=== PATIENT | female | born 1940 | race Hispanic/Latino ===

== ENCOUNTER 2017-01-17 18:45 | Emergency (ER) | payer MEDICAID, SELFPAY ==
[2017-01-17 19:24] LABS: #Basophils 0.1 thou/uL (0.0-0.2); #Eosinphils 0.3 thou/uL (0.0-0.7); #Monocytes 0.5 thou/uL (0.11-0.59); #Neutrophils 2.5 thou/uL (1.40-6.50); %Basophils 1.5 % (0.0-1.0); %Eosinophils 4.6 % (0.0-10.0); %Monocytes 7.2 % (0.0-10.0); Hematocrit 39.7 % (36.0-47.0); Mean Platelet Volume 6.6 fL (7.4-10.4); Red Blood Cell (RBC) Count 4.22 mill/uL (4.20-5.40); White Blood Cell (WBC) Count 6.3 thou/uL (4.8-10.8)
[2017-01-17 19:38] LABS: Lactic Acid - Sepsis 1.2 mmol/L (0.5-2.2)
[2017-01-17 19:43] LABS: ALT (SGPT) 13 U/L (8-55); AST (SGOT) 20 U/L (5-34); Alkaline Phosphatase 78 U/L (40-150); Anion Gap 15 mmol/L (10-20); BUN (Urea Nitrogen) 21 mg/dL (9.8-20.1); Bilirubin, Total 0.4 mg/dL (0.2-1.2); CK (CPK) 121 U/L (29-168); Calc. Creatinine Clearance 0 mL/min (70-130); Calcium 10.1 mg/dL (7.8-10.44); Carbon Dioxide 27 mmol/L (23-31); Chloride 103 mmol/L (98-107); Estimated GFR-MDRD 36; Globulin 3.6 g/dL (2.4-3.5); Protein, Total 7.8 g/dL (6.0-8.3)
[2017-01-17 19:48] LABS: Troponin I Less than 0.010 ng/mL (< 0.028)
[2017-01-17 20:35] LABS: Bilirubin Negative (Negative); Blood, Urine Negative (Negative); Glucose, Urine (Dipstick) Negative (Negative); Ketone, Urine Trace mg/dL (Negative); Nitrite Negative (Negative); Protein, Urine (Dipstick) 30 mg/dL (Neg-Trace)
[2017-01-17 20:39] LABS: Bacteria/HPF None Seen HPF (None Seen); Hyaline Casts/LPF 4-6 HYALINE CAST LPF (0-3 Hyaline); RBC/HPF 0-3 HPF (0-3); Squamous Epithelial 0-3 HPF (0-3)
[2017-01-17] MEDS ORDERED: Ondansetron ODT 4 MG TAB ONE (21:16)
--- NOTE | 2017-01-17 22:45 | RAD ---
ABDOMEN TWO VIEWS UPRIGHT CHEST: History: Nausea, vomiting. FINDINGS: Lung alfredo are clear. Bowel gas pattern unremarkable. Scattered stool and gas in the colon. No free air. No significant sma ll bowel gas. IMPRESSION: No acute abnormality identified. There is a scoliotic curvature of the lumbar spine with degenerative changes in the spine noted. POS: JOSE DANIEL
== END 2017-01-17 23:23 | disposition home or self-care (01) ==
LOC: ERS 18:45
DX: E86.0 Dehydration (principal); R11.2 Nausea with vomiting, unspecified; E11.9 Type 2 diabetes mellitus without complications; Z79.84 Long term (current) use of oral hypoglycemic drugs
CPT/HCPCS: 36416; 74022; 80053; 81003; 81015; 82553; 83605; 84484; 85025; 93005; 96360; Q0162

== ENCOUNTER 2017-12-08 22:16 | Emergency (ER) | payer SELFPAY ==
[2017-12-08 23:01] LABS: Bilirubin Negative (Negative); Blood, Urine Negative (Negative); Clarity CLEAR (Clear); Glucose, Urine (Dipstick) 500 mg/dL (Negative); Leukocyte Negative (Negative); Nitrite Negative (Negative); Protein, Urine (Dipstick) Negative (Neg-Trace); Specific Gravity, Urine 1.005 (1.002-1.036); Urobilinogen 0.2 mg/dL (0.2-1.0)
[2017-12-08 23:05] LABS: #Basophils 0.1 thou/uL (0.0-0.2); #Eosinphils 0.3 thou/uL (0.0-0.7); #Monocytes 0.6 thou/uL (0.11-0.59); #Neutrophils 4.1 thou/uL (1.40-6.50); %Basophils 0.9 % (0.0-1.0); %Eosinophils 3.6 % (0.0-10.0); %Lymphocytes 37.2 % (21.0-51.0); %Monocytes 6.9 % (0.0-10.0); %Neutrophils 51.4 % (42.0-75.0); Hemoglobin 12.2 g/dL (12.0-16.0); Mean Corpuscular HGB CONC 34.5 g/dL (32.0-36.0); Mean Corpuscular Hemoglobin 30.1 pg (27.0-31.0); Mean Corpuscular Volume 87.2 fL (78.0-98.0); Mean Platelet Volume 7.2 fL (7.4-10.4); Platelet Count 315 thou/uL (130-400); RBC Distribution Width 12.9 % (11.5-14.5); Red Blood Cell (RBC) Count 4.07 mill/uL (4.20-5.40)
--- NOTE | 2017-12-08 23:12 | RAD ---
PORTABLE CHEST ONE VIEW: 12/08/17 at 10:02 p.m. HISTORY: Hyperglycemia. FINDINGS: Comparison is made with exam of 01/17/17. The heart size is borderline. No lobar consolidation, pneumothoraces, delvin pulmonary edema or pleura l effusions are seen. IMPRESSION: No acute process. POS: JOSE DANIELH
[2017-12-08 23:36] LABS: ALT (SGPT) 11 U/L (8-55); AST (SGOT) 15 U/L (5-34); Albumin 3.5 g/dL (3.4-4.8); Alkaline Phosphatase 104 U/L (40-150); Anion Gap 16 mmol/L (10-20); BUN (Urea Nitrogen) 16 mg/dL (9.8-20.1); Bilirubin, Total 0.5 mg/dL (0.2-1.2); Calc. Creatinine Clearance 0 mL/min (70-130); Carbon Dioxide 15 mmol/L (23-31); Chloride 103 mmol/L (98-107); Estimated GFR-MDRD 40; Globulin 3.3 g/dL (2.4-3.5); Glucose 410 mg/dL (83-110); Magnesium 1.7 mg/dL (1.6-2.6); Potassium 3.8 mmol/L (3.5-5.1); Protein, Total 6.8 g/dL (6.0-8.3); Sodium 130 mmol/L (136-145)
[2017-12-08 23:41] LABS: CKMB 2.2 ng/mL (0-6.6); Troponin I Less than 0.010 ng/mL (< 0.028)
[2017-12-09 00:09] LABS: Base Excess-Venous -4.2 mmol/L (0 (+/- 2.5)); Bicarbonate (HCO3v) 19.8 mmol/L (1.0-85.0); CO2 Tension (PvCO2) 31.9 mmHg (41.0-51.0); Calcium, Ionized 1.11 mmol/L (1.12-1.32); Hemoglobin - Calc 11.6 g/dL (12.0-18.0); O2 Tension (PvO2) 123.2 mmHg (35.0-45.0); Potassium 3.8 mmol/L (3.4-4.7); T. Carbon Dioxide 20.8 mmol/L (1.0-85.0); pH (Venous) 7.401 (7.35-7.45); vO2 Saturation-calc 98.8 % (94-98)
== END 2017-12-09 01:10 | disposition home or self-care (01) ==
LOC: ERS 22:16
DX: E11.65 Type 2 diabetes mellitus with hyperglycemia (principal); F32.9 Major depressive disorder, single episode, unspecified; Z79.899 Other long term (current) drug therapy
CPT/HCPCS: 36415; 36416; 51701; 71045; 80053; 81003; 82010; 82330; 82435; 82553; 82803; 83735; 84132; 84295; 84484; 85014; 85025; 93005; 96360; 96361; A4353

== ENCOUNTER 2018-07-20 13:57 | Emergency (ER) | payer SELFPAY ==
[2018-07-20 15:31] LABS: #Basophils 0.1 thou/uL (0.0-0.2); #Eosinphils 0.4 thou/uL (0.0-0.7); #Lymphocytes 3.5 thou/uL (1.20-3.40); #Monocytes 0.8 thou/uL (0.11-0.59); %Basophils 1.1 % (0.0-1.0); %Eosinophils 4.4 % (0.0-10.0); %Lymphocytes 39.7 % (21.0-51.0); %Monocytes 8.6 % (0.0-10.0); %Neutrophils 46.2 % (42.0-75.0); Hemoglobin 11.7 g/dL (12.0-16.0); Mean Corpuscular HGB CONC 33.7 g/dL (32.0-36.0); Mean Corpuscular Hemoglobin 28.7 pg (27.0-31.0); Mean Platelet Volume 6.8 fL (7.4-10.4); Platelet Count 346 thou/uL (130-400); RBC Distribution Width 14.2 % (11.5-14.5); Red Blood Cell (RBC) Count 4.08 mill/uL (4.20-5.40); White Blood Cell (WBC) Count 8.7 thou/uL (4.8-10.8)
[2018-07-20 15:37] LABS: INR-International Normal Ratio 0.9; PTT 29.2 SEC (22.9-36.1); Prothrombin Time 12.4 SEC (12.0-14.7)
[2018-07-20] MEDS ORDERED: Aspirin Chewable 81 MG TAB ONE (15:51)
[2018-07-20 15:54] LABS: ALT (SGPT) 9 U/L (8-55); AST (SGOT) 14 U/L (5-34); Albumin 3.6 g/dL (3.4-4.8); Alkaline Phosphatase 85 U/L (40-150); Anion Gap 16 mmol/L (10-20); BUN (Urea Nitrogen) 22 mg/dL (9.8-20.1); Bilirubin, Total 0.2 mg/dL (0.2-1.2); CK (CPK) 37 U/L (29-168); Calc. Creatinine Clearance 0 mL/min (70-130); Calcium 9.5 mg/dL (7.8-10.44); Carbon Dioxide 22 mmol/L (23-31); Chloride 106 mmol/L (98-107); Estimated GFR-MDRD 41; Globulin 2.7 g/dL (2.4-3.5); Glucose 209 mg/dL (83-110); Potassium 4.7 mmol/L (3.5-5.1); Protein, Total 6.3 g/dL (6.0-8.3); Sodium 139 mmol/L (136-145)
--- NOTE | 2018-07-20 16:00 | RAD ---
TWO VIEWS CHEST: DATE: 07/20/2018. PROVIDED CLINICAL HISTORY: Chest pain. FINDINGS: Comparison 12/08/2017. Cardiac and mediastinal silhouette is within normal limits. Lungs appear calvin ar. No pleural fluid or pneumothorax apparent. IMPRESSION: No evidence for an acute cardiopulmonary process. POS: [facility]
== END 2018-07-20 16:43 | disposition home or self-care (01) ==
LOC: ERS 13:57
DX: M54.6 Pain in thoracic spine (principal); E11.9 Type 2 diabetes mellitus without complications; I10 Essential (primary) hypertension; F32.9 Major depressive disorder, single episode, unspecified; F17.210 Nicotine dependence, cigarettes, uncomplicated; Z71.6 Tobacco abuse counseling
CPT/HCPCS: 36415; 71046; 80053; 82550; 84484; 85025; 85610; 85730; 93005; 99406

== ENCOUNTER 2018-11-01 13:36 | Observation (INO) | payer SELFPAY ==
--- NOTE | 2018-11-01 13:58 | RAD ---
EXAM: Single view of the chest HISTORY: Chest pain for 2 days COMPARISON: 12/08/2017 FINDINGS: Single view of the chest shows a normal sized cardiomediastinal silhouette. There is no twyla dence of consolidation, mass, or pleural effusion. The bones are unremarkable. IMPRESSION: No evidence of acute cardiopulmonary disease
[2018-11-01] MEDS ORDERED: Aspirin 325 MG TAB ONE (14:03)
[2018-11-01] MEDS ORDERED: Nitroglycerin 2% Ointment 1 INCH/1 GM Packet ONE (14:03)
[2018-11-01 14:12] LABS: #Lymphocytes 2.1 thou/uL (1.20-3.40); #Monocytes 0.3 thou/uL (0.11-0.59); %Basophils 0.4 % (0.0-1.0); %Eosinophils 0.5 % (0.0-10.0); %Lymphocytes 24.7 % (21.0-51.0); %Monocytes 3.8 % (0.0-10.0); %Neutrophils 70.6 % (42.0-75.0); Mean Corpuscular HGB CONC 33.6 g/dL (32.0-36.0); Mean Corpuscular Hemoglobin 27.5 pg (27.0-31.0); Mean Corpuscular Volume 81.9 fL (78.0-98.0); Platelet Count 374 thou/uL (130-400); RBC Distribution Width 13.9 % (11.5-14.5); Red Blood Cell (RBC) Count 3.99 mill/uL (4.20-5.40); White Blood Cell (WBC) Count 8.5 thou/uL (4.8-10.8)
[2018-11-01 14:35] LABS: ALT (SGPT) 12 U/L (8-55); AST (SGOT) 9 U/L (5-34); Albumin 3.7 g/dL (3.4-4.8); Alkaline Phosphatase 85 U/L (40-150); Anion Gap 15 mmol/L (10-20); BUN (Urea Nitrogen) 22 mg/dL (9.8-20.1); Bilirubin, Total 0.3 mg/dL (0.2-1.2); CK (CPK) 37 U/L (29-168); Calc. Creatinine Clearance 0 mL/min (70-130); Calcium 9.3 mg/dL (7.8-10.44); Carbon Dioxide 22 mmol/L (23-31); Chloride 103 mmol/L (98-107); Estimated GFR-MDRD 38; Glucose 392 mg/dL (83-110); Protein, Total 6.7 g/dL (6.0-8.3); Sodium 135 mmol/L (136-145)
[2018-11-01] MEDS ORDERED: Ondansetron PF 4 MG/2 ML Vial IVP PRN ×2 (16:42→21:48)
[2018-11-01] MEDS ORDERED: Ondansetron ODT 4 MG TAB PO PRN ×2 (16:42→21:48)
[2018-11-01] MEDS ORDERED: Acetaminophen 325 MG TAB PO PRN (16:42)
[2018-11-01 17:40] VITALS: BMI 26.6
[2018-11-01 18:11] LABS: Troponin I Less than 0.010 ng/mL (< 0.028)
[2018-11-01] MEDS ORDERED: Famotidine 20 MG TAB PO SCH (21:00)
[2018-11-01] MEDS ORDERED: HumaLOG 300 UNITS/3 ML VIAL SC PRN ×2 (21:37)
[2018-11-01] MEDS ORDERED: Dextrose 5% in Water 1,000 ML IV PRN (21:37)
[2018-11-01] MEDS ORDERED: Dextrose 50% Abboject 50 ML SYRINGE SLOW IVP PRN (21:37)
[2018-11-01] MEDS: Acetaminophen 325 MG TAB PO PRN (22:19)
--- NOTE | 2018-11-02 00:12 | HP ---
PRIMARY CARE PHYSICIAN: Linda Hamm MD CHIEF COMPLAINT: Chest pain. HISTORY OF PRESENT ILLNESS: Ms. Qureshi is a 78-year-old female, who had presented to [facility] with complaints of chest pain. She has a past medical history of hypertension, diabetes mellitus type 2. She states that this pain has been on and off over the last four weeks. However, the pain that she felt late last night seemed to be worse. She states that she had actually developed left-sided chest pain that radiated down left arm and up to the neck and into her head. She states that during this time, she felt lightheaded and dizzy and she actually became nauseous. In the ED, she was worked up and her troponin was found to be less than 0.010 and labs showed creatinine, BUN, and estimated GFR that was consistent with her underlying chronic kidney disease. She also had a chest x-ray which was also unremarkable. She was sinus rhythm on the monitor and she was given aspirin, topical nitro, and normal saline. Upon arriving to the ED, her blood pressure was elevated with systolic in the 180s and this had improved after nitroglycerin. She states that she is feeling somewhat better at this time and actually denied any fever, chills, headache, blurred vision, dizziness, chest pain, palpitations, shortness of breath, abdominal pain, nausea, vomiting, or any other symptoms at this time. She is Scottish speaking and a portable memorial marker designer was needed during the visit. REVIEW OF SYSTEMS: All other systems reviewed and found to be negative unless mentioned in the HPI. PAST MEDICAL HISTORY: Hypertension, diabetes mellitus type 2. PAST SURGICAL HISTORY: Cholecystectomy. PSYCHIATRIC HISTORY: Depression. SOCIAL HISTORY: The patient denies any alcohol use or any illicit drug use. However, she does admit to smoking 4 to 5 cigarettes per day. KNOWN ALLERGIES: No known drug allergies. CURRENT HOME MEDICATIONS: 1. Metformin 1000 mg oral twice daily. 2. Glyburide 5 mg p.o. daily. 3. Albuterol sulfate 2 puff inhalation q.6 hours as needed for shortness of breath or wheezing. PHYSICAL EXAMINATION: VITAL SIGNS: BP 173/85, pulse 64, respirations 20, temperature 98.8, and O2 saturation 96% on room air. GENERAL: The patient is awake, alert, and oriented x3. She is Scottish speaking, lying comfortably in bed and in no acute distress. Her daughter is at bedside. HEENT: Atraumatic, normocephalic. Pupils are round and reactive to light. Extraocular muscles intact. Moist mucous membranes noted. NECK: Soft and supple. Trachea midline. CARDIOVASCULAR: Positive S1 and S2. Regular rate and rhythm. No murmur auscultated. RESPIRATORY: Clear to auscultation bilaterally. No wheezes, rales, or rhonchi. ABDOMEN: Soft, nontender. Bowel sounds present. MUSCULOSKELETAL: Strength 5+ bilateral upper and lower extremities. Moves all extremities equal. NEUROLOGIC: Cranial nerves 2 through 12 grossly intact. No focal deficits noted. Speech intact and normal. Gait not assessed. SKIN: Warm, dry, and intact. No rashes. No ulceration noted. PSYCHIATRIC: Good mood and affect. She states that she had lost her back in March and since then she has had a rough time and is quite sad from this loss. LABORATORY DATA: WBC 8.5, RBC 3.99, hemoglobin 11.0, hematocrit 32.7, platelets 374. Sodium 135, potassium 5.0, anion gap 15, BUN 22, creatinine 1.35, estimated GFR at 38, glucose 392, AST 9, ALT 12. Troponin less than 0.010. DIAGNOSTIC IMAGING: Portable chest x-ray showed no evidence of acute cardiopulmonary disease. ASSESSMENT AND PLAN: 1. Chest pain. So far, her cardiac enzymes are negative, but we will trend these out for a total of 3. She will be transferred to the observation tele floor. She will also undergo cardiac stress test likely in the morning. 2. Hypertension. We will monitor blood pressure and other vital signs closely and we will add p.r.n. antihypertensive coverage at this time. 3. Diabetes mellitus type 2. We will restart her home regimen along with an insulin sliding scale with frequent Accu-Cheks. 4. Deep venous thrombosis and gastrointestinal prophylaxis. 5. Code status, full code. 6. Surrogate decision maker is her daughter, Starla Qureshi. DISPOSITION: Pending further workup and clinical findings, she will likely return home upon discharge. Job ID: [id number]
[2018-11-02] MEDS ORDERED: Enoxaparin Sodium 40 MG/0.4 ML SYRINGE SC SCH (09:00)
[2018-11-02] MEDS ORDERED: Famotidine 20 MG TAB PO SCH (09:00)
[2018-11-02] MEDS ORDERED: Amlodipine 10 MG TAB PO SCH (09:15)
--- NOTE | 2018-11-02 09:19 | PDOC.HOSPP ---
- Subjective Encounter Date: 11/02/18 Encounter Time: 09:17 Subjective: 78 y/o female with HTN, DM and tobacco abuse admitted with intermittent chest pain since about 4 weeks which worsened necessitating ER visit. Admitted to cough. Chest has subsided. Denied Fever. - Objective Vital Signs & Weight: Vital Signs (12 hours) Temp Pulse Resp BP Pulse Ox 11/02/18 07:33 98.5 F 65 20 185/101 H 94 L 11/02/18 03:37 97.7 F 62 22 H 162/70 H 99 11/01/18 23:43 97.4 F L 63 19 177/87 H 96 Weight Weight 145 lb 11.2 oz I&O: 11/01/18 11/02/18 11/03/18 06:59 06:59 06:59 Intake Total 580 Balance 580 Result Diagrams: 11/01/18 14:01 11/01/18 14:01 Additional Labs: Accuchecks 11/02/18 11/01/18 11/01/18 06:10 23:36 20:24 POC Glucose 300 H 413 H 475 H Hospitalist ROS - Medication Medications: Active Medications Generic Name Dose Route Start Last Admin Trade Name Freq PRN Reason Stop Dose Admin Acetaminophen 650 mg 11/01/18 21:47 11/01/18 22:19 Tylenol PO 650 mg Q4H PRN Administration Headache/Fever/Mild Pain (1-3) Insulin Human Lispro 0 units 11/01/18 21:37 11/01/18 22:19 Humalog SC 5 unit .BEDTIME SLIDING SC PRN Administration Bedtime Correctional Scale - Exam General Appearance: awake alert Eye: anicteric sclera ENT: normocephalic atraumatic Neck: supple, symmetric Heart: RRR Respiratory: no ronchi, no tachypnea Respiratory - other findings: fair air entry with scattered crackles and transmitted sound. Gastrointestinal: soft, non-tender, non-distended, normal bowel sounds Extremities: no cyanosis, no edema Neurological: CN's grossly intact, no focal deficits Psychiatric: A&O x 3 Hosp A/P (1) Chest pain Code(s): R07.9 - CHEST PAIN, UNSPECIFIED Status: Acute (2) COPD (chronic obstructive pulmonary disease) with acute bronchitis Code(s): J44.0 - CHRONIC OBSTRUCTIVE PULMON DISEASE W ACUTE LOWER RESP INFCT Status: Acute (3) CKD (chronic kidney disease), stage III Status: Chronic (4) Diabetes type 2, controlled Code(s): E11.9 - TYPE 2 DIABETES MELLITUS WITHOUT COMPLICATIONS Status: Chronic Qualifiers: Diabetes mellitus [facility] insulin use: without [facility] use Diabetes mellitus complication status: with kidney complications Diabetes mellitus complication detail: with chronic kidney disease Chronic kidney disease stage : stage 3 (moderate) Qualified Code(s): E11.22 - Type 2 diabetes mellitus with diabetic chronic kidney disease (5) Hypertension Code(s): I10 - ESSENTIAL (PRIMARY) HYPERTENSION Status: Chronic (6) Tobacco abuse Code(s): Z72.0 - TOBACCO USE Status: Chronic - Plan Start doxycycline and mucinex for acute bronchitis. Start amlodipine for HTN Get UA and urine electrolytes. Await Stress cristy.
[2018-11-02] MEDS ORDERED: guaiFENesin ER 600 MG TAB PO SCH (09:30)
[2018-11-02] MEDS: guaiFENesin ER 600 MG TAB PO SCH ×2 (09:57→20:44)
[2018-11-02] MEDS: Enoxaparin Sodium 40 MG/0.4 ML SYRINGE SC SCH (09:57)
[2018-11-02] MEDS: Doxycycline 100 MG CAP PO SCH ×2 (09:57→20:44)
--- NOTE | 2018-11-02 13:33 | NM ---
EXAM: Nuclear medicine cardiac perfusion examination with ejection fraction HISTORY: Chest pain, hypertension, diabetes TECHNIQUE: Rest images: 9.0 mCi technetium 99m sestamibi Stress images: 30.3 mCi of technetium 9M sestamibi; Lexiscan COMPARISON: 01/26/2012 FINDINGS: Tomographic images: No fixed or reversible perfusion defects. Gated images: Normal wall motion and ejection fraction of greater than 70%. EDV: 49 mL LHR: 0.3 TID: 1.1 IMPRESSION: No evidence of ischemia
[2018-11-02 13:50] LABS: Hemoglobin A1c 13.8 % (4.0-6.0)
[2018-11-02 14:00] LABS: Albumin 3.7 g/dL (3.4-4.8); Anion Gap 12 mmol/L (10-20); BUN (Urea Nitrogen) 17 mg/dL (9.8-20.1); BUN/Creatinine Ratio 14.91; Calc. Creatinine Clearance 42 mL/min (70-130); Calcium 9.1 mg/dL (7.8-10.44); Carbon Dioxide 23 mmol/L (23-31); Chloride 103 mmol/L (98-107); Estimated GFR-MDRD 46; Glucose 285 mg/dL (83-110); Phosphorus 3.5 mg/dL (2.3-4.7); Sodium 134 mmol/L (136-145)
[2018-11-02] MEDS ORDERED: Losartan 25 MG TAB PO SCH (14:30)
[2018-11-02] MEDS ORDERED: Regadenoson 0.4 MG/5 ML SYRINGE ONE (17:07)
[2018-11-02 17:39] LABS: Bilirubin Negative (Negative); Blood, Urine Trace (Negative); Clarity Clear (Clear); Glucose, Urine (Dipstick) Greater than 1000 mg/dL (Negative); Leukocyte 500 Leu/uL (Negative); Nitrite Negative (Negative); Protein, Urine (Dipstick) 10 mg/dL (Neg-Trace); Squamous Epithelial 0-3 HPF (0-3); Urobilinogen Normal mg/dL (Less than 2); WBC/HPF Greater than 50 HPF (0-3)
[2018-11-02 17:50] LABS: Bacteria/HPF 3+ HPF (None Seen)
[2018-11-02 17:52] LABS: Urine Culture Reflex Yes Yes
[2018-11-02] MEDS ORDERED: glipiZIDE 5 MG TAB PO SCH (18:00)
[2018-11-02] MEDS ORDERED: HumuLIN 70/30 (300 UNITS/3 ML VIAL) SC SCH (18:00)
[2018-11-02 18:03] LABS: Creatinine, Urine 24.22 mg/dL (47-110)
[2018-11-02] MEDS ORDERED: HumaLOG 300 UNITS/3 ML VIAL SC PRN ×2 (20:37)
[2018-11-02] MEDS: Cefdinir 300 MG CAP PO SCH (20:44)
[2018-11-02] MEDS: Acetaminophen 325 MG TAB PO PRN (23:54)
[2018-11-03] MEDS ORDERED: Lidocaine 2% Viscous Solution 10 ML, Aluminum & Magnesium Hydroxide 30 ML SSW SCH (00:30)
[2018-11-03] MEDS ORDERED: HumuLIN 70/30 (300 UNITS/3 ML VIAL) SC SCH (07:30)
[2018-11-03] MEDS ORDERED: glipiZIDE 5 MG TAB PO SCH (07:30)
[2018-11-03] MEDS ORDERED: Losartan 25 MG TAB PO SCH (09:00)
[2018-11-03] MEDS ORDERED: Amlodipine 10 MG TAB PO SCH (09:00)
[2018-11-03] MEDS ORDERED: Famotidine 20 MG TAB PO SCH (09:00)
[2018-11-03] MEDS: Cefdinir 300 MG CAP PO SCH (09:57)
[2018-11-03] MEDS: Doxycycline 100 MG CAP PO SCH (09:57)
[2018-11-03] MEDS: guaiFENesin ER 600 MG TAB PO SCH (09:57)
[2018-11-03] MEDS: Enoxaparin Sodium 40 MG/0.4 ML SYRINGE SC SCH (09:58)
[2018-11-03 12:05] VITALS: BP 118/56; TEMP 98.3
--- NOTE | 2018-11-04 02:50 | DIS ---
DATE OF ADMISSION: 11/01/2018 DATE OF DISCHARGE: 11/03/2018 DISCHARGE DIAGNOSES: As of the following; 1. Chest pain. 2. Chronic obstructive pulmonary disease with acute bronchitis. 3. Chronic kidney disease. 4. Diabetes. 5. Hypertension. 6. Tobacco use. HOSPITAL COURSE: The patient is a 78-year-old female who initially presented to the hospital with complaints of pain to her chest area. She also stated pain to her left shoulder and left arm. The patient underwent a stress test, which was essentially normal. She also was found to have UTI and her cultures indicated Escherichia coli. She was put on antibiotics. She also was found to have an elevated hemoglobin A1c of 13.8. The patient was put on 70/30 insulin. This was instructed to the patient and the patient's daughter who was at the bedside. The patient does not have a primary care doctor and recommended the patient to see a primary care doctor. DISCHARGE MEDICATIONS: 1. Norvasc 10 mg daily. 2. Cipro 500 mg twice a day. 3. 70/30 insulin b.i.d. 4. Cozaar 100 mg daily. 5. Glipizide 5 mg b.i.d. 6. Tramadol 25 mg b.i.d. 7. Metformin 1000 units p.o. b.i.d. I have asked the patient to follow up with a primary care next week. Also to check blood sugars on a daily basis and also to take her blood pressure medication. Also educated her about low-salt diet. PHYSICAL EXAMINATION: VITAL SIGNS: Temperature 98.3, pulse 76, respirations 16, 90% on room air, blood pressure 118/56. GENERAL: She is awake, alert, and oriented x3. Does not appear in any distress. CV: S1, S2 present. No murmurs, rubs, or gallops. ABDOMEN: Soft and nontender. Bowel sounds are present x2. Again, she will be discharged home. She will follow up with her primary care doctor. Job ID: [id number]
--- NOTE | 2018-11-04 22:33 | EKG ---
Test Reason : Blood Pressure : / mmHG Vent. Rate : 067 BPM Atrial Rate : 067 BPM P-R Int : 180 ms QRS Dur : 086 ms QT Int : 420 ms P-R-T Axes : 038 -07 047 degrees QTc Int : 443 ms Normal sinus rhythm Septal infarct , age undetermined Abnormal ECG Confirmed by VIIRDIANA MICHELLE, YESIKA Dodd ([id number]), editor producer DIONE CERVANTES ([id number]) on 11/04/2018 10:32:40 PM Referred By: Confirmed By:YESIKA KEMP MD
== END 2018-11-03 17:10 | disposition home or self-care (01) ==
LOC: ERS 13:36 → 2SW 15:00 → ERS 17:08
PROVIDERS: ADMIT Family Medicine; ATTEND Family Medicine
DX: R07.9 Chest pain, unspecified (principal); I12.9 Hypertensive chronic kidney disease with stage 1 through stage 4 chronic kidney disease, or unspecified chronic kidney disease; N18.9 Chronic kidney disease, unspecified; F32.9 Major depressive disorder, single episode, unspecified; F17.210 Nicotine dependence, cigarettes, uncomplicated; J44.9 Chronic obstructive pulmonary disease, unspecified; Z79.84 Long term (current) use of oral hypoglycemic drugs; Z79.899 Other long term (current) drug therapy
CPT/HCPCS: 36415; 36416; 71045; 78452; 80053; 80069; 81001; 82550; 82570; 83036; 84156; 84300; 84484; 84540; 85025; 87077; 87086; 87186; 93005; 93017; 94760; 96360; 96372; A9500; G0378; J1650; J1815; J2785; Q0162

== ENCOUNTER 2018-12-12 16:29 | Emergency (ER) | payer MEDICAID, SELFPAY ==
[2018-12-12 17:03] LABS: #Basophils 0.1 thou/uL (0.0-0.2); #Eosinphils 0.5 thou/uL (0.0-0.7); #Lymphocytes 3.8 thou/uL (1.20-3.40); #Monocytes 0.8 thou/uL (0.11-0.59); #Neutrophils 5.3 thou/uL (1.40-6.50); %Basophils 0.7 % (0.0-1.0); %Eosinophils 4.5 % (0.0-10.0); %Neutrophils 50.8 % (42.0-75.0); Hemoglobin 10.8 g/dL (12.0-16.0); Mean Corpuscular HGB CONC 34.1 g/dL (32.0-36.0); Mean Corpuscular Hemoglobin 27.8 pg (27.0-31.0); Mean Corpuscular Volume 81.5 fL (78.0-98.0); Mean Platelet Volume 7.1 fL (7.4-10.4); Platelet Count 406 thou/uL (130-400); RBC Distribution Width 14.7 % (11.5-14.5); Red Blood Cell (RBC) Count 3.89 mill/uL (4.20-5.40); White Blood Cell (WBC) Count 10.5 thou/uL (4.8-10.8)
--- NOTE | 2018-12-12 17:12 | RAD ---
Exam: Chest one view HISTORY:Hypertension Comparison: 11/01/2018 FINDINGS: Lungs: No masses or consolidation. Cardiac silhouette: Normal size Vascular calcification. Pulmonary vessels: Normal Pleural Spaces: Clear Pneumothorax: None Osseous abnormalities: None of acuity. IMPRESSION: Stable chest. No focal consolidation.
[2018-12-12 17:27] LABS: ALT (SGPT) 9 U/L (8-55); AST (SGOT) 14 U/L (5-34); Albumin 3.4 g/dL (3.4-4.8); Alkaline Phosphatase 83 U/L (40-110); Anion Gap 15 mmol/L (10-20); BUN (Urea Nitrogen) 29 mg/dL (9.8-20.1); Bilirubin, Total 0.3 mg/dL (0.2-1.2); Calc. Creatinine Clearance 0 mL/min (70-130); Calcium 8.6 mg/dL (7.8-10.44); Carbon Dioxide 20 mmol/L (23-31); Chloride 105 mmol/L (98-107); Estimated GFR-MDRD 29; Glucose 273 mg/dL (83-110); Potassium 4.5 mmol/L (3.5-5.1); Protein, Total 6.4 g/dL (6.0-8.3); Sodium 135 mmol/L (136-145)
[2018-12-12 18:21] LABS: Bilirubin Negative (Negative); Blood, Urine Negative (Negative); Clarity Clear (Clear); Glucose, Urine (Dipstick) 150 mg/dL (Negative); Leukocyte Negative Leu/uL (Negative); Nitrite Negative (Negative); Protein, Urine (Dipstick) Negative (Neg-Trace); Urobilinogen Normal mg/dL (Less than 2)
--- NOTE | 2018-12-16 15:47 | EKG ---
Test Reason : Blood Pressure : / mmHG Vent. Rate : 059 BPM Atrial Rate : 059 BPM P-R Int : 172 ms QRS Dur : 074 ms QT Int : 426 ms P-R-T Axes : 025 -04 033 degrees QTc Int : 421 ms Sinus bradycardia Septal infarct , age undetermined Abnormal ECG Confirmed by DAE OH ([id number]), editorial director RONAK CLARK ([id number]) on 12/16/2018 3:47:24 PM Referred By: Confirmed By:DAE OH
== END 2018-12-12 19:06 | disposition home or self-care (01) ==
LOC: ERS 16:29
DX: E86.0 Dehydration (principal); E11.9 Type 2 diabetes mellitus without complications; I10 Essential (primary) hypertension; F32.9 Major depressive disorder, single episode, unspecified; F17.210 Nicotine dependence, cigarettes, uncomplicated; Z79.899 Other long term (current) drug therapy
CPT/HCPCS: 36415; 36416; 51701; 71045; 80053; 81003; 83605; 84484; 85025; 87040; 87086; 93005; 96360; A4353

== ENCOUNTER 2019-04-06 16:38 | Inpatient (IN) | payer MEDICAID, SELFPAY ==
[~2019-04-06 16:38] MED LIST: Iopamidol-370 76% 500 ML 1 ML ONE
[2019-04-06 17:07] LABS: #Basophils 0.1 thou/uL (0.0-0.2); #Eosinphils 0.4 thou/uL (0.0-0.7); #Lymphocytes 3.7 thou/uL (1.20-3.40); #Monocytes 0.7 thou/uL (0.11-0.59); #Neutrophils 4.2 thou/uL (1.40-6.50); %Basophils 0.9 % (0.0-1.0); %Eosinophils 4.2 % (0.0-10.0); %Monocytes 7.5 % (0.0-10.0); %Neutrophils 46.4 % (42.0-75.0); Hemoglobin 9.6 g/dL (12.0-16.0); Mean Corpuscular HGB CONC 33.6 g/dL (32.0-36.0); Mean Corpuscular Hemoglobin 25.9 pg (27.0-31.0); Mean Corpuscular Volume 77.2 fL (78.0-98.0); Mean Platelet Volume 7.1 fL (7.4-10.4); Platelet Count 383 thou/uL (130-400); RBC Distribution Width 14.7 % (11.5-14.5)
--- NOTE | 2019-04-06 17:07 | CT ---
CT BRAIN WITHOUT CONTRAST: HISTORY: Altered mental status, level 2 stroke FINDINGS: No evidence of acute infarct, hemorrhage, midline shift or abnormal extra-axial fluid collections is seen. There are changes of chronic small vessel ischemic disease in the periventricular white matter. The ventricular size is appropriate and the basilar cisterns are patent. The bony calvarium i s intact. The visualized paranasal sinuses and mastoid air cells are well aerated. IMPRESSION: No CT evidence of acute intracranial process. Discussed over the telephone with ER physician Dr. Pond at 5:04 PM
[2019-04-06 17:14] LABS: PTT 31.7 SEC (22.9-36.1); Prothrombin Time 12.8 SEC (12.0-14.7)
[2019-04-06] MEDS ORDERED: niCARdipine 25 MG in Sodium Chloride 0.9% 250 ML 240 ML IVPB SCH ×2 (17:15→19:00)
--- NOTE | 2019-04-06 17:24 | RAD ---
XR Chest 1 View Portable HISTORY: Altered mental status COMPARISON: 12/12/2018 FINDINGS: The heart size is normal. The lungs are well expanded without focal areas of consolidation, pneumothorax or pleural effusions. IMPRESSION: No radiographic evidence of acute cardiopulmonary process.
[2019-04-06 17:25] LABS: ALT (SGPT) Less than 7 U/L (8-55); AST (SGOT) 11 U/L (5-34); Albumin 3.7 g/dL (3.4-4.8); Alkaline Phosphatase 85 U/L (40-110); Anion Gap 13 mmol/L (10-20); BUN (Urea Nitrogen) 17 mg/dL (9.8-20.1); Bilirubin, Total 0.2 mg/dL (0.2-1.2); CK (CPK) 56 U/L (29-168); Calc. Creatinine Clearance 0 mL/min (70-130); Calcium 9.2 mg/dL (7.8-10.44); Carbon Dioxide 21 mmol/L (23-31); Chloride 108 mmol/L (98-107); Estimated GFR-MDRD 37; Globulin 3.6 g/dL (2.4-3.5); Glucose 307 mg/dL (83-110); Potassium 4.4 mmol/L (3.5-5.1); Protein, Total 7.3 g/dL (6.0-8.3); Sodium 138 mmol/L (136-145)
[2019-04-06 17:30] LABS: Base Excess-Venous -1.6 mmol/L (-2.0 to 3.0); Bicarbonate (HCO3v) 20.3 mmol/L (22.0-28.0); CO2 Tension (PvCO2) 24.4 mmHg (40.0-50.0); Calcium, Ionized 1.08 mmol/L (See Comments:); Chloride 106 mmol/L (98-107); Hemoglobin - Calc 9.2 g/dL (12.0-16.0); Sodium 137 mmol/L (138-145); vO2 Saturation-calc 85.3 % (60.0-85.0)
[2019-04-06 17:44] LABS: Bilirubin Negative (Negative); Blood, Urine Negative (Negative); Clarity Clear (Clear); Glucose, Urine (Dipstick) >=1000 mg/dL (Negative); Leukocyte Negative Leu/uL (Negative); Nitrite Negative (Negative); Protein, Urine (Dipstick) 10 mg/dL (Neg-Trace); Urobilinogen Normal mg/dL (Less than 2)
[2019-04-06 17:57] LABS: Amphetamine Not Detected (NotDetected); Barbiturates Screen Not Detected (NotDetected); Benzodiazepine Screen Not Detected (NotDetected); Cocaine Metabolite Screen Not Detected (NotDetected); Medtox Control Line Valid? VALID (VALID); Medtox Reader # READER 1; Methadone Not Detected (NotDetected); Methamphetamine Not Detected (NotDetected); Opiate Screen Not Detected (NotDetected); Oxycodone Screen Not Detected (NotDetected); Phencyclidine (PCP) Not Detected (NotDetected); THC/Cannabinoid Screen Not Detected (NotDetected); Tricyclic Screen Not Detected (NotDetected)
--- NOTE | 2019-04-06 17:57 | CT ---
CT HEAD WITH IV CONTRAST AND 3D POSTPROCESSING: CTA NECK WITH IV CONRAST AND 3D POSTPROCESSIN04/06/19 HISTORY: Level II stroke, altered mental status. FINDINGS/IMPRESSION: There is plaque formation noted in the vertebrobasilar and carotid artery systems bilaterally. No ev idence of high grade stenosis, major branch occlusion, or aneurysm formation is seen. Discussed over the telephone with ER physician, Dr. Pond at 5:26 p.m. POS: OFF
[2019-04-06] MEDS ORDERED: Ondansetron PF 4 MG/2 ML Vial ONE (18:11)
[2019-04-06] MEDS ORDERED: CCU Electrolyte Replacement 1 EACH IVPB SCH (18:49)
[2019-04-06] MEDS ORDERED: Magnesium 2 GM/50 ML 2 GM in Premix Bag 1 BAG IVPB PRN (18:57)
[2019-04-06] MEDS ORDERED: Magnesium Oxide 400 MG TAB PO PRN ×2 (18:57)
[2019-04-06] MEDS ORDERED: Potassium Phosphate 15 MMOL in Sodium Chloride 0.9% 250 ML 250 ML IV PRN (18:57)
[2019-04-06] MEDS ORDERED: Potassium Phosphate 12 MMOL in Sodium Chloride 0.9% 250 ML 250 ML IV PRN (18:57)
[2019-04-06] MEDS ORDERED: CCU ELECTROLYTE REPLACEMENT PROTOCOL FS PRN (18:57)
[2019-04-06] MEDS ORDERED: PHOS-NAK 1 PKT PACK PO PRN ×2 (18:57)
[2019-04-06] MEDS ORDERED: Potassium Chloride 40 MEQ in Sodium Chloride 0.9% 250 ML 250 ML IVPB PRN (18:57)
[2019-04-06] MEDS ORDERED: Potassium Chloride 40 MEQ in Premix Bag 1 BAG IVPB PRN (18:57)
[2019-04-06] MEDS ORDERED: Potassium Chloride 20 MEQ TAB PO PRN (18:57)
[2019-04-06] MEDS ORDERED: Potassium Phosphate 9 MMOL in Sodium Chloride 0.9% 100 ML IVPB PRN (18:57)
[2019-04-06] MEDS ORDERED: Aspirin Chewable 81 MG TAB ONE (19:03)
[2019-04-06] MEDS ORDERED: Dextrose 5% in Water 1,000 ML IV PRN (19:15)
[2019-04-06] MEDS ORDERED: Dextrose 50% Abboject 50 ML SYRINGE SLOW IVP PRN (19:15)
--- NOTE | 2019-04-06 19:42 | CT ---
CT ABDOMEN AND PELVIS WITHOUT CONTRAST: 04/06/19 HISTORY: Abdominal pain. FINDINGS: Absence of oral and IV contrast reduces the sensitivity of the exam, particularly for evaluation of v ascular structures, solid organs and bowel. There is contrast in the collecting systems, ureters, and the urinary bladder from recent CT angiogra m of the head. The lung bases are grossly unremarkable. A small hiatal hernia is present. The patien t is post cholecystectomy. No hydroureteronephrosis noted on either side. There is a 18 mm cyst in t he superior pole of the left kidney. No free air or free fluid is seen in the abdomen or pelvis. Uterus and ovaries are present. The small bowel loops are not abnormally dilated. There is colonic diverticulosis without diverticulitis. The appendix is normal. IMPRESSION: 1. Small hiatal hernia. 2. No evidence of appendicitis. 3. No evidence of high grade urinary tract obstruction. 4. Colonic diverticulosis without diverticulitis. POS: OFF
[2019-04-06 19:50] LABS: Lactic Acid 2.4 mmol/L (0.5-2.2)
[2019-04-06] MEDS ORDERED: Promethazine HCl 25 MG/ML VIAL ONE (19:58)
[2019-04-06 20:09] LABS: Troponin I Less than 0.010 ng/mL (< 0.028)
[2019-04-06] MEDS ORDERED: Piperacillin/Tazobactam 3.375 GM in Sodium Chloride 0.9% 100 ML IVPB SCH ×2 (20:30→23:59)
[2019-04-06] MEDS: Sodium Chloride 0.9% 1,000 ML IV SCH (20:55)
[2019-04-06] MEDS ORDERED: hydrALAZINE 20 MG/ML VIAL SLOW IVP PRN (21:04)
[2019-04-06 21:05] VITALS: BMI 30.4
[2019-04-06] MEDS: HumaLOG 300 UNITS/3 ML VIAL SC PRN (21:18)
[2019-04-06] MEDS: Heparin 5,000 UNITS/ML VIAL SC SCH (21:18)
[2019-04-06] MEDS: Acetaminophen 325 MG TAB PO PRN (22:53)
--- NOTE | 2019-04-06 23:16 | CON ---
DATE OF CONSULTATION: 04/06/2019 REQUESTING PHYSICIAN: Dr. France. HISTORY OF PRESENT ILLNESS: This is a 78-year-old woman, [place]an-speaking only with history of type 2 diabetes mellitus, on insulin. The patient was brought to the emergency department today accompanied by her daughter who is also [place] speaking. There is another close family friend at bedside who provided interpretation. The patient's daughter reported mom apparently was feeling some malaise earlier in the day, being quite sleepy and slow to respond. She then checked her blood sugar at that time, which was above 500. She administered 10 units of regular insulin and the patient was brought to the emergency department. Upon evaluation in the emergency department, she remained somewhat somnolent. Her workup at the time included CT angiography of the neck and head, which excluded cerebrovascular accident. In the interim, the patient has developed abdominal pain, which is vague. Laboratory studies also indicated elevated lactic acid. As a result, I have been asked to evaluate the patient to exclude abdominal pathology as etiology of this patient's current presentation. Although the patient is somnolent, she awakens to the voice and tactile stimulus. She reports left lower quadrant abdominal pain. She denies any fevers or chills. There has not been any change in her bowel habits of late. PAST MEDICAL HISTORY: Pertinent for type 2 diabetes mellitus, degenerative arthritic disease, and essential hypertension. PAST SURGICAL HISTORY: Pertinent for cholecystectomy. SOCIAL HISTORY: The patient apparently smokes about 5 cigarettes per day. She lives at home with her family. She denies any ethanol or illicit drug abuse. FAMILY HISTORY: Noncontributory for this patient's age. PRE-HOSPITAL MEDICATIONS: Includes: 1. Amlodipine 10 mg p.o. daily. 2. Lantus insulin 10 units subcutaneously b.i.d. 3. Losartan 100 mg p.o. daily. 4. Remeron 15 mg p.o. at bedtime p.r.n. ALLERGIES: THE PATIENT HAS NO KNOWN DRUG ALLERGIES. REVIEW OF SYSTEMS: Ten point review of systems essentially unremarkable except as stated in past medical history and chief complaint. PHYSICAL EXAMINATION: GENERAL: This reveals a 78-year-old normally developed woman who is somnolent, but arousable, otherwise appears to be in no acute distress at time of my evaluation. VITAL SIGNS: Include blood pressure 161/81, pulse 78, respiratory rate is 26, temperature is 97.5 degrees Fahrenheit, oxygen saturation is 99% on room air. HEENT: Reveals normocephalic and atraumatic. Pupils are equal, round, reactive to light and accommodation. NECK: She has no jugular venous distention noted. HEART: Reveals regular rate and rhythm. No murmurs or gallops auscultated. LUNGS: Clear to auscultation bilaterally. Her breathing is regular and nonlabored. ABDOMEN: Soft and obese with left lower quadrant tenderness to palpation. She has no rebound tenderness present. Liver and spleen otherwise nonpalpable below costal margin. EXTREMITIES: Reveal 2+ radial and pedal pulses bilaterally. No ankle edema is present. NEUROLOGIC: Reveals no focal deficits present. LABORATORY FINDINGS: CBC with 9000 white blood cells, hemoglobin and hematocrit 9.6 and 28.5 respectively. Platelet count is 383,000. Metabolic profile; sodium 138, potassium 4.4, chloride is 108, bicarb is 21, BUN is 17, creatinine is 1.37, glucose 307, lactic acid is 2.9. Serum osmolality is 310, AST and ALT are 11 and less than 7 respectively. Serum lipase is slightly elevated at 177 units/liter. IMAGING: I have personally reviewed the noncontrast CT scan of the abdomen and pelvis, which reveals a small hiatal hernia, diverticulosis coli with no radiographic evidence of diverticulitis. There is no pneumoperitoneum or significant free fluid noted. IMPRESSIONS: 1. Left lower quadrant abdominal pain, likely secondary to acute diverticulitis versus ischemic colitis. 2. Acute lactic acidosis. 3. Mild hyperosmolar hyperglycemic state. RECOMMENDATIONS: There is no acute surgical indication for this patient at this time. Recommend continuing with current IV resuscitation with broad-spectrum antibiotic therapy. Obtain a repeat CT scan of the abdomen and pelvis with p.o. and IV contrast as soon as it is safe to re-dose the patient with IV contrast. This study will allow us to definitively exclude ischemic colitis. Thank you again, Dr. France for allowing me the opportunity to participate in the care of this patient whose course I will continue to follow along with you and make further recommendations as necessary. Job ID: [id number]
[2019-04-06 23:35] LABS: Lactic Acid 1.4 mmol/L (0.5-2.2)
[2019-04-06 23:50] LABS: Troponin I Less than 0.010 ng/mL (< 0.028)
--- NOTE | 2019-04-07 02:52 | HP ---
CHIEF COMPLAINT: Generalized weakness. HISTORY OF PRESENT ILLNESS: Patient is a 78-year-old female with history of hypertension, diabetes, and arthritis who presents to the hospital with complaints of generalized weakness x1 day. Patient is Mongolian speaking. Patient's family member is at the bedside for translation. Per the patient's daughter who lives with the patient states that she has been doing well. She is normally ambulatory, however, this morning when she woke up, she was feeling well initially, however, as the day progressed, she started having some generalized weakness and started telling her daughter she was not feeling well at all. She did tolerate a small bit of food, however, did not have any nausea at home. At this time, her weakness progressed dramatically, so her daughter checked her sugars, which was elevated. She also checked her blood pressure which was elevated. At this time, she was assisted to the car and brought into the hospital for further evaluation. In the ER, she was noted to have significantly elevated blood pressure up high in the 242/98. At this time, she was very altered and she was started on a Cardene drip. She had a CT brain, which was negative. She had a CTA which was negative. At this point, there were some thoughts of possible tPA her. However, she became more arousable and was able to communicate. The patient's blood pressure improved. However, upon my evaluation, she started having significant amount of abdominal pain and prior to my evaluation, she had 3 or 4 episodes of nausea and vomiting. Patient's daughter denies any sick contacts, any diarrhea, any fevers or chills at home. PAST MEDICAL HISTORY: Patient has a history of high blood pressure. She has a history of diabetes, arthritis, and obesity. PAST SURGICAL HISTORY: She has had a cholecystectomy. PSYCH HISTORY: She has depression. REVIEW OF SYSTEMS: All negative, except for the ones mentioned above in the HPI. SOCIAL HISTORY: No alcohol use. No drug use. She does continue to smoke 3 to 4 cigarettes a day. She is a full code. I did talk this with her daughter. ALLERGIES: SHE HAS NO KNOWN DRUG ALLERGIES. MEDICATIONS: 1. She is on losartan 100 mg daily. 2. Amlodipine 10 mg one p.o. daily. 3. Mirtazapine 15 mg one p.o. daily. PHYSICAL EXAMINATION: VITAL SIGNS: Are as of the following; temperature of 97.8, respirations were 22, /82, and oxygenation 95% on room air. GENERAL: She is awake, alert, and oriented to self and family member. She is fairly tachypneic and appears very ill. CV: S1 and S2 present. Non-tachycardic. LUNGS: Clear to auscultation. No rhonchi or wheezes noted. ABDOMEN: Soft. Bowel sounds are present x2. She does have significant pain upon tenderness to left lower quadrant and epigastric and right upper quadrant on palpation. EXTREMITIES: She has trace pitting edema. NEUROVASCULAR: No focal deficits noted. She is moving all extremities. SKIN: No cuts, lesions, or bruises noted. LABORATORY RESULTS: As of the following: She has a WBCs of 9.0, hemoglobin of 9.6, hematocrit of 28.5, and platelets of 283. Lactic acid initially was 2.9. Her sodium was 138, potassium of 4.4, BUN of 17, creatinine of 1.37, and her glucose was 307. AST and ALT were normal. Her lipase was 177. BNP was 82. Troponin x1 was negative. She did have as I mentioned CTA which was negative. She had a CT of abdomen and pelvis, which did not show any acute abnormalities. This was noncontrast. ASSESSMENT AND PLAN: Patient is a 78-year-old female who presents to the hospital with complaints of generalized weakness. 1. Hypertensive emergency. Patient initially presented with significantly elevated blood pressure. She was very altered per the ER physician. After starting her on the Cardene drip, she improved dramatically. She is currently still on the Cardene drip. We will continue to monitor her. She is more awake and alert. We will get an MRI of the brain and Neurology has been consulted for possible stroke. CTA negative. CT brain negative. 2. Abdominal pain. Possible diverticulitis or versus ischemia. Her lactic acid was elevated, which, however, has trended down. She has been hydrated. I have started her on some broad-spectrum antibiotics. I did call Surgery to come evaluate her at bedside for possible surgical abdomen. Also, the veterinary anatomist has been notified. 3. Lactic acidosis. This could be secondary to her underlying sepsis. We will continue to monitor. 4. Respiratory alkalosis. Patient is very tachypneic. We will continue to monitor. This could be most likely secondary to her underlying sepsis. 5. Possible sepsis. Unclear at this time. I have talked with the surgeon. We will order a CT of abdomen and pelvis with contrast. 6. Chronic kidney disease. We will start to hydrate the patient and continue to monitor her. We will hold nephrotoxins. However, she may require a repeat CAT scan with contrast for better visualization of her abdomen to rule out any other etiology given her significant abdominal pain. 7. Diabetes, uncontrolled. We will start the patient on some sliding scale insulin. We will continue to monitor the patient. 8. Deep venous thrombosis prophylaxis. We will put the patient on subcu heparin. Job ID: [id number]
[2019-04-07 03:32] LABS: #Lymphocytes 1.3 thou/uL (1.20-3.40); #Monocytes 0.4 thou/uL (0.11-0.59); #Neutrophils 5.9 thou/uL (1.40-6.50); %Basophils 0.3 % (0.0-1.0); %Eosinophils 0.3 % (0.0-10.0); %Lymphocytes 17.1 % (21.0-51.0); %Monocytes 5.3 % (0.0-10.0); Hemoglobin 8.7 g/dL (12.0-16.0); Mean Corpuscular HGB CONC 33.5 g/dL (32.0-36.0); Mean Corpuscular Hemoglobin 25.8 pg (27.0-31.0); Mean Corpuscular Volume 77.1 fL (78.0-98.0); Mean Platelet Volume 7.6 fL (7.4-10.4); Platelet Count 297 thou/uL (130-400); RBC Distribution Width 14.7 % (11.5-14.5); Red Blood Cell (RBC) Count 3.35 mill/uL (4.20-5.40); White Blood Cell (WBC) Count 7.6 thou/uL (4.8-10.8)
[2019-04-07] MEDS: Piperacillin/Tazobactam 2.25 GM in Sodium Chloride 0.9% 100 ML IVPB SCH ×2 (03:50→07:52)
[2019-04-07 03:54] LABS: ALT (SGPT) 8 U/L (8-55); AST (SGOT) 19 U/L (5-34); Albumin 3.4 g/dL (3.4-4.8); Alkaline Phosphatase 79 U/L (40-110); Anion Gap 14 mmol/L (10-20); BUN (Urea Nitrogen) 15 mg/dL (9.8-20.1); Bilirubin, Total 0.3 mg/dL (0.2-1.2); Calc. Creatinine Clearance 47 mL/min (70-130); Calcium 8.5 mg/dL (7.8-10.44); Carbon Dioxide 19 mmol/L (23-31); Chloride 106 mmol/L (98-107); Estimated GFR-MDRD 49; Globulin 3.3 g/dL (2.4-3.5); Glucose 266 mg/dL (83-110); Potassium 4.2 mmol/L (3.5-5.1); Protein, Total 6.7 g/dL (6.0-8.3); Sodium 135 mmol/L (136-145)
[2019-04-07] MEDS: Ondansetron PF 4 MG/2 ML Vial SLOW IVP PRN ×2 (04:02→12:32)
[2019-04-07] MEDS: HumaLOG 300 UNITS/3 ML VIAL SC PRN ×3 (06:45→21:22)
[2019-04-07] MEDS: Heparin 5,000 UNITS/ML VIAL SC SCH ×3 (07:54→21:14)
[2019-04-07] MEDS ORDERED: FLU VACC TS2019-20(65YR UP)/PF 180 MCG/0.5 ML SYRINGE IM ONE (09:00)
[2019-04-07 09:32] LABS: Free T4 (Free Thyroxine) 1.85 ng/dL (0.70-1.48); Thyroid Stimulating Hormone 1.1711 uIU/mL (0.35-4.94)
--- NOTE | 2019-04-07 11:16 | CON ---
DATE OF CONSULTATION: HISTORY OF PRESENT ILLNESS: A 78-year-old female, who speaks no Faroese. There are 2 daughters at the bedside, who gave adequate history, but it appears that she had her lunch yesterday 12 p.m. At 2 p.m., she started not feeling well. Her blood sugar was checked, which was elevated apparently in the 500 range. Her blood pressure is elevated, so she was then brought to the ER. At the time of arrival, the blood pressure was 227/105, respirations 15, pulse 76, saturations 97% on room air, temperature 97, this was at 1441 hours. Two hours after her symptoms started. in the ER apparently, there was some abdominal pain and diagnosis was made. She has then had extensive workup done. CT head, chest x-ray, CT abdomen, angiogram of the neck all have been so far unremarkable. This morning in the ICU, she is awake, responsive, somewhat lethargic. An MRI has been ordered by primary care physician. Daughter states she smokes 5 cigarettes a day. She lives at home with her daughter. No drug abuse or substance abuse. PAST MEDICAL HISTORY: Diabetes and hypertension. She has been here several times in the hospital. Recently discharged with a baseline diagnosis of chest pain, diabetes, renal failure, hypertension, tobacco abuse, COPD. MEDICATIONS: Otherwise home medication includes, 1. Remeron 15. 2. Cozaar 100. 3. 70/30 insulin 10 units twice a day. 4. Amlodipine 10. She is now on nicardipine drip. PAST SURGICAL HISTORY: Otherwise as outlined includes cholecystectomy. REVIEW OF SYSTEMS: Otherwise unremarkable. PHYSICAL EXAMINATION: GENERAL: She is in no distress. VITAL SIGNS: Saturations 100% room air, blood pressure 146/77, pulse rate of 18. CHEST: No wheezing or crackles. CARDIAC: Normal S1 No gallops. ABDOMEN: No masses. NEUROLOGICAL: It is noted she speaks only Arabic, but with the help of production corrugator, she was appropriate. LABORATORY DATA: H and H are low 18 and 25, platelet count is normal. Blood sugar 344. Creatinine is normal, sodium 135. Thyroid function normal. ASSESSMENT: Metabolic encephalopathy, diabetes, hypertension, tobacco abuse, chronic obstructive pulmonary disease. Pulmonary Critical Care will follow in the ICU. At this stage, I have nothing additional to offer. I would restart her home diabetic medications, blood pressure medication. PT, supportive care. Input from Neurology. There was a concern regarding an MRI. Consultation note, 70 minutes, 50% direct patient care. Job ID: [id number]
--- NOTE | 2019-04-07 11:25 | MRI ---
MRI Brain WO Con HISTORY: Altered mental status. COMPARISON: CT examination done yesterday. FINDINGS: There is generalized ventricular and sulcal prominence. Areas of T2 and flair hyperintensit y consistent with some chronic white matter change. No hemorrhage. No evidence of acute infarct on the diffusion-weighted sequence. No intra or extra-axial masses. The pituitary region is normal. The mastoid air cells are clear. There appears be a partially visualized retention cyst in the left m axillary sinus. IMPRESSION: No acute intracranial abnormalities.
--- NOTE | 2019-04-07 13:58 | PDOC.HOSPP ---
- Subjective Encounter Date: 04/07/19 Encounter Time: 13:56 Subjective: Ms. Qureshi was seen today in follow-up of generalized weakness, and not feeling well. She says she feels better today. The nausea has improved. She wants to eat something. She does admit to a cough productive of white sputum over the past 2 weeks. Her daughter says they brought her in the hospital , due to her blood pressure ad blood glucose was" high" and that she was " not feeling well". There was no fever. - Objective Vital Signs & Weight: Vital Signs (12 hours) Temp Pulse Pulse Ox 04/07/19 08:00 100 04/07/19 07:00 98.1 F 04/07/19 04:00 98.1 F 04/07/19 03:54 70 Weight Weight 156 lb 11.979 oz Most Recent Monitor Data Heart Rate from ECG 70 NIBP 164/60 NIBP BP-Mean 94 Respiration from ECG 27 SpO2 100 I&O: 04/06/19 04/07/19 04/08/19 06:59 06:59 06:59 Intake Total 754 Output Total 1300 700 Balance -546 -700 Result Diagrams: 04/07/19 03:12 04/07/19 03:12 Additional Labs: Accuchecks 04/07/19 04/07/19 04/06/19 12:53 06:47 20:27 POC Glucose 260 H 344 H 246 H 04/06/19 16:44 POC Glucose 367 H Hospitalist ROS - Medication Medications: Active Medications Generic Name Dose Route Start Last Admin Trade Name Freq PRN Reason Stop Dose Admin Acetaminophen 650 mg 04/06/19 19:20 04/06/19 22:53 Tylenol PO 650 mg Q4H PRN Administration Headache/Fever/Mild Pain (1-3) Heparin Sodium (Porcine) 5,000 units 04/06/19 21:00 04/07/19 07:54 Heparin SC 5,000 units TID JEB Administration Hydralazine HCl 5 mg 04/06/19 21:04 04/07/19 03:54 Apresoline SLOW IVP 5 mg Q4H PRN Administration Blood Pressure Sodium Chloride 1,000 mls @ 50 mls/hr 04/06/19 19:30 04/06/19 20:55 Normal Saline 0.9% IV 1,000 mls .Q20H JEB Administration Insulin Human Lispro 0 units 04/06/19 19:15 04/07/19 12:50 Humalog SC 4 unit .MILD SLIDING SCALE PRN Administration Mild Correctional Scale Ondansetron HCl 4 mg 04/07/19 01:05 04/07/19 12:32 Zofran SLOW IVP 4 mg Q6H PRN Administration Nausea Sodium Chloride 10 ml 04/06/19 21:00 04/07/19 09:59 Flush - Normal Saline IVF Not Given Q12HR JEB - Exam Eye: PERRL, anicteric sclera Heart: RRR, no murmur, no gallops, no rubs, normal peripheral pulses Respiratory: CTAB (+ occasional rhonchi), no rales, normal chest expansion, no tachypnea, normal percussion Gastrointestinal: soft, non-tender, non-distended, normal bowel sounds, no palpable masses, no hepatomegaly Extremities: no cyanosis, no clubbing, no edema Skin: normal turgor, no lesions, no rashes Hosp A/P (1) Acute bronchitis Code(s): J20.9 - ACUTE BRONCHITIS, UNSPECIFIED Status: Acute (2) CKD (chronic kidney disease), stage III Status: Chronic (3) Diabetes type 2, controlled Code(s): E11.9 - TYPE 2 DIABETES MELLITUS WITHOUT COMPLICATIONS Status: Chronic Qualifiers: Diabetes mellitus group home insulin use: without terminal gauger use Diabetes mellitus complication status: with kidney complications Diabetes mellitus complication detail: with chronic kidney disease Chronic kidney disease stage : stage 3 (moderate) Qualified Code(s): E11.22 - Type 2 diabetes mellitus with diabetic chronic kidney disease (4) Hypertension Code(s): I10 - ESSENTIAL (PRIMARY) HYPERTENSION Status: Chronic - Plan * Generalized weakness- likely due to bronchitis- will transition her antibiotics to Azithromycin * Abdominal pain- resolved * HTN- blood pressure is a bit elevated- will re-start her home medications and titrate as needed * DM- blood glucose is a bit elevated- will re-start her insulin and titrate it as needed * She appears stable for transfer out of the ICU * Anemia- is microcytic- will check iron studies and a stool for occult blood, * PT/OT
--- NOTE | 2019-04-07 14:20 | CON ---
DATE OF CONSULTATION: 04/07/2019 CONSULTING PHYSICIAN: Hospitalist Service. IMPRESSION: Probable stomach virus. PLAN: Call me if anything rules in positive on her MRI. HISTORY OF PRESENT ILLNESS: Ms. Qureshi is a 78-year-old female, who had been feeling poorly. She was complaining of abdominal pain with nausea and vomiting yesterday. She felt generally weak. She came to the emergency room and was noted to be hypertensive. She is put in the ICU on a Cardene drip. Her blood pressure has come down today. She is complaining of being hungry, but denies any abdominal pain, headache, or focal symptoms. She has not had any further vomiting today. She has been n.p.o. since admission. CT and CT angiogram were both unremarkable. PAST MEDICAL HISTORY: Hypertension. ALLERGIES: NONE REPORTED. SOCIAL HISTORY: No tobacco or alcohol. FAMILY HISTORY: Noncontributory. REVIEW OF SYSTEMS: Ten-system review of systems is otherwise negative. PHYSICAL EXAMINATION: VITAL SIGNS: Blood pressure 142/61, pulse 82 and sinus rhythm, respirations 25, and saturations 100%. HEENT: Pupils are equal and reactive. Conjunctivae are clear. Oropharynx clear. NECK: Supple. No lymphadenopathy. EXTREMITIES: No cyanosis, clubbing, or edema. NEUROLOGIC: She was alert and cooperative. Her speech is fluent and clear. She follows commands appropriately. She had no focal deficits. She had no abnormal movements. Gait was not tested. Sensation was intact to touch. Plantar responses were downgoing. SUMMARY: This elderly lady came in with abdominal pain, nausea and vomiting and some secondary hypertension. I do not see any neurologic issues. Job ID: [id number]
[2019-04-07 15:14] LABS: Iron 23 ug/dL (50-170); Iron Binding Capacity, Total 379 mcg/dL (265-497)
[2019-04-07] MEDS ORDERED: HumuLIN 70/30 (300 UNITS/3 ML VIAL) SC SCH (16:30)
[2019-04-07] MEDS: HumuLIN 70/30 (300 UNITS/3 ML VIAL) SC SCH (17:03)
[2019-04-07] MEDS: Sodium Chloride 0.9% 1,000 ML IV SCH (17:04)
--- NOTE | 2019-04-07 18:04 | PRG ---
DATE OF SERVICE: 04/07/2019 SUBJECTIVE: Ms. Qureshi is a 78-year-old woman, who was admitted yesterday with significant mental status change, hyperglycemia, and vague left lower quadrant abdominal pain. This morning, she is more awake and alert. She reports no abdominal pain. Urinary output is adequate for the patient's age and weight. OBJECTIVE: VITAL SIGNS: Her vital signs this morning includes blood pressure 138/62, pulse is 78, respiratory rate 17, the maximum temperature since this admission is 98.7 degrees Fahrenheit, and oxygen saturation 100% on 3 L by nasal cannula oxygen. ABDOMEN: Soft and nontender to palpation and percussion. She clearly has no peritoneal signs on examination. NEUROLOGIC: Reveals no focal deficits present. LABORATORY FINDINGS: This morning, include a CBC with 7600 white blood cells and hemoglobin and hematocrit 8.7 and 25.9 respectively. Platelet count is 297,000. Metabolic profile; sodium 135, potassium 4.2, chloride is 106, bicarb is 19, BUN is 15, creatinine is 1.09, and glucose is 266. Lactic acid had normalized by 2200 hours yesterday at 1.4. IMPRESSION: 1. Resolved abdominal pain. 2. Resolving acute hyperglycemia. PLAN: 1. There is no further surgical indication for this patient at this time. 2. Remainder of medical management is deferred to the primary service. 3. General Surgery will sign off this patient's case and be available to re-evaluate the patient on demand. Job ID: [id number]
[2019-04-07] MEDS: Acetaminophen 325 MG TAB PO PRN (19:19)
[2019-04-07] MEDS ORDERED: Mirtazapine 15 MG TAB PO SCH (21:00)
[2019-04-08] MEDS: Acetaminophen 325 MG TAB PO PRN ×2 (06:18→11:59)
[2019-04-08] MEDS: Sodium Chloride 0.9% 1,000 ML IV SCH ×2 (06:22→12:59)
[2019-04-08 06:54] LABS: ALT (SGPT) 7 U/L (8-55); AST (SGOT) 17 U/L (5-34); Albumin 3.3 g/dL (3.4-4.8); Alkaline Phosphatase 74 U/L (40-110); Anion Gap 11 mmol/L (10-20); BUN (Urea Nitrogen) 18 mg/dL (9.8-20.1); Bilirubin, Total 0.4 mg/dL (0.2-1.2); Calc. Creatinine Clearance 37 mL/min (70-130); Calcium 8.5 mg/dL (7.8-10.44); Carbon Dioxide 24 mmol/L (23-31); Chloride 111 mmol/L (98-107); Estimated GFR-MDRD 42; Globulin 3.2 g/dL (2.4-3.5); Glucose 121 mg/dL (83-110); Potassium 3.5 mmol/L (3.5-5.1); Protein, Total 6.5 g/dL (6.0-8.3); Sodium 142 mmol/L (136-145)
[2019-04-08 07:52] VITALS: BP 149/77; TEMP 98.6
[2019-04-08] MEDS ORDERED: Amlodipine 10 MG TAB PO SCH (09:00)
[2019-04-08] MEDS ORDERED: Azithromycin 200 MG/5 ML Oral Suspension PO SCH (09:00)
[2019-04-08] MEDS ORDERED: Losartan 25 MG TAB PO SCH (09:00)
[2019-04-08] MEDS: Heparin 5,000 UNITS/ML VIAL SC SCH ×2 (09:19→15:21)
[2019-04-08] MEDS: HumuLIN 70/30 (300 UNITS/3 ML VIAL) SC SCH ×2 (09:21→16:19)
[2019-04-08] MEDS: HumaLOG 300 UNITS/3 ML VIAL SC PRN ×2 (11:55→17:11)
--- NOTE | 2019-04-08 13:25 | PRG ---
DATE OF SERVICE: 04/08/2019 SUBJECTIVE: This morning, she is better. No pain. No shortness breath. No discomfort. OBJECTIVE: VITAL SIGNS: Temperature 98, pulse 70, respirations 16, saturations are 96 on room air, blood pressure 149/77. CHEST: No wheezing, crackles. CARDIAC: Normal S1, S2. No gallops. ABDOMEN: No masses. Creatinine 1.23. Liver function is normal. IMPRESSION: 1. Abdominal pain, resolved. 2. Hypertension. 3. Diabetes. 4. Pulmonary holliday, see no pulmonary issues at this stage. Disposition as per primary care physician. Pulmonary will follow at a distance. Job ID: [id number]
--- NOTE | 2019-04-08 13:48 | PDOC.HOSPP ---
- Subjective Encounter Date: 04/08/19 Encounter Time: 13:44 Subjective: Ms. Qureshi was seen today in follow-up. She says she still feels very weak. She has barely been able to get up and go to the bathroom. - Objective Vital Signs & Weight: Vital Signs (12 hours) Temp Pulse Resp BP Pulse Ox 04/08/19 09:21 70 04/08/19 08:00 96 04/08/19 07:51 98.6 F 70 16 149/77 H 96 04/08/19 05:17 98.0 F 81 16 158/75 H 92 L Weight Weight 138 lb Most Recent Monitor Data Heart Rate from ECG 70 NIBP 135/65 NIBP BP-Mean 88 Respiration from ECG 27 SpO2 98 I&O: 04/07/19 04/08/19 04/09/19 06:59 06:59 06:59 Intake Total 754 450 480 Output Total 1300 950 Balance -546 -500 480 Result Diagrams: 04/07/19 03:12 04/08/19 06:19 Additional Labs: Accuchecks 04/08/19 04/08/19 04/07/19 11:56 04:42 19:25 POC Glucose 341 H 86 183 H 04/07/19 17:06 POC Glucose 211 H Hospitalist ROS - Medication Medications: Active Medications Generic Name Dose Route Start Last Admin Trade Name Freq PRN Reason Stop Dose Admin Acetaminophen 650 mg 04/06/19 19:20 04/08/19 11:59 Tylenol PO 650 mg Q4H PRN Administration Headache/Fever/Mild Pain (1-3) Amlodipine Besylate 10 mg 04/08/19 09:00 04/08/19 09:21 Norvasc PO 10 mg DAILY JEB Administration Azithromycin 500 mg 04/08/19 09:00 04/08/19 09:21 Zithromax PO 500 mg DAILY JEB Administration Heparin Sodium (Porcine) 5,000 units 04/06/19 21:00 04/08/19 09:19 Heparin SC 5,000 units TID JEB Administration Hydralazine HCl 5 mg 04/06/19 21:04 04/07/19 03:54 Apresoline SLOW IVP 5 mg Q4H PRN Administration Blood Pressure Sodium Chloride 1,000 mls @ 50 mls/hr 04/06/19 19:30 04/08/19 12:59 Normal Saline 0.9% IV Not Given .Q20H JEB Insulin Human Isoph/Insulin Regular 15 units 04/07/19 16:30 04/08/19 09:21 Humulin 70/30 SC Not Given BID-AC JEB Insulin Human Lispro 0 units 04/06/19 19:15 04/08/19 11:55 Humalog SC 5 unit .MILD SLIDING SCALE PRN Administration Mild Correctional Scale Losartan Potassium 100 mg 04/08/19 09:00 04/08/19 09:20 Cozaar PO 100 mg DAILY JEB Administration Mirtazapine 15 mg 04/07/19 21:00 04/07/19 21:14 Remeron PO 15 mg HS JEB Administration Ondansetron HCl 4 mg 04/07/19 01:05 04/07/19 12:32 Zofran SLOW IVP 4 mg Q6H PRN Administration Nausea Sodium Chloride 10 ml 04/06/19 21:00 04/08/19 09:22 Flush - Normal Saline IVF Not Given Q12HR JEB - Exam Eye: PERRL Respiratory: CTAB, no wheezes, no rales, no ronchi, normal chest expansion, no tachypnea, normal percussion Gastrointestinal: soft, non-tender, non-distended, normal bowel sounds, no palpable masses, no hepatomegaly Extremities: no cyanosis Hosp A/P (1) Acute bronchitis Code(s): J20.9 - ACUTE BRONCHITIS, UNSPECIFIED Status: Acute (2) CKD (chronic kidney disease), stage III Status: Chronic (3) Diabetes type 2, controlled Code(s): E11.9 - TYPE 2 DIABETES MELLITUS WITHOUT COMPLICATIONS Status: Chronic Qualifiers: Diabetes mellitus half-way insulin use: without roasterman use Diabetes mellitus complication status: with kidney complications Diabetes mellitus complication detail: with chronic kidney disease Chronic kidney disease stage : stage 3 (moderate) Qualified Code(s): E11.22 - Type 2 diabetes mellitus with diabetic chronic kidney disease; N18.3 - Chronic kidney disease, stage 3 ( moderate) (4) Hypertension Code(s): I10 - ESSENTIAL (PRIMARY) HYPERTENSION Status: Chronic - Plan * Generalized weakness- continue Azithromycin * HTN- blood pressure is better- she is currently on her home medications * DM- blood glucose is a bit elevated- the dose of insulin has been increased a little * Possible depression- she appears depressed, with flat affect. He daughter tells me her last yesr around the same time. - will try Zoloft * Medically she can be transitioned home. However will get her up to see if she can ambulate- if not, then will consider either jail or home with home PT/OT
--- NOTE | 2019-04-09 02:24 | DIS ---
DATE OF ADMISSION: 04/06/2019 DATE OF DISCHARGE: 04/08/2019 PRIMARY CARE PHYSICIAN: Dr. Linda Hamm. DISCHARGE DISPOSITION: Home. DISCHARGE DIAGNOSES: 1. Hypertensive urgency. 2. Diabetes mellitus, uncontrolled. 3. Generalized weakness. 4. Depression. 5. Obesity. DISCHARGE MEDICATIONS: Include; 1. Zoloft 50 mg at bedtime. 2. Losartan 100 mg daily. 3. Apresoline 25 mg t.i.d., only as needed for systolic blood pressure greater than 170. 4. Humulin 70/30 was increased to 15 units twice daily. 5. Continue Norvasc 10 mg daily and Remeron 15 mg at bedtime. IMAGING: Done during the hospital stay. The patient had a CT angiogram of the neck and there was no evidence of high-grade stenosis. The patient had a CT scan of the brain in which there was no evidence of any acute intracranial process. She also had an MRI of the brain showing no acute intracranial abnormalities. The patient had a CT scan of the abdomen and pelvis showing a small hiatal hernia. There was no evidence of appendicitis. No evidence of high-grade urinary obstruction. There was some colonic diverticulosis, but without diverticulitis. Patient had urine and blood cultures, which were negative. Influenza screen was also negative. CODE STATUS: Full code. ALLERGIES: NO KNOWN DRUG ALLERGIES. HOSPITAL COURSE: Ms. Qureshi is a very pleasant 78-year-old female, who was brought to the hospital after she was noted to feel extremely weak and her daughter was concerned because her blood pressure was elevated as well as her blood sugar and the patient said that she felt "bad." She was brought into the hospital and it was noted that her blood pressure was extremely high at 240/98. She was placed in the ICU on a Cardene drip. This was quickly titrated off and placed back on her regular home medications. Her blood pressure actually remained controlled on her home medications. It is unclear what caused a spike in the blood pressure. There was concern for possible stroke and for this reason, the CT angiogram and MRI were done. These were essentially negative. She was also seen by Cardiology as well as Pulmonology during her hospital stay and General Surgery due to complaints of some abdominal pain. CT scan of the abdomen was essentially negative and her lab work was unremarkable. For this reason, she was transitioned out of the ICU and watched another day on the medical floor. Her dose of insulin was increased from 10 units to 15 units with better glycemic control and hydralazine will be added at discharge only as needed if her blood pressure were to spike again. She did give some symptoms of depression with a flat affect and basically not feeling like doing much. Her daughter expressed that the patient's had about a year ago around the same time. For this reason, we will be adding some Zoloft to her regimen and she is to have close outpatient followup with Dr. Hamm to discuss this further. The patient will be discharged home in stable condition on 04/08/2019. Job ID: [id number]
--- NOTE | 2019-04-09 23:58 | PQF ---
[employer] Quality Consultant Crystal Reports Winform [id number] JHONNY COLES MD DAVID IQBAL [id number] CLINICAL DOCUMENTATION CLARIFICATION FORM: POST DISCHARGE Addendum to original discharge summary date: ____ Late entry note date: __ DATE: 04/09/19 ATTN: Jhonny Coles Please exercise your independent, professional judgment in responding to the clarification form. Clinical indicators are provided on the bottom of this form for your review Please check appropriate box(es): [ XX ] Sepsis due to: (Pna, UTI, gangrenous gall bladder, etc.) ___Bronchitis___ [ ] Localized infection without sepsis [ ] Other diagnosis [ ] Unable to determine In addition, please specify: Present on Admission (POA): [ X ] Yes [ ] No [ ] Unable to determine For continuity of documentation, please document condition throughout progress notes and discharge summary. Thank You. CLINICAL INDICATORS - SIGNS / SYMPTOMS / LABS H and P pg.1- generalized weakness H and P pg.2- VS: temp 97.8, RR were 22, H and P pg.3 lactic acidosis. This could be secondary to her underlying sepsis H and P pg.3 -Respiratory alkalosis. Patient is very tachypneic H and P pg.3- Sepsis unclear at this time Hospitalist PN 04/07 pg.4- Generalized weakness likely due to bronchitis DS pg.2- Noted that her blood pressure was extremely high at 240/98 RISK FACTORS 78 years old- H and P pg.1 HTN- Consult Dr. Frias pg.1 DM- Consult Dr. Frias pg.1 COPD_ Consult Dr. Frias pg.1 Metabolic encephalopathy-Consult Dr. Frias pg.1 Acute Bronchitis- Hospitalist PN TREATMENTS: Pulmonary Consult-Dr. Frias 285 Chest X ray IV fluids- MAR IV Antibiotics- MAR (This form is maintained as a part of the permanent medical record) 2014 [employer]. All Rights Reserved [email or web address]
--- NOTE | 2019-04-10 00:04 | PQF ---
S[employer] Mill Manager Crystal Reports Winform Viewer [id number] JHONNY COLES MD DAVID IQBAL [id number] CLINICAL DOCUMENTATION CLARIFICATION FORM: POST DISCHARGE Addendum to original discharge summary date: ____ Late entry note date: __ DATE: 04/09/19 ATTN: Jhonny Coles Please exercise your independent, professional judgment in responding to the clarification form. Clinical indicators are provided on the bottom of this form for your review Can you please further clarify if acute metabolic encephalopathy is ruled in or ruled out? Metabolic encephalopathy [ X] Ruled in diagnosis [ X ] Continue to treat [ ] Resolved [ ] Ruled out diagnosis [ ] Cannot rule out diagnosis [ ] Other diagnosis [ ] Unable to determine In addition, please specify: Present on Admission (POA): [X ] Yes [ ] No [ ] Unable to determine For continuity of documentation, please document condition throughout progress notes and discharge summary. Thank You. CLINICAL INDICATORS - SIGNS / SYMPTOMS / LABS Consult Dr. Frias pg.1- "Metabolic encephalopathy" H and P pg.1- generalized weakness H and P pg.2- VS: temp 97.8, RR were 22, H and P pg.3 lactic acidosis. This could be secondary to her underlying sepsis H and P pg.3 -Respiratory alkalosis. Patient is very tachypneic H and P pg.3- Sepsis unclear at this time Hospitalist PN 04/07 pg.4- Generalized weakness likely due to bronchitis DS pg.2- Noted that her blood pressure was extremely high at 240/98 RISK FACTORS 78 years old- H and P pg.1 HTN- Consult Dr. Frias pg.1 DM- Consult Dr. Frias pg.1 COPD_ Consult Dr. Frias pg.1 Hypertensive Urgency- DS pg.[address] TREAT[address] Consult Dr. Ponce 04/07 CT Brain 04/06 Brain MRI 04/07 Pulmonary Consult-Dr. Frias 285 Chest X ray IV fluids- MAR IV Antibiotics- MAR (This form is maintained as a part of the permanent medical record) 2014 [employer] All Rights Reserved [email or web address]
--- NOTE | 2019-04-14 16:37 | EKG ---
Test Reason : Blood Pressure : / mmHG Vent. Rate : 070 BPM Atrial Rate : 070 BPM P-R Int : 182 ms QRS Dur : 094 ms QT Int : 404 ms P-R-T Axes : 034 -02 043 degrees QTc Int : 436 ms Normal sinus rhythm Normal ECG Confirmed by MCKENZIE HAYWARD ([id number]), digital editor RONAK CLARK ([id number]) on 04/14/2019 4:37:06 PM Referred By: Confirmed By:MCKENZIE HAYWARD
== END 2019-04-08 17:41 | disposition home or self-care (01) | DRG 871 ==
LOC: ERS 16:38 → CCU 20:12 → T4-B 04-07 17:51
PROVIDERS: ADMIT Internal Medicine; ATTEND Internal Medicine
DX: A41.9 Sepsis, unspecified organism (principal); G93.41 Metabolic encephalopathy; I16.1 Hypertensive emergency; E87.4 Mixed disorder of acid-base balance; J44.0 Chronic obstructive pulmonary disease with (acute) lower respiratory infection; E87.3 Alkalosis; E87.2 Acidosis; E11.65 Type 2 diabetes mellitus with hyperglycemia; M19.90 Unspecified osteoarthritis, unspecified site; F17.210 Nicotine dependence, cigarettes, uncomplicated; I12.9 Hypertensive chronic kidney disease with stage 1 through stage 4 chronic kidney disease, or unspecified chronic kidney disease; N18.3 Chronic kidney disease, stage 3 (moderate); J20.9 Acute bronchitis, unspecified; F32.9 Major depressive disorder, single episode, unspecified; E66.9 Obesity, unspecified; E11.22 Type 2 diabetes mellitus with diabetic chronic kidney disease; K57.30 Diverticulosis of large intestine without perforation or abscess without bleeding; D50.9 Iron deficiency anemia, unspecified; Z79.899 Other long term (current) drug therapy; Z90.49 Acquired absence of other specified parts of digestive tract; Z68.27 Body mass index [BMI] 27.0-27.9, adult; Z79.4 Long term (current) use of insulin
CPT/HCPCS: 36415; 36416; 51701; 70450; 70496; 70498; 70551; 71045; 74176; 80053; 80306; 81003; 82010; 82330; 82550; 82728; 82803; 83540; 83550; 83605; 83690; 83880; 83930; 84439; 84443; 84484; 85025; 85610; 85730; 86850; 86900; 86901; 87040; 87086; 87804; 93005; 96365; 96366; 96375; 99292; A4353; J0360; J1644; J1815; J2405; J2543; J2550; J3490; J7050; Q9967

== ENCOUNTER 2019-06-19 00:16 | Emergency (ER) | payer MEDICAID, SELFPAY ==
[2019-06-19 01:02] LABS: #Basophils 0.2 thou/uL (0.0-0.2); #Eosinphils 0.5 thou/uL (0.0-0.7); #Lymphocytes 4.7 thou/uL (1.20-3.40); #Monocytes 0.8 thou/uL (0.11-0.59); #Neutrophils 4.6 thou/uL (1.40-6.50); %Basophils 1.6 % (0.0-1.0); %Eosinophils 4.7 % (0.0-10.0); %Lymphocytes 43.8 % (21.0-51.0); %Monocytes 7.6 % (0.0-10.0); %Neutrophils 42.2 % (42.0-75.0); Mean Corpuscular Hemoglobin 27.6 pg (27.0-31.0); Mean Corpuscular Volume 81.3 fL (78.0-98.0); Mean Platelet Volume 7.4 fL (7.4-10.4); Platelet Count 387 thou/uL (130-400); RBC Distribution Width 17.7 % (11.5-14.5); Red Blood Cell (RBC) Count 4.36 mill/uL (4.20-5.40); White Blood Cell (WBC) Count 10.8 thou/uL (4.8-10.8)
[2019-06-19] MEDS ORDERED: Ketorolac Tromethamine 30 MG/ML VIAL ONE (01:11)
[2019-06-19 01:16] LABS: ALT (SGPT) 10 U/L (8-55); AST (SGOT) 13 U/L (5-34); Albumin 4.3 g/dL (3.4-4.8); Alkaline Phosphatase 98 U/L (40-110); Anion Gap 19 mmol/L (10-20); BUN (Urea Nitrogen) 21 mg/dL (9.8-20.1); Bilirubin, Total 0.2 mg/dL (0.2-1.2); Calc. Creatinine Clearance 0 mL/min (70-130); Calcium 10.1 mg/dL (7.8-10.44); Carbon Dioxide 18 mmol/L (23-31); Chloride 99 mmol/L (98-107); Estimated GFR-MDRD 30; Globulin 3.6 g/dL (2.4-3.5); Glucose 225 mg/dL (83-110); Potassium 3.2 mmol/L (3.5-5.1); Protein, Total 7.9 g/dL (6.0-8.3); Sodium 133 mmol/L (136-145)
== END 2019-06-19 04:02 | disposition home or self-care (01) ==
LOC: ERS 00:16
DX: M79.10 Myalgia, unspecified site (principal); E11.9 Type 2 diabetes mellitus without complications; I10 Essential (primary) hypertension; M19.90 Unspecified osteoarthritis, unspecified site; F32.9 Major depressive disorder, single episode, unspecified; F17.210 Nicotine dependence, cigarettes, uncomplicated
CPT/HCPCS: 80053; 85025; 96361; 96374; J1885

== ENCOUNTER 2019-07-30 17:06 | Emergency (ER) | payer MEDICAID, SELFPAY ==
[2019-07-30 18:15] LABS: #Basophils 0.1 thou/uL (0.0-0.2); #Eosinphils 0.2 thou/uL (0.0-0.7); #Lymphocytes 2.6 thou/uL (1.20-3.40); #Monocytes 0.5 thou/uL (0.11-0.59); #Neutrophils 3.7 thou/uL (1.40-6.50); %Basophils 1.2 % (0.0-1.0); %Eosinophils 3.1 % (0.0-10.0); %Lymphocytes 36.8 % (21.0-51.0); %Monocytes 7.4 % (0.0-10.0); %Neutrophils 51.6 % (42.0-75.0); Hemoglobin 11.7 g/dL (12.0-16.0); Mean Corpuscular HGB CONC 33.9 g/dL (32.0-36.0); Mean Corpuscular Hemoglobin 29.2 pg (27.0-31.0); Mean Corpuscular Volume 85.9 fL (78.0-98.0); Mean Platelet Volume 6.8 fL (7.4-10.4); Platelet Count 342 thou/uL (130-400); RBC Distribution Width 15.3 % (11.5-14.5); Red Blood Cell (RBC) Count 4.01 mill/uL (4.20-5.40); White Blood Cell (WBC) Count 7.2 thou/uL (4.8-10.8)
[2019-07-30] MEDS ORDERED: Ketorolac Tromethamine 30 MG/ML VIAL ONE (18:22)
[2019-07-30] MEDS ORDERED: Fentanyl 100 MCG/2 ML VIAL ONE (18:22)
[2019-07-30] MEDS ORDERED: Ondansetron PF 4 MG/2 ML Vial ONE (18:22)
[2019-07-30 18:43] LABS: ALT (SGPT) 7 U/L (8-55); AST (SGOT) 20 U/L (5-34); Albumin 3.5 g/dL (3.4-4.8); Alkaline Phosphatase 87 U/L (40-110); Anion Gap 13 mmol/L (10-20); BUN (Urea Nitrogen) 21 mg/dL (9.8-20.1); Bilirubin, Total 0.3 mg/dL (0.2-1.2); Calc. Creatinine Clearance 0 mL/min (70-130); Calcium 8.9 mg/dL (7.8-10.44); Carbon Dioxide 21 mmol/L (23-31); Chloride 102 mmol/L (98-107); Estimated GFR-MDRD 31; Globulin 3.2 g/dL (2.4-3.5); Glucose 352 mg/dL (83-110); Potassium 4.3 mmol/L (3.5-5.1); Protein, Total 6.7 g/dL (6.0-8.3); Sodium 132 mmol/L (136-145)
[2019-07-30 19:38] LABS: Bacteria/HPF 3+ HPF (None Seen); Bilirubin Negative (Negative); Blood, Urine Negative (Negative); Clarity Turbid (Clear); Glucose, Urine (Dipstick) Greater than 1000 mg/dL (Negative); Leukocyte 75 Leu/uL (Negative); Nitrite Negative (Negative); Protein, Urine (Dipstick) 20 mg/dL (Neg-Trace); RBC/HPF 0-3 HPF (0-3); Squamous Epithelial None Seen HPF (0-3); Urobilinogen Normal mg/dL (Less than 2); WBC/HPF 21-50 HPF (0-3)
--- NOTE | 2019-07-30 20:03 | CT ---
CT ABDOMEN AND PELVIS WITHOUT CONTRAST STONE PROTOCOL: History: Low back pain Comparison: CT, 04-06-2019 FINDINGS: There is scarring in the lung bases. No significant pericardial fluid. Similar appearance to the hypodensity superior pole of the left kidney. No nephroureterolithiasis or hydroureteronephrosis. No secondary evidence of recent passed stone. Common bile duct measures 11 mm. Mild intrahepatic biliary dilatation. No significant dilatation of t he pancreatic duct. At the pancreatic head the common bile duct is not significantly dilated. Abnormal cystic masses of the adnexa bilaterally. Mild diverticular disease sigmoid colon without act hoa current inflammation. The pancreas is visualized and is normal. The aorta iliac contour is not aneurysmal. Degenerative disc space disease at L2-3 with endplate erosions. The bone marrow appears to be heterog eneous. Numerous small lucencies throughout the medullary cavity of the visualized thoracolumbar spin e. IMPRESSION: 1. No nephroureterolithiasis or hydroureteronephrosis. 2. No secondary evidence of recently passed stone. 3. Abnormal bilateral cystic adnexal masses measuring up to 3.4 cm on the right and 3.8 cm on the lef t. A non-emergent outpatient follow up pelvic ultrasound is recommended. 4. Mild intrahepatic and extrahepatic biliary dilatation. LFT correlation is advised. This is not sig nificantly changed. 5. Heterogeneous appearance of the medullary cavity of the thoracolumbar spine. Recommend correlation for a history of myeloma. If there is none, work up may be beneficial. POS: HOME
[2019-07-30] MEDS ORDERED: cefTRIAXone\\ROCEPHIN 1 GM VIAL ONE (20:23)
== END 2019-07-30 21:17 | disposition home or self-care (01) ==
LOC: ERS 17:06
DX: N83.8 Other noninflammatory disorders of ovary, fallopian tube and broad ligament (principal); N12 Tubulo-interstitial nephritis, not specified as acute or chronic; K86.89 Other specified diseases of pancreas; E11.9 Type 2 diabetes mellitus without complications; I10 Essential (primary) hypertension; F32.9 Major depressive disorder, single episode, unspecified; F17.210 Nicotine dependence, cigarettes, uncomplicated; M19.90 Unspecified osteoarthritis, unspecified site
CPT/HCPCS: 36415; 51701; 74176; 80053; 81003; 81015; 85025; 87077; 87086; 87186; 94760; 96365; 96375; J0696; J1885; J2405; J3010

== ENCOUNTER 2019-07-31 18:30 | Inpatient (IN) | payer MEDICAID, SELFPAY ==
[2019-07-31] MEDS ORDERED: Fentanyl 100 MCG/2 ML VIAL ONE (18:43)
[2019-07-31 19:07] LABS: #Eosinphils 0.2 thou/uL (0.0-0.7); #Lymphocytes 1.4 thou/uL (1.20-3.40); #Monocytes 0.4 thou/uL (0.11-0.59); #Neutrophils 3.6 thou/uL (1.40-6.50); %Basophils 0.4 % (0.0-1.0); %Eosinophils 3.5 % (0.0-10.0); %Lymphocytes 24.3 % (21.0-51.0); %Monocytes 7.7 % (0.0-10.0); %Neutrophils 64.2 % (42.0-75.0); Hemoglobin 12.1 g/dL (12.0-16.0); Mean Corpuscular HGB CONC 34.3 g/dL (32.0-36.0); Mean Corpuscular Hemoglobin 29.5 pg (27.0-31.0); Mean Corpuscular Volume 86.1 fL (78.0-98.0); Mean Platelet Volume 7.2 fL (7.4-10.4); Platelet Count 324 thou/uL (130-400); RBC Distribution Width 14.9 % (11.5-14.5); Red Blood Cell (RBC) Count 4.09 mill/uL (4.20-5.40); White Blood Cell (WBC) Count 5.6 thou/uL (4.8-10.8)
[2019-07-31 19:27] LABS: Base Excess-Venous -3.3 mmol/L (-2.0 to 3.0); Bicarbonate (HCO3v) 21.3 mmol/L (22.0-28.0); CO2 Tension (PvCO2) 35.5 mmHg (40.0-50.0); Calcium, Ionized 1.16 mmol/L (See Comments:); Chloride 101 mmol/L (98-107); Potassium 4.4 mmol/L (3.5-5.1); Sodium 133 mmol/L (138-145); T. Carbon Dioxide 22.4 mmol/L (22.0-28.0); vO2 Saturation-calc 86.8 % (60.0-85.0)
[2019-07-31 19:28] LABS: ALT (SGPT) 378 U/L (8-55); AST (SGOT) 1081 U/L (5-34); Albumin 3.5 g/dL (3.4-4.8); Alkaline Phosphatase 255 U/L (40-110); Anion Gap 16 mmol/L (10-20); BUN (Urea Nitrogen) 19 mg/dL (9.8-20.1); Bilirubin, Total 1.3 mg/dL (0.2-1.2); Calc. Creatinine Clearance 0 mL/min (70-130); Calcium 9.1 mg/dL (7.8-10.44); Carbon Dioxide 19 mmol/L (23-31); Chloride 101 mmol/L (98-107); Estimated GFR-MDRD 35; Globulin 3.9 g/dL (2.4-3.5); Glucose 317 mg/dL (83-110); Potassium 4.7 mmol/L (3.5-5.1); Protein, Total 7.4 g/dL (6.0-8.3); Sodium 131 mmol/L (136-145)
[2019-07-31] MEDS ORDERED: Cefepime 1 GM VIAL ONE (19:40)
--- NOTE | 2019-07-31 19:54 | RAD ---
CHEST ONE VIEW: 07/31/19 HISTORY: Tachypnea. Dyspnea. COMPARISON: 04/06/19. FINDINGS: Cardiac silhouette and pulmonary vasculature are unremarkable. Mediastinum is midline. Eventration of the right hemidiaphragm with superior protrusion of the liver is similar to recent CT. No lobar cons olidation or evidence of pneumothorax. IMPRESSION: No active cardiopulmonary abnormalities are demonstrated. POS: BST
--- NOTE | 2019-07-31 21:22 | CT ---
CT ABDOMEN AND PELVIS WITH IV CONTRAST: 07/31/19 HISTORY: Abdomen pain. Abnormal liver function tests. Chest pain. COMPARISON: 07/30/19 and 04/06/19. FINDINGS: Mild right hemidiaphragm elevation and parenchymal scarring at the right anterolateral lung base is s table. Gallbladder is surgically absent. Distention of the common bile duct up to 1.3 cm is greater t slater normally seen. There is a 1.7 cm cyst at the superior pole of the left kidney. No focal liver abnormalities evident. Spleen is unremarkable. Urinary bladder has a normal appearance. Cysts of each adnexa again demonstrated, measuring up to 3.8 cm on the right and 2.6 cm on the left o n today's study. No evidence of bowel obstruction or inflammation. Appendix is unremarkable. No free air or free fluid . Prominent degenerative changes throughout the lumbar spine. Central canal stenosis most pronounced at the L3-4 level. Diverticula arise from the colon without adjacent inflammation. IMPRESSION: Biliary distention, with the common bile duct up to 1.3 cm, is greater than normally seen with reserv oir artifact after a cholecystectomy. In the setting of abnormal liver function tests, biliary obstru ction must be considered. Bilateral adnexal cystic masses. Diverticulosis. No evidence of diverticulitis. POS: BST
[2019-07-31 22:13] LABS: Lactic Acid 1.3 mmol/L (0.5-2.2)
[2019-07-31 23:00] LABS: Acetaminophen Less than 6.0 mcg/mL (10.0-30.0)
[2019-07-31 23:33] LABS: HBCM Index 0.05 S/CO (0-0.79); HBSAg Index 0.13 S/CO (0-0.99); Hep A IgM AB Non-Reactive (NonReactive); Hep A IgM S/CO 0.16 S/CO (0-0.79); Hep B Surf Ag Non-Reactive S/CO (NonReactive); Hep C IgG Ab Non-Reactive (NonReactive); Hep C Index 0.05 S/CO (0-0.79); Hepatitis B Core IgM Abs Non-Reactive (NonReactive)
[2019-08-01] MEDS ORDERED: Acetaminophen 325 MG TAB PO PRN (00:39)
[2019-08-01] MEDS ORDERED: Ondansetron ODT 4 MG TAB SL PRN (00:39)
[2019-08-01] MEDS ORDERED: Ondansetron PF 4 MG/2 ML Vial IVP PRN (00:39)
[2019-08-01 00:52] VITALS: BMI 25.3
[2019-08-01] MEDS: Sodium Chloride 0.9% 1,000 ML IV SCH ×4 (01:10→21:00)
[2019-08-01] MEDS ORDERED: Dextrose 50% Abboject 50 ML SYRINGE SLOW IVP PRN (08:54)
[2019-08-01] MEDS ORDERED: Dextrose 5% in Water 1,000 ML IV PRN (08:54)
[2019-08-01] MEDS ORDERED: Famotidine 20 MG TAB PO SCH (09:00)
--- NOTE | 2019-08-01 09:09 | PDOC.HHP ---
Hospitalist HPI - History of Present Illness Low back pain History of Present Illness: Patient presented to the ED on 07/29 and was diagnosed with UTI. She was Rx'd Levaquin and sent home. She returned on 07/30 with pain in the sacral area and gluteal cleft area. Pain was a fairly substantial. She denied any urinary symptoms. Denied any abdominal or back pain. Denied any fever. Cultures returned as E. coli that happened to be resistant to the Levaquin that she was prescribed. She was noted to have elevated lactic acid level and was admitted to the hospital for IV antibiotics. Labs also revealed elevated liver enzymes. CT of the abdomen and pelvis revealed dilatation of the common bile duct larger than expected for a post cholecystectomy situation ED Course: Patient was given IV Levaquin and cefepime. Case was discussed with GI. Patient received IV hydration. Hospitalist ROS - Review of Systems Constitutional: denies: fever, chills Gastrointestinal: denies: nausea, vomiting, abdominal pain Genitourinary: denies: dysuria, frequency - Medication Medications: Active Medications Generic Name Dose Route Start Last Admin Trade Name Bhavikq PRN Reason Stop Dose Admin Sodium Chloride 10 ml 08/01/19 09:00 08/01/19 07:48 Flush - Normal Saline IVF Not Given Q12HR JEB Tylenol 3 as needed Glipizide 10 mg p.o. daily Mirtazapine 15 mg daily Amlodipine 10 mg daily Levaquin Hospitalist History - Past Medical History Cardiac: reports: HTN Psych: reports: Depression Musculoskeletal: reports: Osteoarthritis Endocrine: reports: Diabetes - Past Surgical History Past Surgical History: reports: Cholecystectomy - Family History Family History: reports: no pertinent history - Social History Smoking Status: Smokes 0-10 cigs daily Alcohol: reports: None Drugs: reports: none Other Social History: Patient is full code. Her daughter would be her surrogate decision-maker. - Exam General Appearance: NAD, awake alert Heart: RRR, no murmur, no gallops, no rubs, normal peripheral pulses Respiratory: CTAB, no wheezes, no rales, no ronchi, normal chest expansion, no tachypnea, normal percussion Gastrointestinal: soft, non-tender, non-distended, normal bowel sounds, no palpable masses, no hepatomegaly, no splenomegaly, no bruit Extremities: no cyanosis, no clubbing, no edema Skin: normal turgor, no lesions, no rashes Neurological: no focal deficits Musculoskeletal: normal tone, normal strength, no muscle wasting Psychiatric: normal affect, normal behavior, A&O x 3 Hospitalist Results - Labs Result Diagrams: 07/31/19 18:45 07/31/19 18:45 Lab results: WBC 5.6 thou/uL (4.8-10.8) 07/31/19 18:45 Hgb 12.1 g/dL (12.0-16.0) 07/31/19 18:45 Hct 35.2 % (36.0-47.0) L 07/31/19 18:45 MCV 86.1 fL (78.0-98.0) 07/31/19 18:45 Plt Count 324 thou/uL (130-400) 07/31/19 18:45 Neutrophils % 64.2 % (42.0-75.0) 07/31/19 18:45 VBG pCO2 35.5 mmHg (40.0-50.0) L 07/31/19 19:23 VBG pO2 52.9 mmHg (35.0-45.0) H 07/31/19 19:23 Sodium 131 mmol/L (136-145) L 07/31/19 18:45 Potassium 4.7 mmol/L (3.5-5.1) 07/31/19 18:45 Chloride 101 mmol/L (98-107) 07/31/19 18:45 Carbon Dioxide 19 mmol/L (23-31) L 07/31/19 18:45 BUN 19 mg/dL (9.8-20.1) 07/31/19 18:45 Creatinine 1.44 mg/dL (0.6-1.1) H 07/31/19 18:45 Glucose 317 mg/dL (83-110) H 07/31/19 18:45 Lactic Acid 1.3 mmol/L (0.5-2.2) 07/31/19 21:32 Calcium 9.1 mg/dL (7.8-10.44) 07/31/19 18:45 Total Bilirubin 1.3 mg/dL (0.2-1.2) H 07/31/19 18:45 AST 1081 U/L (5-34) H 07/31/19 18:45 ALT 378 U/L (8-55) H 07/31/19 18:45 Alkaline Phosphatase 255 U/L (40-110) H 07/31/19 18:45 Serum Total Protein 7.4 g/dL (6.0-8.3) 07/31/19 18:45 Albumin 3.5 g/dL (3.4-4.8) 07/31/19 18:45 Lipase 174 U/L (8-78) H 07/31/19 18:45 - Radiology Interpretation CT scan - abdomen Status: report reviewed by me (Patient has dilated common bile duct. She has adnexal cysts bilaterally.) Hospitalist H&P A/P - Problem (1) Urinary tract infection Status: Acute (2) Transaminitis Code(s): R74.0 - NONSPEC ELEV OF LEVELS OF TRANSAMNS & LACTIC ACID DEHYDRGNSE Status: Acute (3) COPD (chronic obstructive pulmonary disease) with acute bronchitis Code(s): J44.0 - CHR OBSTRUCTIVE PULMON DISEASE WITH (ACUTE) LOWER RESP INFCT Status: Acute (4) CKD (chronic kidney disease), stage III Status: Chronic (5) Diabetes type 2, controlled Code(s): E11.9 - TYPE 2 DIABETES MELLITUS WITHOUT COMPLICATIONS Status: Chronic Qualifiers: Diabetes mellitus senior living insulin use: without senior living use Diabetes mellitus complication status: with kidney complications Diabetes mellitus complication detail: with chronic kidney disease Chronic kidney disease stage : stage 3 (moderate) Qualified Code(s): E11.22 - Type 2 diabetes mellitus with diabetic chronic kidney disease; N18.3 - Chronic kidney disease, stage 3 ( moderate) (6) Hypertension Code(s): I10 - ESSENTIAL (PRIMARY) HYPERTENSION Status: Chronic (7) Tobacco abuse Code(s): Z72.0 - TOBACCO USE Status: Chronic - Plan Plan: Urinary tract infection: Cultures growing E. coli and. It is resistant to the Levaquin. Will change to IV Rocephin. Lactic acid levels have improved. Transaminitis: Patient appears to be largely asymptomatic at the moment. Concern for possible common bile duct obstruction. GI consultation placed. Hepatitis panel negative. Diabetes mellitus: Sliding scale insulin as the patient remains n.p.o. We will not give her standing doses of insulin until she is back to eating. Hypertension: Need to try to get some clarity on her home medications. It appears as though she was discharged on losartan as well as the hydralazine and amlodipine. Hyponatremia: Mild. Continue to monitor with hydration.
[2019-08-01] MEDS: cefTRIAXone\\ROCEPHIN 1 GM in Sodium Chloride 0.9% 100 ML IVPB SCH (09:12)
[2019-08-01] MEDS: Amlodipine 10 MG TAB PO SCH (09:12)
[2019-08-01] MEDS: hydrALAZINE 25 MG TAB PO SCH ×3 (09:12→20:57)
[2019-08-01] MEDS: glipiZIDE 10 MG TAB PO SCH (09:12)
[2019-08-01] MEDS: Mirtazapine 15 MG TAB PO SCH (09:13)
[2019-08-01] MEDS: Acetaminophen/Codeine 30-300mg Tablet PO PRN ×2 (09:28→17:00)
[2019-08-01] MEDS: HumaLOG 300 UNITS/3 ML VIAL SC PRN ×3 (09:39→17:04)
[2019-08-01] MEDS: Enoxaparin Sodium 40 MG/0.4 ML SYRINGE SC SCH (09:47)
[2019-08-02 04:09] LABS: #Basophils 0.1 thou/uL (0.0-0.2); #Eosinphils 0.4 thou/uL (0.0-0.7); #Lymphocytes 2.5 thou/uL (1.20-3.40); #Monocytes 0.6 thou/uL (0.11-0.59); #Neutrophils 5.1 thou/uL (1.40-6.50); %Eosinophils 4.6 % (0.0-10.0); %Monocytes 6.6 % (0.0-10.0); %Neutrophils 58.8 % (42.0-75.0); Hemoglobin 10.8 g/dL (12.0-16.0); Mean Corpuscular HGB CONC 33.5 g/dL (32.0-36.0); Mean Corpuscular Hemoglobin 29.5 pg (27.0-31.0); Mean Platelet Volume 7.2 fL (7.4-10.4); Platelet Count 277 thou/uL (130-400); RBC Distribution Width 15.2 % (11.5-14.5); Red Blood Cell (RBC) Count 3.67 mill/uL (4.20-5.40); White Blood Cell (WBC) Count 8.7 thou/uL (4.8-10.8)
[2019-08-02 04:30] LABS: ALT (SGPT) 180 U/L (8-55); AST (SGOT) 107 U/L (5-34); Albumin 3.1 g/dL (3.4-4.8); Alkaline Phosphatase 197 U/L (40-110); Bilirubin, Direct 0.2 mg/dL (0.1-0.3); Bilirubin, Total 0.3 mg/dL (0.2-1.2); Protein, Total 5.8 g/dL (6.0-8.3)
[2019-08-02 04:33] LABS: ALT (SGPT) 180 U/L (8-55); AST (SGOT) 108 U/L (5-34); Alkaline Phosphatase 193 U/L (40-110); Anion Gap 10 mmol/L (10-20); BUN (Urea Nitrogen) 14 mg/dL (9.8-20.1); Bilirubin, Total 0.2 mg/dL (0.2-1.2); Calc. Creatinine Clearance 39 mL/min (70-130); Calcium 8.2 mg/dL (7.8-10.44); Carbon Dioxide 19 mmol/L (23-31); Chloride 112 mmol/L (98-107); Estimated GFR-MDRD 40; Globulin 2.9 g/dL (2.4-3.5); Glucose 187 mg/dL (83-110); Protein, Total 5.9 g/dL (6.0-8.3); Sodium 137 mmol/L (136-145)
[2019-08-02] MEDS: HumaLOG 300 UNITS/3 ML VIAL SC PRN ×3 (05:57→21:21)
[2019-08-02] MEDS: Mirtazapine 15 MG TAB PO SCH (08:01)
[2019-08-02] MEDS: hydrALAZINE 25 MG TAB PO SCH ×3 (08:01→21:20)
[2019-08-02] MEDS: Famotidine 20 MG TAB PO SCH (08:02)
[2019-08-02] MEDS: glipiZIDE 10 MG TAB PO SCH (08:02)
[2019-08-02] MEDS: Amlodipine 10 MG TAB PO SCH (08:02)
[2019-08-02] MEDS: Acetaminophen/Codeine 30-300mg Tablet PO PRN ×2 (08:03→15:39)
[2019-08-02] MEDS: Enoxaparin Sodium 40 MG/0.4 ML SYRINGE SC SCH (08:04)
[2019-08-02] MEDS: cefTRIAXone\\ROCEPHIN 1 GM in Sodium Chloride 0.9% 100 ML IVPB SCH (08:04)
--- NOTE | 2019-08-02 08:12 | CON ---
DATE OF CONSULTATION: 08/01/2019 REASON FOR CONSULTATION: Abnormal LFTs with CAT scan showing dilation of the common bile duct. HISTORY OF PRESENT ILLNESS: Ms. Starla Qureshi is a very pleasant 79-year-old female hospitalized with back pain and also abnormal LFTs. The patient was seen in the room along with the patient's daughter. Both the patient and the daughter does not speak any Fijian and the interpretation was used to obtain a history. The patient does see Dr. Nolan, who is the primary care doctor. The patient appears very comfortable, lying on the back. The patient tells me that she had abdominal pain. Her pain is basically over the lower left back, more gross at the spine area and belly button area. The patient has no abdominal pain and no epigastric abdominal pain. No nausea or vomiting. No easy indigestion. No heartburn. The patient tells me the pain started approximately a week ago. It appears she has had UTI in the past, but from talking to the patient, it appears that she has and what appears to be the incontinence. There is no history of dysuria or any burning pain on urination. The patient denies similar episodes in the past. The pain seems to be more over the lumbar spine area and extending to the paraspinal muscles. The pain is not over the left renal angle. The patient denies any right upper quadrant pain or any epigastric pain. Apparently, she came to the ER and was found to have abnormal LFTs. The day before, she had normal liver function tests. Apparently, she came to the ER and was sent home on some levofloxacin for possible UTI. She now presents with pain over the back and was hospitalized. The patient has had previous cholecystectomy. The abdominal CAT scan shows dilation of the CBD to 1.3 cm, possibly related to previous cholecystectomy. There is also a possibility of some common bile duct problem. Interestingly, the patient has no abdominal pain whatsoever. The liver function tests are elevated. The bilirubin is 0.3, AST 1081, ALT 378, alkaline phosphatase 255, albumin is 3.5. Lipase is slightly high at 174. She had no leukocytosis on CBC. The hemoglobin is 12.1, WBC 5600, normal differential count. She had . ALLERGIES: NONE. SOCIAL HISTORY: The patient does not smoke or drink alcohol. MEDICAL ILLNESS: 1. Hypertension. 2. Diabetes mellitus. 3. Osteoarthritis. 4. Depression. SURGERIES: Previous cholecystectomy. MEDICATIONS: List reviewed. FAMILY HISTORY: No family history of liver disease, cancer, heart disease, or CVA. REVIEW OF SYSTEMS: A 10-point system reviewed. CONSTITUTIONAL: No weight loss. She has good appetite. Exercise tolerance is pretty good. However, her back pain worsens on ambulation. HEAD: No chronic headache. No syncope. EYES: No diplopia. No impaired vision. EARS: No ear pain. No discharge or any bleeding. NOSE: No nosebleed. THROAT: No sore throat. No dysphagia. NECK: No stiffness or any limitation of movement. LUNGS: No chronic coughing. No hemoptysis, dyspnea. CARDIOVASCULAR SYSTEM: No chest pain. No palpitation. No dyspnea, orthopnea, or PND. GASTROINTESTINAL: No abdominal pain. No nausea or vomiting. GENITOURINARY: She has frequency of urination. No dysuria. No hematuria. She also appears to have urinary incontinence. MUSCULOSKELETAL: History of back pain, more to lower lumbar area and throughout the pelvic bone area. NEUROPSYCHIATRY: Nonrelevant. PHYSICAL EXAMINATION: GENERAL: She is obese, appears very comfortable, in no acute distress. VITAL SIGNS: Stable. Afebrile. Her pulse is 82 and blood pressure is . HEENT: Conjunctivae are clear. NECK: Supple. No adenitis or thyromegaly noted. CARDIOVASCULAR SYSTEM: First and second heart sounds heard. LUNGS: Clear to auscultation. ABDOMEN: Soft. Abdomen is nondistended. Abdomen is nontender over the right upper quadrant epigastric area. Overall, the exam is very benign. She is tender over the lower lumbar area and paraspinal muscle area. EXTREMITIES: Reveal no edema. LABORATORY DATA: Shows normal CBC, no leukocytosis, bandemia. The chemistry panel shows normal lytes, glucose is 247. Lactic acid 1.3 today. Lipase 174, slightly high. Her BUN is 19, creatinine 1.44. Liver function tests are normal on 07/30/2019, but on 07/31/2019 it is markedly elevated to AST 1081, ALT is 378, alkaline phosphatase is 255, . Abdominal CAT scan shows dilation of CBD to 1.3 cm. Otherwise, the CAT scan is negative. CLINICAL IMPRESSION: 1. A 79-year-old female with lower back pain, appears to be more of arthritic pain or something with the spine. Abdomen is very benign. Abdomen is very nontender. She has no abdominal pain. No nausea or vomiting. She has abnormal liver function tests with dilation of common bile duct. The patient appears to have acute liver injury and the etiology is unclear. Possible she could have passed a common bile duct stone and could have caused the acute liver function tests going up. Again, the history and elevation of liver function tests does not correlate very well. She has no abdominal pain whatsoever except for the lower back pain. 2. Mildly elevated lipase. 3. Diabetes. 4. Hypertension. 5. Osteoarthritis. 6. Previous cholecystectomy. RECOMMENDATIONS: 1. Start the patient on diabetic diet. 2. Repeat liver function tests tomorrow and make further recommendations. At the present time, I am really not sure ERCP . There is also possibility of acute liver injury due to medication . Job ID: [id number]
[2019-08-02] MEDS: Sodium Chloride 0.9% 1,000 ML IV SCH ×2 (11:42→21:21)
--- NOTE | 2019-08-02 16:39 | PDOC.HOSPP ---
- Subjective Encounter Date: 08/02/19 Subjective: Feeling well. No complaints. Blood sugar is a little high and that is causing her some concern. - Objective Vital Signs & Weight: Vital Signs (12 hours) Temp Pulse Resp BP Pulse Ox 08/02/19 15:36 97.8 F 76 18 163/74 H 97 08/02/19 11:36 97.8 F 81 16 150/67 H 95 08/02/19 07:52 97.6 F 79 16 174/79 H 94 L Weight Weight 152 lb 6.4 oz I&O: 08/01/19 08/02/19 08/03/19 06:59 06:59 06:59 Intake Total 625 1480 1260 Output Total 900 1375 1700 Balance -275 105 -440 Result Diagrams: 08/02/19 03:28 08/02/19 03:28 Additional Labs: Accuchecks 08/02/19 08/02/19 08/02/19 13:18 10:48 05:34 POC Glucose 305 H 352 H 196 H 08/01/19 08/01/19 20:08 17:07 POC Glucose 194 H 213 H Hospitalist ROS - Medication Medications: Active Medications Generic Name Dose Route Start Last Admin Trade Name Freq PRN Reason Stop Dose Admin Acetaminophen/Codeine Phosphate 1 tab 08/01/19 08:49 08/02/19 15:39 Tylenol #3 PO 1 tab Q6H PRN Administration Pain Amlodipine Besylate 10 mg 08/01/19 09:00 08/02/19 08:02 Norvasc PO 10 mg DAILY JEB Administration Enoxaparin Sodium 40 mg 08/01/19 09:00 08/02/19 08:04 Lovenox SC 40 mg 0900 JEB Administration Famotidine 20 mg 08/02/19 09:00 08/02/19 08:02 Pepcid PO 20 mg DAILY JEB Administration Glipizide 10 mg 08/01/19 09:00 08/02/19 08:02 Glucotrol PO 10 mg DAILY JEB Administration Hydralazine HCl 25 mg 08/01/19 09:00 08/02/19 15:40 Apresoline PO 25 mg TID JEB Administration Ceftriaxone Sodium 1 gm/ 100 mls @ 200 mls/hr 08/01/19 09:00 08/02/19 08:04 Sodium Chloride IVPB 100 mls Q24HR JEB Administration Sodium Chloride 1,000 mls @ 75 mls/hr 08/01/19 09:00 08/02/19 11:42 Normal Saline 0.9% IV 1,000 mls .[id number] JEB Administration Insulin Human Lispro 0 units 08/01/19 08:54 08/02/19 11:48 Humalog SC 8 unit .MILD SLIDING SCALE PRN Administration Mild Correctional Scale Mirtazapine 15 mg 08/01/19 09:00 08/02/19 08:01 Remeron PO 15 mg DAILY JEB Administration Sodium Chloride 10 ml 08/01/19 09:00 08/02/19 08:05 Flush - Normal Saline IVF 10 ml Q12HR JEB Administration - Exam General Appearance: NAD, awake alert Heart: RRR, no murmur, no gallops, no rubs, normal peripheral pulses Respiratory: CTAB, no wheezes, no rales, no ronchi, normal chest expansion, no tachypnea, normal percussion Gastrointestinal: soft, non-tender, non-distended, normal bowel sounds, no palpable masses, no hepatomegaly, no splenomegaly, no bruit Extremities: no cyanosis, no clubbing, no edema Skin: normal turgor Neurological: no focal deficits Musculoskeletal: normal tone, normal strength, no muscle wasting Psychiatric: normal affect, normal behavior, A&O x 3 Hosp A/P (1) Urinary tract infection Status: Acute (2) Transaminitis Code(s): R74.0 - NONSPEC ELEV OF LEVELS OF TRANSAMNS & LACTIC ACID DEHYDRGNSE Status: Acute (3) COPD (chronic obstructive pulmonary disease) with acute bronchitis Code(s): J44.0 - CHR OBSTRUCTIVE PULMON DISEASE WITH (ACUTE) LOWER RESP INFCT Status: Acute (4) CKD (chronic kidney disease), stage III Status: Chronic (5) Diabetes type 2, controlled Code(s): E11.9 - TYPE 2 DIABETES MELLITUS WITHOUT COMPLICATIONS Status: Chronic Qualifiers: Diabetes mellitus detention insulin use: without oil heaterman use Diabetes mellitus complication status: with kidney complications Diabetes mellitus complication detail: with chronic kidney disease Chronic kidney disease stage : stage 3 (moderate) Qualified Code(s): E11.22 - Type 2 diabetes mellitus with diabetic chronic kidney disease; N18.3 - Chronic kidney disease, stage 3 ( moderate) (6) Hypertension Code(s): I10 - ESSENTIAL (PRIMARY) HYPERTENSION Status: Chronic (7) Tobacco abuse Code(s): Z72.0 - TOBACCO USE Status: Chronic - Plan UTI: E. coli. Covered with Rocephin. Can change to po on discharge. Blood cultures negative thus far. Transaminitis: Concern for dilated common duct on CT. Labs are much improved. GI input appreciated. Discussed with GI. Plan is for OP follow up. DM: Change diet from HH to Diabetic 1999 david.
[2019-08-03] MEDS: HumaLOG 300 UNITS/3 ML VIAL SC PRN ×3 (06:24→17:05)
[2019-08-03] MEDS: Mirtazapine 15 MG TAB PO SCH (09:01)
[2019-08-03] MEDS: glipiZIDE 10 MG TAB PO SCH (09:01)
[2019-08-03] MEDS: Famotidine 20 MG TAB PO SCH (09:02)
[2019-08-03] MEDS: Amlodipine 10 MG TAB PO SCH (09:03)
[2019-08-03] MEDS: hydrALAZINE 25 MG TAB PO SCH ×3 (09:03→20:39)
[2019-08-03] MEDS: Enoxaparin Sodium 40 MG/0.4 ML SYRINGE SC SCH (09:04)
--- NOTE | 2019-08-03 09:13 | PRG ---
DATE OF SERVICE: 08/02/2019 SUBJECTIVE: This 79-year-old female hospitalized for back pain and possible UTI. The patient was found to have abnormal LFTs on admission. Had an abdominal CAT scan. The CAT scan shows dilation of CBD but no liver mass or pancreatic mass seen. The patient has had previous cholecystectomy and it was felt most likely dilation from previous cholecystectomy. The patient had abdominal pain, nausea, vomiting. Abdominal exam is very benign. It was more tender over the lower lumbar area and pain. [place] her pain is most likely musculoskeletal. She is tolerating diet. No abdominal pain. No nausea or vomiting. Her back pain is getting better. Interestingly, her liver function tests are dropping down very quickly. The AST is down to 107, ALT down to 180, alkaline phosphatase 197, albumin 3.1, bilirubin 0.3. Yesterday, the AST was 1081, ALT 378, alkaline phosphatase 255. She offers no complaints. PHYSICAL EXAMINATION: VITAL SIGNS: Afebrile. Pulse is 76, blood pressure 163/74. CARDIOVASCULAR: Normal heart sounds. LUNGS: Clear to auscultation. ABDOMEN: Soft. Abdomen is nondistended. Abdomen is nontender. No organomegaly. No masses. The lower back actually is slightly tender today than yesterday. She also appears more comfortable. IMPRESSION: Abnormal LFTs, etiology unclear. The pattern is suggestive of acute liver injury. She has no abdominal pain, nausea, vomiting whatsoever. Somewhat difficult to interpret the LFTs in the absence of any other symptoms. She does have dilated CBD which is mostly from the previous cholecystectomy. I did talk to Dr. Axel Landeros, the Hospitalist Service. I did explain to him that we will probably need to watch her for a while as an outpatient. She had no new problems. She can be discharged home and I will follow her as an outpatient. Job ID: [id number]
[2019-08-03] MEDS: cefTRIAXone\\ROCEPHIN 1 GM in Sodium Chloride 0.9% 100 ML IVPB SCH (11:36)
[2019-08-03 12:02] LABS: #Basophils 0.1 thou/uL (0.0-0.2); #Eosinphils 0.4 thou/uL (0.0-0.7); #Monocytes 0.5 thou/uL (0.11-0.59); #Neutrophils 4.3 thou/uL (1.40-6.50); %Basophils 0.7 % (0.0-1.0); %Eosinophils 5.1 % (0.0-10.0); %Lymphocytes 27.2 % (21.0-51.0); %Monocytes 6.6 % (0.0-10.0); %Neutrophils 60.4 % (42.0-75.0); Mean Corpuscular HGB CONC 34.3 g/dL (32.0-36.0); Mean Corpuscular Hemoglobin 29.7 pg (27.0-31.0); Mean Corpuscular Volume 86.7 fL (78.0-98.0); Mean Platelet Volume 7.1 fL (7.4-10.4); Platelet Count 274 thou/uL (130-400); RBC Distribution Width 15.1 % (11.5-14.5); Red Blood Cell (RBC) Count 3.69 mill/uL (4.20-5.40); White Blood Cell (WBC) Count 7.2 thou/uL (4.8-10.8)
[2019-08-03 12:23] LABS: ALT (SGPT) 97 U/L (8-55); AST (SGOT) 30 U/L (5-34); Albumin 3.2 g/dL (3.4-4.8); Alkaline Phosphatase 161 U/L (40-110); Anion Gap 10 mmol/L (10-20); BUN (Urea Nitrogen) 13 mg/dL (9.8-20.1); Bilirubin, Total 0.3 mg/dL (0.2-1.2); Calc. Creatinine Clearance 46 mL/min (70-130); Calcium 8.5 mg/dL (7.8-10.44); Carbon Dioxide 20 mmol/L (23-31); Chloride 110 mmol/L (98-107); Estimated GFR-MDRD 48; Globulin 2.9 g/dL (2.4-3.5); Glucose 295 mg/dL (83-110); Potassium 4.2 mmol/L (3.5-5.1); Protein, Total 6.1 g/dL (6.0-8.3); Sodium 136 mmol/L (136-145)
--- NOTE | 2019-08-03 14:11 | PDOC.HOSPP ---
- Subjective Encounter Date: 08/03/19 Subjective: Talked with patient via [employer]. She feels ok other than pain in the right upper buttock and extending down to the mid-right thigh. No hx of injury or fall. Says she cannot stand due to the pain. Says the pain is worse when she moves. - Objective Vital Signs & Weight: Vital Signs (12 hours) Temp Pulse Resp BP Pulse Ox 08/03/19 11:38 75 171/74 H 95 08/03/19 08:05 98.5 F 80 18 176/79 H 94 L 08/03/19 03:09 97.8 F 78 18 149/69 H 98 Weight Weight 152 lb 6.4 oz I&O: 08/02/19 08/03/19 08/04/19 06:59 06:59 06:59 Intake Total 1480 3120 Output Total 1375 5100 800 Balance 105 -1980 -800 Result Diagrams: 08/03/19 11:36 08/03/19 11:36 Additional Labs: Accuchecks 08/03/19 08/03/19 08/02/19 11:24 05:36 20:05 POC Glucose 311 H 168 H 289 H 08/02/19 16:49 POC Glucose 156 H Hospitalist ROS - Medication Medications: Active Medications Generic Name Dose Route Start Last Admin Trade Name Freq PRN Reason Stop Dose Admin Acetaminophen/Codeine Phosphate 1 tab 08/01/19 08:49 08/02/19 15:39 Tylenol #3 PO 1 tab Q6H PRN Administration Pain Amlodipine Besylate 10 mg 08/01/19 09:00 08/03/19 09:03 Norvasc PO 10 mg DAILY JEB Administration Enoxaparin Sodium 40 mg 08/01/19 09:00 08/03/19 09:04 Lovenox SC 40 mg 0900 JEB Administration Famotidine 20 mg 08/02/19 09:00 08/03/19 09:02 Pepcid PO 20 mg DAILY JEB Administration Glipizide 10 mg 08/01/19 09:00 08/03/19 09:01 Glucotrol PO 10 mg DAILY JEB Administration Hydralazine HCl 25 mg 08/01/19 09:00 08/03/19 09:03 Apresoline PO 25 mg TID JEB Administration Ceftriaxone Sodium 1 gm/ 100 mls @ 200 mls/hr 08/01/19 09:00 08/03/19 11:36 Sodium Chloride IVPB 100 mls Q24HR JEB Administration Sodium Chloride 1,000 mls @ 75 mls/hr 08/01/19 09:00 08/02/19 21:21 Normal Saline 0.9% IV 1,000 mls .[id number] JEB Administration Insulin Human Lispro 0 units 08/01/19 08:54 08/03/19 12:53 Humalog SC 5 unit .MILD SLIDING SCALE PRN Administration Mild Correctional Scale Mirtazapine 15 mg 08/01/19 09:00 08/03/19 09:01 Remeron PO 15 mg DAILY JEB Administration Sodium Chloride 10 ml 08/01/19 09:00 08/03/19 11:37 Flush - Normal Saline IVF Not Given Q12HR JEB - Exam General Appearance: NAD, awake alert Heart: RRR, no murmur, no gallops, no rubs, normal peripheral pulses Respiratory: CTAB, no wheezes, no rales, no ronchi, normal chest expansion, no tachypnea, normal percussion Gastrointestinal: soft, non-tender, non-distended, normal bowel sounds, no palpable masses, no hepatomegaly, no splenomegaly, no bruit Extremities: no cyanosis, no clubbing, no edema Skin: normal turgor Neurological: no focal deficits Musculoskeletal - other findings: Min TTP right buttock area. Hosp A/P (1) Urinary tract infection Status: Acute (2) Transaminitis Code(s): R74.0 - NONSPEC ELEV OF LEVELS OF TRANSAMNS & LACTIC ACID DEHYDRGNSE Status: Acute (3) COPD (chronic obstructive pulmonary disease) with acute bronchitis Code(s): J44.0 - CHR OBSTRUCTIVE PULMON DISEASE WITH (ACUTE) LOWER RESP INFCT Status: Acute (4) CKD (chronic kidney disease), stage III Status: Chronic (5) Diabetes type 2, controlled Code(s): E11.9 - TYPE 2 DIABETES MELLITUS WITHOUT COMPLICATIONS Status: Chronic Qualifiers: Diabetes mellitus medical terminologist insulin use: without medical terminologist use Diabetes mellitus complication status: with kidney complications Diabetes mellitus complication detail: with chronic kidney disease Chronic kidney disease stage : stage 3 (moderate) Qualified Code(s): E11.22 - Type 2 diabetes mellitus with diabetic chronic kidney disease; N18.3 - Chronic kidney disease, stage 3 ( moderate) (6) Hypertension Code(s): I10 - ESSENTIAL (PRIMARY) HYPERTENSION Status: Chronic (7) Tobacco abuse Code(s): Z72.0 - TOBACCO USE Status: Chronic - Plan UTI: E. coli. Covered with Rocephin. Can change to po on discharge. Blood cultures negative thus far. Transaminitis: Concern for dilated common duct on CT. Enzymes have normalized. GI input appreciated. Discussed with GI. Plan is for OP follow up. DM: Change diet from HH to Diabetic 1999 david. Low back/hip pain: Concerning for lumbar radiculopathy. L-spine x-rays, right hip x-rays. PT. If she can get up and ambulate, will consider discharge for OP workup.
--- NOTE | 2019-08-03 15:37 | RAD ---
Exam: XR Hip Rt 2-3 View HISTORY: Right hip pain COMPARISON: None FINDINGS: Mild right hip osteoarthritis is present. No acute fracture, dislocation, or other acute osseous abnormality is identified. IMPRESSION: No acute osseous abnormality is identified.
--- NOTE | 2019-08-03 15:42 | RAD ---
LUMBAR SPINE THREE VIEWS: 08/03/19 HISTORY: Lumbar radiculopathy. FINDINGS: There are degenerative changes with dextroscoliosis of the lumbar spine. There is minimal retrolisthe sis of L2 over L3. No compression fracture or bony destruction is seen. IMPRESSION: Lumbar spondylosis with dextroscoliosis. POS: [facility]
[2019-08-03] MEDS: Sodium Chloride 0.9% 1,000 ML IV SCH ×2 (17:02→19:17)
[2019-08-04] MEDS: HumaLOG 300 UNITS/3 ML VIAL SC PRN ×3 (07:21→16:59)
[2019-08-04] MEDS: cefTRIAXone\\ROCEPHIN 1 GM in Sodium Chloride 0.9% 100 ML IVPB SCH (09:26)
[2019-08-04] MEDS: Amlodipine 10 MG TAB PO SCH (09:26)
[2019-08-04] MEDS: glipiZIDE 10 MG TAB PO SCH (09:27)
[2019-08-04] MEDS: Enoxaparin Sodium 40 MG/0.4 ML SYRINGE SC SCH (09:27)
[2019-08-04] MEDS: Famotidine 20 MG TAB PO SCH (09:27)
[2019-08-04] MEDS: Mirtazapine 15 MG TAB PO SCH (09:28)
[2019-08-04] MEDS: hydrALAZINE 25 MG TAB PO SCH ×2 (09:28→15:03)
[2019-08-04] MEDS: Sodium Chloride 0.9% 1,000 ML IV SCH (09:33)
[2019-08-04 12:12] LABS: Hemoglobin 11.3 g/dL (12.0-16.0); Mean Corpuscular HGB CONC 34.6 g/dL (32.0-36.0); Mean Corpuscular Hemoglobin 30.2 pg (27.0-31.0); Mean Corpuscular Volume 87.2 fL (78.0-98.0); Mean Platelet Volume 7.3 fL (7.4-10.4); Platelet Count 276 thou/uL (130-400); Red Blood Cell (RBC) Count 3.74 mill/uL (4.20-5.40); White Blood Cell (WBC) Count 6.4 thou/uL (4.8-10.8)
[2019-08-04 12:22] LABS: ALT (SGPT) 68 U/L (8-55); AST (SGOT) 23 U/L (5-34); Albumin 3.4 g/dL (3.4-4.8); Alkaline Phosphatase 142 U/L (40-110); Anion Gap 14 mmol/L (10-20); BUN (Urea Nitrogen) 17 mg/dL (9.8-20.1); Bilirubin, Total 0.2 mg/dL (0.2-1.2); Calc. Creatinine Clearance 41 mL/min (70-130); Calcium 8.8 mg/dL (7.8-10.44); Carbon Dioxide 18 mmol/L (23-31); Chloride 109 mmol/L (98-107); Estimated GFR-MDRD 42; Globulin 3.2 g/dL (2.4-3.5); Glucose 303 mg/dL (83-110); Potassium 3.8 mmol/L (3.5-5.1); Protein, Total 6.6 g/dL (6.0-8.3); Sodium 137 mmol/L (136-145)
--- NOTE | 2019-08-04 14:10 | EKG ---
Test Reason : Blood Pressure : / mmHG Vent. Rate : 074 BPM Atrial Rate : 074 BPM P-R Int : 180 ms QRS Dur : 072 ms QT Int : 392 ms P-R-T Axes : 054 004 032 degrees QTc Int : 435 ms Normal sinus rhythm Normal ECG Confirmed by MINESH CORLEY DO ([id number]), design editor RONAK CLARK ([id number]) on 08/04/2019 2:10:23 PM Referred By: Confirmed By:MINESH CORLEY DO
[2019-08-04 15:03] VITALS: TEMP 98.5
[2019-08-04 17:46] VITALS: BP 156/74
--- NOTE | 2019-08-04 20:43 | DIS ---
DATE OF ADMISSION: 07/31/2019 DATE OF DISCHARGE: 08/04/2019 DISCHARGE DIAGNOSES: 1. Sacral and gluteal pain possibly secondary to degenerative disk disease. 2. Escherichia coli urinary tract infection. 3. Anemia. 4. Chronic kidney disease. 5. Transaminitis. 6. Common bile duct dilation. 7. Bilateral ovarian cystic masses. 8. Left kidney cyst. BRIEF HISTORY OF PRESENT ILLNESS: This is a 79-year-old female, with past medical history of hypertension, who presented to the emergency room with sacral area and gluteal-cleft area pain. She was recently treated for E coli UTI with Levaquin which turned out to be resistant to Levaquin. She also was noted to have an elevated lactic acid level of 2.8. She also had elevated liver enzymes with AST of 1081, ALT of 378, and alkaline phosphatase of 255. She is admitted for further workup. HOSPITAL COURSE: E coli UTI: The patient was treated with IV ceftriaxone for 4 days. She reported improvement in her symptoms and denied any dysuria and discharge. She was discharged with cefdinir for additional 3 more days. Sacral/gluteal pain: The patient reported some severe right hip pain while ambulating. On the day of discharge, however, she states that the pain had resolved. She was able to walk with a walker. She had a lumbar spine x-ray which showed spondylosis. MRI of her lumbar spine was not able to be completed due to claustrophobia. The patient can follow up with her PCP. Chronic kidney disease: The patient presented with a creatinine of 1.44. She was given IV fluids until 08/03 with improvement. Her creatinine was stabilized at 1.23. She should have a repeat BMP in a week for further evaluation. Transaminitis: The patient had AST of 1081, ALT of 378. She did have a CT scan of her abdomen on admission, which showed some common biliary duct dilation up to 1.3 cm. She denied any abdominal pain, nausea, or vomiting. Her LFTs improved with IV fluids and her AST normalized. Her ALT was 68 and her alkaline phosphatase was 142. She will follow up with Dr. Esteves in the clinic and have repeat LFTs done in a week. Bilateral ovarian masses: The patient is asymptomatic from this. She should have this followed up with her PCP. Left renal cyst: This was noted incidentally on her CT scan. She can have this followed up outpatient with her PCP. Hypertension: The patient's blood pressure was up to the 180s while in the hospital. Blood pressure was controlled with hydralazine 25 t.i.d. She was prescribed this on discharge. PCP should re-evaluate whether the patient still needs this or not. DISCHARGE PHYSICAL EXAMINATION: VITAL SIGNS: Temperature 98.5, HR 83, RR 18, O2 saturation 95% on room air, BP 156/74. GENERAL: The patient is alert, awake, oriented x3. CVS: Regular rate and rhythm with no murmurs, rubs, or gallops. LUNGS: Clear to auscultation bilaterally. ABDOMEN: Positive bowel sounds, soft, nontender, nondistended. EXTREMITIES: The patient is able to move all 4 extremities. She is able to ambulate without any pain. She has no hip tenderness. PERTINENT LABORATORY DATA: CBC, 08/03: Shows hemoglobin 11.3, hematocrit 32.6. CMP, 08/03: Shows a creatinine of 1.23. AST 23, ALT 68, alkaline phosphatase 142. Tylenol level, 07/30: Less than 6. Hepatitis serology: Negative. IMAGING STUDIES: Chest x-ray 07/30: No active cardiopulmonary abnormalities. CT chest abdomen and pelvis, 07/30: Bilateral adrenal cystic masses. Biliary distention with common bile duct up to 1.3 cm. Left kidney cyst that is 1.7 cm. Hip x-ray, 08/02: Shows no acute abnormality. Lumbar spine x-ray, 08/02: Shows lumbar spondylosis with dextroscoliosis. DISCHARGE CONDITION: Stable. ACTIVITY: As tolerated. DIET: Diabetic diet. DISCHARGE MEDICATIONS: New prescriptions: 1. Cefdinir 300 mg p.o. b.i.d. 2. Hydralazine 25 mg p.o. t.i.d. All other home medications were resumed. Job ID: [id number] MTDD
[2019-08-04] MEDS ORDERED: Cefdinir 300 MG CAP PO SCH (21:00)
--- NOTE | 2019-08-07 05:36 | PQF ---
[employer] Accountant Certified Public [employer] Reports Winform Viewer DAVID IQBAL MADELEINE, JAYLENE [id number] CLINICAL DOCUMENTATION CLARIFICATION FORM: POST DISCHARGE Addendum to original discharge summary date: ____ Late entry note date: __ DATE: 08/07/19 ATTN:Jaylene Tejeda Please exercise your independent, professional judgment in responding to the clarification form. Clinical indicators are provided on the bottom of this form for your review Can you please further clarify if Sepsis is ruled in or ruled out? Sepsis [ ] Ruled in diagnosis [ ] Continue to treat [ ] Resolved [ X ] Ruled out diagnosis [ ] Cannot rule out diagnosis [ ] Other diagnosis [ ] Unable to determine In addition, please specify: Present on Admission (POA): [ ] Yes [ ] No [ ] Unable to determine For continuity of documentation, please document condition throughout progress notes and discharge summary. Thank You. CLINICAL INDICATORS - SIGNS / SYMPTOMS / LABS ED Provider pg.4- Sepsis H and P pg.1- She was noted to have elevated lactic acid level Hospitalist PN pg.4- cultures growing E.coli Laboratory- , 7.2, 6.4 DS pg.1- E.coli UTI VS- T 98.4F,Pulse 75BPM, RR 20, BP 158/72 RISK FACTORS UTI- Hospitalist pg.4 79 years old- H and Ppg.1 Smoker- H and P pg.1 CKD_ DS pg.1 TREATMENTS Chest/abdomen/pelvis CT- 6/[address] Esteves IV Fluids- [facility] Blood culture- Microbiology (This form is maintained as a part of the permanent medical record) 2014 [employer]. All Rights Reserved Matt [email or web address]
== END 2019-08-04 19:30 | disposition home or self-care (01) | DRG 551 ==
LOC: ERS 18:30 → 2NO 23:12
PROVIDERS: ADMIT Internal Medicine; ATTEND Internal Medicine
DX: M53.3 Sacrococcygeal disorders, not elsewhere classified (principal); K72.00 Acute and subacute hepatic failure without coma; N39.0 Urinary tract infection, site not specified; Z16.29 Resistance to other single specified antibiotic; E87.1 Hypo-osmolality and hyponatremia; B96.20 Unspecified Escherichia coli [E. coli] as the cause of diseases classified elsewhere; D63.1 Anemia in chronic kidney disease; I12.9 Hypertensive chronic kidney disease with stage 1 through stage 4 chronic kidney disease, or unspecified chronic kidney disease; N28.1 Cyst of kidney, acquired; E78.5 Hyperlipidemia, unspecified; E11.22 Type 2 diabetes mellitus with diabetic chronic kidney disease; M19.90 Unspecified osteoarthritis, unspecified site; F32.9 Major depressive disorder, single episode, unspecified; F17.210 Nicotine dependence, cigarettes, uncomplicated; K83.8 Other specified diseases of biliary tract; R74.0 Nonspecific elevation of levels of transaminase and lactic acid dehydrogenase [LDH]; J44.9 Chronic obstructive pulmonary disease, unspecified; N18.3 Chronic kidney disease, stage 3 (moderate); F40.240 Claustrophobia; Z79.84 Long term (current) use of oral hypoglycemic drugs; Z90.49 Acquired absence of other specified parts of digestive tract; Z79.899 Other long term (current) drug therapy
CPT/HCPCS: 36415; 36416; 71045; 71260; 72100; 72148; 74177; 80053; 80074; 80307; 82330; 82803; 83605; 83690; 85025; 85027; 86705; 87040; 93005; 96365; 96375; J0692; J0696; J1650; J1956; J3010; J3490; Q9967

== ENCOUNTER 2019-08-05 05:54 | Emergency (ER) | payer MEDICAID, SELFPAY ==
[2019-08-05] MEDS ORDERED: Ketorolac Tromethamine 30 MG/ML VIAL ONE (06:15)
[2019-08-05] MEDS ORDERED: Acetaminophen/Codeine 30-300mg Tablet ONE (08:58)
== END 2019-08-05 10:10 | disposition home or self-care (01) ==
LOC: ERS 05:54
DX: M54.32 Sciatica, left side (principal); E11.9 Type 2 diabetes mellitus without complications; I10 Essential (primary) hypertension; F32.9 Major depressive disorder, single episode, unspecified; F17.210 Nicotine dependence, cigarettes, uncomplicated; Z79.899 Other long term (current) drug therapy
CPT/HCPCS: 96372; 99283; J1885

== ENCOUNTER 2020-04-28 15:43 | Observation (INO) | payer MEDICAID, SELFPAY ==
[2020-04-28 16:53] LABS: #Basophils 0.1 thou/uL (0.0-0.2); #Eosinphils 0.2 thou/uL (0.0-0.7); #Lymphocytes 2.8 thou/uL (1.20-3.40); #Monocytes 0.8 thou/uL (0.11-0.59); #Neutrophils 6.8 thou/uL (1.40-6.50); %Basophils 0.6 % (0.0-1.0); %Monocytes 7.6 % (0.0-10.0); %Neutrophils 63.8 % (42.0-75.0); Hemoglobin 11.3 g/dL (12.0-16.0); Mean Corpuscular HGB CONC 34.5 g/dL (32.0-36.0); Mean Corpuscular Hemoglobin 31.4 pg (27.0-31.0); Mean Corpuscular Volume 91.1 fL (78.0-98.0); Mean Platelet Volume 6.8 fL (7.4-10.4); Platelet Count 309 thou/uL (130-400); RBC Distribution Width 13.3 % (11.5-14.5); White Blood Cell (WBC) Count 10.6 thou/uL (4.8-10.8)
[2020-04-28 17:14] LABS: ALT (SGPT) 16 U/L (8-55); AST (SGOT) 11 U/L (5-34); Albumin 3.6 g/dL (3.4-4.8); Alkaline Phosphatase 67 U/L (40-110); Anion Gap 16 mmol/L (10-20); BUN (Urea Nitrogen) 31 mg/dL (9.8-20.1); Bilirubin, Total 0.2 mg/dL (0.2-1.2); Calc. Creatinine Clearance 0 mL/min (70-130); Calcium 8.6 mg/dL (7.8-10.44); Carbon Dioxide 20 mmol/L (23-31); Chloride 103 mmol/L (98-107); Glucose 321 mg/dL (83-110); Lipase 91 U/L (8-78); Potassium 4.6 mmol/L (3.5-5.1); Protein, Total 6.6 g/dL (5.8-8.1); Sodium 134 mmol/L (136-145)
--- NOTE | 2020-04-28 18:02 | RAD ---
XR Chest 1 View Portable HISTORY: Right upper quadrant abdominal pain. COMPARISON: 07/31/2019 FINDINGS: The heart size is normal. The lungs are well expanded without focal areas of consolidation, pneumothorax or pleural effusions. IMPRESSION: No radiographic evidence of acute cardiopulmonary process.
[2020-04-28 18:05] LABS: Bacteria/HPF 3+ HPF (None Seen); Bilirubin Negative (Negative); Blood, Urine Trace (Negative); Clarity Clear (Clear); Glucose, Urine (Dipstick) >=1000 mg/dL (Negative); Ketone, Urine Negative (Negative); Leukocyte 25 Leu/uL (Negative); Nitrite Negative (Negative); Protein, Urine (Dipstick) 100 mg/dL (Neg-Trace); RBC/HPF 0-3 HPF (0-3); Specific Gravity, Urine 1.009 (1.002-1.036); Squamous Epithelial None Seen HPF (0-3); Urobilinogen Normal mg/dL (Less than 2)
[2020-04-28] MEDS ORDERED: Nitroglycerin 2% Ointment 1 INCH/1 GM Packet ONE (18:22)
[2020-04-28] MEDS ORDERED: Aspirin 325 MG TAB ONE (18:22)
[2020-04-28] MEDS ORDERED: Morphine 2 MG/ML VIAL SLOW IVP SCH (19:30)
[2020-04-28] MEDS ORDERED: Dextrose 50% Abboject 50 ML SYRINGE SLOW IVP PRN (19:37)
[2020-04-28] MEDS ORDERED: Dextrose 5% in Water 1,000 ML IV PRN (19:37)
[2020-04-28] MEDS ORDERED: HumaLOG 300 UNITS/3 ML VIAL SC PRN ×2 (19:37)
--- NOTE | 2020-04-28 23:03 | PDOC.HHP ---
Hospitalist HPI History of Present Illness: ADMISSION DATE: 04/28/2020 TIME OF ASSESSMENT:1900 PRIMARY CARE PHYSICIAN: Dr. Nolan CHIEF COMPLAINT: Chest pain HPI: This is a 79-year-old woman, Bengali-speaking only, who presents to the emergency department with complaints of severe right-sided chest pain that started yesterday evening. The patient apparently has had intermittent chest pain for the last week which has been progressively increasing in terms of intensity and lasting longer than it did initially. The evening the pain has been constant and fluctuating in severity between 09/06 and 12/07. Her daughter gave her naproxen yesterday evening with minimal improvement in her pain. States her discomfort only eased to a 7 out of 10 after she was given aspirin and nitro paste in the emergency department. She states when the pain is very severe the right side of her chest is tender right below her right breast. States it feels like a squeezing pain. At one point the pain was wrapping around her side towards the right side of her back. She denies any trauma, injuries or falls. No strenuous activity. States the pain has no relation to her level of activity and states she is mostly sedentary when it occurs. Denies any concurrent nausea, vomiting, diaphoresis, palpitations or lightheadedness. According to patient when the pain is at its worse it causes difficulty with her breathing and she becomes tachypneic. She has not noted any increased pain with deep inspiration. Denies any cough or hemoptysis. She has chronic swelling of the left lower extremity since having thrombophlebitis of the right lower leg years ago. Of note patient has had a CT of the abdomen and pelvis done in the past, July 2019, with findings of biliary distention and a common bile duct measuring 1.3 cm along with elevated liver function tests that were concerning for possible biliary obstruction. She was seen by GI and LFTs improved following IV fluids therefore she was recommended follow-up as an outpatient. ROS: She denies having any recent fevers, chills or sweats. Patient denies a cough but the daughter states that she does cough however this is chronic and it is usually dry. No abdominal pain or cramping. Reports having regular bowel movements without any diarrhea, constipation, bright red blood per rectum or melena. No urinary symptoms. All other review of systems are negative. ED COURSE: EKG done in the emergency department showed a normal sinus rhythm without any ST changes or T wave abnormalities. She had a chest x-ray done that showed no radiographic evidence of acute cardiopulmonary process. Laboratory studies showed negative troponin. White blood count was 10.6, hemoglobin 11.3, hematocrit 32.8, platelets 309, neutrophils 63.8%. Sodium 134, potassium 4.6, BUN 31, creatinine 1.35, GFR 38, glucose 321, calcium 8.6, magnesium 2.0, total bilirubin 0.2, AST 11, ALT 16, alk phos 67, lipase 91. Urinalysis showed clear appearing urine with 100 protein, greater than 1000 glucose, trace blood, 25 leukocyte esterase, 7-10 white blood cells and 3+ bacteria. Nitrates negative. The patient received 324 mg of aspirin in the ER and 1 inch of Nitropaste applied. Allergies/Adverse Reactions: Allergy/AdvReac Type Severity Reaction Status Date / Time No Known Allergies Allergy Verified 08/01/19 01:01 Home Medications: Medication Instructions Recorded Confirmed Type Amlodipine [Norvasc] 10 mg PO DAILY 08/01/19 08/01/19 History Mirtazapine 15 mg PO DAILY 08/01/19 08/01/19 History glipiZIDE [Glipizide] 10 mg PO DAILY 08/01/19 08/01/19 History Cefdinir [Omnicef] 300 mg PO BID #6 cap 08/04/19 Rx hydrALAZINE [Apresoline] 25 mg PO TID #90 tab 08/04/19 Rx Hospitalist Exam General Appearance: NAD, awake alert Eye: PERRL, anicteric sclera ENT: normocephalic atraumatic, no oropharyngeal lesions Neck: supple, no lymphadenopathy Heart: RRR, normal peripheral pulses Respiratory: CTAB, no wheezes, no rales, no ronchi, normal chest expansion Gastrointestinal: soft, non-tender, non-distended, normal bowel sounds Extremities: no edema Skin: normal turgor, no lesions, no rashes Neurological: cranial nerve grossly intact, normal sensation to touch, no weakness Musculoskeletal: normal tone, normal strength, no muscle wasting Psychiatric: normal affect, normal behavior, A&O x 3, oriented to person Hospitalist Results Result Diagrams: 04/28/20 16:39 04/28/20 16:39 Lab results: Laboratory Last Values WBC 10.6 thou/uL (4.8-10.8) 04/28/20 16:39 RBC 3.60 mill/uL (4.20-5.40) L 04/28/20 16:39 Hgb 11.3 g/dL (12.0-16.0) L 04/28/20 16:39 Hct 32.8 % (36.0-47.0) L 04/28/20 16:39 MCV 91.1 fL (78.0-98.0) 04/28/20 16:39 MCH 31.4 pg (27.0-31.0) H 04/28/20 16:39 MCHC 34.5 g/dL (32.0-36.0) 04/28/20 16:39 RDW 13.3 % (11.5-14.5) 04/28/20 16:39 Plt Count 309 thou/uL (130-400) 04/28/20 16:39 MPV 6.8 fL (7.4-10.4) L 04/28/20 16:39 Neutrophils % 63.8 % (42.0-75.0) 04/28/20 16:39 Lymphocytes % 26.0 % (21.0-51.0) 04/28/20 16:39 Monocytes % 7.6 % (0.0-10.0) 04/28/20 16:39 Eosinophils % 2.0 % (0.0-10.0) 04/28/20 16:39 Basophils % 0.6 % (0.0-1.0) 04/28/20 16:39 Neutrophils # 6.8 thou/uL (1.40-6.50) H 04/28/20 16:39 Lymphocytes # 2.8 thou/uL (1.20-3.40) 04/28/20 16:39 Monocytes # 0.8 thou/uL (0.11-0.59) H 04/28/20 16:39 Eosinophils # 0.2 thou/uL (0.0-0.7) 04/28/20 16:39 Basophils # 0.1 thou/uL (0.0-0.2) 04/28/20 16:39 Sodium 134 mmol/L (136-145) L 04/28/20 16:39 Potassium 4.6 mmol/L (3.5-5.1) 04/28/20 16:39 Chloride 103 mmol/L (98-107) 04/28/20 16:39 Carbon Dioxide 20 mmol/L (23-31) L 04/28/20 16:39 Anion Gap 16 mmol/L (10-20) 04/28/20 16:39 BUN 31 mg/dL (9.8-20.1) H 04/28/20 16:39 Creatinine 1.35 mg/dL (0.6-1.1) H 04/28/20 16:39 Estimated GFR (MDRD) 38 04/28/20 16:39 Glucose 321 mg/dL (83-110) H 04/28/20 16:39 POC Glucose 384 mg/dL (70-100) H 04/28/20 21:39 Calcium 8.6 mg/dL (7.8-10.44) 04/28/20 16:39 Magnesium 2.0 mg/dL (1.6-2.6) 04/28/20 19:59 Total Bilirubin 0.2 mg/dL (0.2-1.2) 04/28/20 16:39 AST 11 U/L (5-34) 04/28/20 16:39 ALT 16 U/L (8-55) 04/28/20 16:39 Alkaline Phosphatase 67 U/L (40-110) 04/28/20 16:39 Troponin I Less than 0.010 ng/mL (< 0.028) 04/28/20 19:58 Serum Total Protein 6.6 g/dL (5.8-8.1) 04/28/20 16:39 Albumin 3.6 g/dL (3.4-4.8) 04/28/20 16:39 Globulin 3.0 g/dL (2.4-3.5) 04/28/20 16:39 Albumin/Globulin Ratio 1.2 g/dL (1.2-2.2) 04/28/20 16:39 Lipase 91 U/L (8-78) H 04/28/20 16:39 Urine Color Light-Yellow (Yellow) 04/28/20 17:34 Urine Clarity Clear (Clear) 04/28/20 17:34 Urine pH 6.0 (5.0-9.0) 04/28/20 17:34 Ur Specific [place] 1.009 (1.002-1.036) 04/28/20 17:34 Urine Protein 100 mg/dL (Neg-Trace) A 04/28/20 17:34 Urine Glucose (UA) >=1000 mg/dL (Negative) A 04/28/20 17:34 Urine Ketones Negative mg/dL (Negative) 04/28/20 17:34 Urine Blood Trace (Negative) A 04/28/20 17:34 Urine Nitrite Negative (Negative) 04/28/20 17:34 Urine Bilirubin Negative (Negative) 04/28/20 17:34 Urine Urobilinogen Normal mg/dL (Less than 2) 04/28/20 17:34 Ur Leukocyte Esterase 25 Enoc/uL (Negative) A 04/28/20 17:34 Urine RBC 0-3 HPF (0-3) 04/28/20 17:34 Urine WBC 7-10 HPF (0-3) A 04/28/20 17:34 Ur Squamous Epith Cells None Seen HPF (0-3) 04/28/20 17:34 Urine Bacteria 3+ HPF (None Seen) A 04/28/20 17:34 B-Hydroxybutyrate 0.16 mmol/L (0.02-0.27) 04/28/20 16:49 Chest x-ray Status: report reviewed by ne Hospitalist H&P A/P (1) Right-sided chest pain Code(s): R07.9 - CHEST PAIN, UNSPECIFIED Status: Acute Assessment and Plan: Continue cardiac monitoring Trend troponins Give morphine 2 mg IV x 1 for pain NPO after midnight Plan for stress test in the AM Add-on TSH Repeat LFTs as well as lipase in the AM If further elevated, consider further work-up (hx of biliary dilation secondary to ?stone 07/2019) Continue daily Aspirin Will check left leg venous doppler (chronic leg swelling with varicose veins present) (2) Hypertension Code(s): I10 - ESSENTIAL (PRIMARY) HYPERTENSION Status: Chronic Assessment and Plan: Monitor BP Resume home medications as appropriate once verified (3) CKD (chronic kidney disease) Code(s): N18.9 - CHRONIC KIDNEY DISEASE, UNSPECIFIED Status: Chronic Assessment and Plan: Avoid nephrotoxic meds Monitor renal function (4) Diabetes type 2, controlled Code(s): E11.9 - TYPE 2 DIABETES MELLITUS WITHOUT COMPLICATIONS Status: Chronic Qualifiers: Diabetes mellitus assistant terminal manager insulin use: without retirement use Diabetes mellitus complication status: with kidney complications Diabetes mellitus complication detail: with chronic kidney disease Chronic kidney disease stage: stage 3 (moderate) Qualified Code(s): E11.22 - Type 2 diabetes mellitus with diabetic chronic kidney disease; N18.3 - Chronic kidney disease, stage 3 (moderate) Assessment and Plan: In light of renal function, manage with ISS only Accucheks ACHS (5) COPD (chronic obstructive pulmonary disease) Status: Chronic Assessment and Plan: Chronic and stable Monitor O2 sats (6) Tobacco abuse Code(s): Z72.0 - TOBACCO USE Status: Chronic Plan: GI Prophylaxis with famotidine CODE STATUS FULL Case discussed with attending who agrees with plan as above.
[2020-04-29 05:23] LABS: ALT (SGPT) 29 U/L (8-55); AST (SGOT) 54 U/L (5-34); Albumin 3.2 g/dL (3.4-4.8); Alkaline Phosphatase 68 U/L (40-110); Bilirubin, Direct 0.1 mg/dL (0.1-0.3); Bilirubin, Total 0.2 mg/dL (0.2-1.2); Cardiac Risk 5.7 (Less than 4.5); Cholesterol 246 mg/dl (< 200 Desired); HDL Cholesterol 43 mg/dL (>60 Neg Risk); LDL Cholesterol, Calculated 128 mg/dL; Lipase 101 U/L (8-78); Protein, Total 5.9 g/dL (5.8-8.1); Triglycerides 376 mg/dL (Less than 150)
[2020-04-29 05:25] VITALS: BMI 30.8
[2020-04-29] MEDS: Nitroglycerin 2% Ointment 1 INCH/1 GM Packet TOP SCH (06:59)
--- NOTE | 2020-04-29 07:42 | ULT ---
EXAM: Left lower extremity venous duplex: Deep veins evaluated with color Doppler, spectral analysis, and compression. INDICATIONS: Left lower extremity pain and edema. FINDINGS: Deep veins interrogated include common femoral vein, femoral vein, popliteal vein, and post erior tibial vein. These veins show normal compression and blood flow. No evidence of DVT. IMPRESSION: Negative Left venous duplex exam.
[2020-04-29] MEDS ORDERED: Senokot S 8.6-50 MG TAB PO PRN (08:14)
[2020-04-29] MEDS ORDERED: Bisacodyl 5 MG TAB PO PRN (08:14)
[2020-04-29] MEDS ORDERED: hydrALAZINE 20 MG/ML VIAL SLOW IVP PRN (08:14)
[2020-04-29] MEDS ORDERED: Cepastat Lozenges 1 LOZ PO PRN (08:14)
[2020-04-29] MEDS ORDERED: Sodium Chloride 0.65% Nasal 44 ML BOT EA NARE PRN (08:14)
[2020-04-29] MEDS ORDERED: GUAIFENESIN SF SOLN 200 MG/10 ML UDCUP PO PRN (08:14)
[2020-04-29] MEDS ORDERED: HYDROcodone/Acetaminophen 5/325 mg Tablet PO PRN (08:14)
[2020-04-29] MEDS ORDERED: Zolpidem Tartrate 5 MG TAB PO PRN (08:14)
[2020-04-29] MEDS ORDERED: Calcium Carbonate 500 MG ChewTAB PO PRN (08:14)
[2020-04-29] MEDS ORDERED: Ondansetron PF 4 MG/2 ML Vial IVP PRN (08:14)
[2020-04-29] MEDS ORDERED: Ondansetron ODT 4 MG TAB PO PRN (08:14)
[2020-04-29] MEDS ORDERED: HumaLOG 300 UNITS/3 ML VIAL SC PRN ×2 (08:14)
[2020-04-29] MEDS ORDERED: Loperamide HCl 2 MG CAP PO PRN (08:14)
[2020-04-29] MEDS ORDERED: Loratadine 10 MG TAB PO PRN (08:14)
[2020-04-29] MEDS ORDERED: Aspirin Chewable 81 MG TAB PO SCH (09:00)
[2020-04-29] MEDS ORDERED: glipiZIDE 10 MG TAB PO SCH (09:00)
[2020-04-29] MEDS ORDERED: Gabapentin 300 MG CAP PO SCH ×2 (09:00)
[2020-04-29] MEDS ORDERED: Mirtazapine 15 MG TAB PO SCH (09:00)
[2020-04-29] MEDS ORDERED: Regadenoson 0.4 MG/5 ML SYRINGE ONE (09:28)
--- NOTE | 2020-04-29 11:17 | PDOC.HOSPP ---
- Subjective Encounter Date: 04/29/20 Encounter Time: 10:30 Subjective: Patient seen and examined. No new complaints. No overnight events, spoke with the patient by using language line #[id number] - Objective Vital Signs & Weight: Vital Signs (12 hours) Temp Pulse Resp BP BP Pulse Ox 04/29/20 07:30 98.1 F 66 17 109/54 L 96 04/29/20 06:00 97.8 F 64 16 103/51 L 96 04/29/20 00:58 94 L 04/29/20 00:12 98.4 F 78 18 162/69 H 95 Weight Weight 152 lb 8 oz Result Diagrams: 04/28/20 16:39 04/28/20 16:39 Additional Labs: Accuchecks 04/29/20 04/28/20 04/28/20 06:11 21:39 17:43 POC Glucose 210 H 384 H 308 H Radiology Reviewed by me: Yes EKG Reviewed by me: Yes Hospitalist ROS - Review of Systems ENT: denies: ear pain, ear discharge, nose pain, nose discharge, nose cj estion, mouth pain, mouth swelling, throat pain, throat swelling, other Respiratory: denies: cough, dry, shortness of breath, hemoptysis, SOB with excertion, pleuritic pain, sputum, wheezing, other Cardiovascular: denies: chest pain, palpitations, orthopnea, paroxysmal noc. dyspnea, edema, light headedness, other Gastrointestinal: denies: nausea, vomiting, abdominal pain, diarrhea, constipation, melena, hematochezia, other Genitourinary: denies: dysuria, frequency, incontinence, hematuria, retention, other Musculoskeletal: denies: neck pain, shoulder pain, arm pain, back pain, hand pain, leg pain, foot pain, other Hospitalist Exam Vitals: Vital Signs (12 hours) Temp Pulse Resp BP BP Pulse Ox 04/29/20 07:30 98.1 F 66 17 109/54 L 96 04/29/20 06:00 97.8 F 64 16 103/51 L 96 04/29/20 00:58 94 L 04/29/20 00:12 98.4 F 78 18 162/69 H 95 Weight Weight 152 lb 8 oz General Appearance: NAD, awake alert Eye: PERRL, anicteric sclera ENT: normocephalic atraumatic, no oropharyngeal lesions Neck: supple, symmetric, no JVD, no thyromegaly Heart: RRR, no murmur, no gallops, no rubs Respiratory: no wheezes, no rales, no ronchi Gastrointestinal: soft, non-tender, non-distended, normal bowel sounds Extremities: no clubbing, no edema Skin: no lesions, no rashes Neurological: no focal deficits Musculoskeletal: normal tone, normal strength Psychiatric: normal affect, normal behavior Hosp A/P (1) Chest pain Code(s): R07.9 - CHEST PAIN, UNSPECIFIED Status: Acute (2) COPD (chronic obstructive pulmonary disease) Status: Chronic (3) CKD (chronic kidney disease), stage III Status: Chronic (4) Diabetes type 2, controlled Code(s): E11.9 - TYPE 2 DIABETES MELLITUS WITHOUT COMPLICATIONS Status: [facility] on Qualifiers: Diabetes mellitus assisted insulin use: without assisted use Diabetes mellitus complication status: with kidney complications Diabetes mellitus complication detail: with chronic kidney disease Chronic kidney disease stage: stage 3 (moderate) Qualified Code(s): E11.22 - Type 2 diabetes mellitus with diabetic chronic kidney disease; N18.3 - Chronic kidney disease, stage 3 (moderate) (5) Hypertension Code(s): I10 - ESSENTIAL (PRIMARY) HYPERTENSION Status: Chronic (6) Tobacco abuse Code(s): Z72.0 - TOBACCO USE Status: Chronic - Plan old records reviewed/req Plan for stress test today If stress test is negative then will consider discharge Plan of care discussed with the patient by using language line Continue current medication
--- NOTE | 2020-04-29 11:19 | PDOC.DS.DS ---
Provider Date of Admission: 04/28/20 19:23 Date of Discharge: 04/29/20 Admitting Provider: Everette Chopra MD Primary Care Physician: Jonnie Nolan Course Hospital Course: 79-year-old woman, Italian-speaking only, who presents to the emergency department with complaints of severe right-sided chest pain that started ye sterday evening. The patient apparently has had intermittent chest pain for the last week which has been progressively increasing in terms of intensity and lasting longer than it did initially. The evening the pain has been constant and fluctuating in severity between 09/06 and 12/07. Her daughter gave her naproxen yesterday evening with minimal improvement in her pain. States her discomfort only eased to a 7 out of 10 after she was given aspirin and nitro paste in the emergency department. She states when the pain is very severe the right side of her chest is tender right below her right breast. States it feels like a squeezing pain. At one point the pain was wrapping around her side towards the right side of her back. She denies any trauma, injuries or falls. No strenuous activity. States the pain has no relation to her level of activity and states she is mostly sedentary when it occurs. Denies any concurrent nausea, vomiting, diaphoresis, palpitations or lightheadedness. According to patient when the pain is at its worse it causes difficulty with her breathing and she becomes tachypneic. She has not noted any increased pain with deep inspiration. Denies any cough or hemoptysis. She has chronic swelling of the left lower extremity since having thrombophlebitis of the right lower leg years ago. Of note patient has had a CT of the abdomen and pelvis done in the past, July 2019, with findings of biliary distention and a common bile duct measuring 1.3 cm along with elevated liver function tests that were concerning for possible biliary obstruction. She was seen by GI and LFTs improved following IV fluids therefore she was recommended follow-up as an outpatient. EKG done in the emergency department showed a normal sinus rhythm without any ST changes or T wave abnormalities. She had a chest x-ray done that showed no radiographic evidence of acute cardiopulmonary process. Laboratory studies showed negative troponin. White blood count was 10.6, hemoglobin 11.3, hematocrit 32.8, platelets 309, neutrophils 63.8%. Sodium 134, potassium 4.6, BUN 31, creatinine 1.35, GFR 38, glucose 321, calcium 8.6, magnesium 2.0, total bilirubin 0.2, AST 11, ALT 16, alk phos 67, lipase 91. Urinalysis showed clear appearing urine with 100 protein, greater than 1000 glucose, trace blood, 25 leukocyte esterase, 7-10 white blood cells and 3+ bacteria. Nitrates negative. The patient received 324 mg of aspirin in the ER and 1 inch of Nitropaste applied. Patient was completely asymptomatic next day, she was doing relatively low blood pressure so we discontinued Nitropatch, patient underwent stress test, result is pending, If stress test negative then will consider discharging her home, patient will resume all her previous medication plan of care discussed by using language line #[id number] Stress test is negative. Lab Results: 04/28/20 16:39 04/28/20 16:39 Abnormal Lab Results - Last 48 hrs 04/28/20 16:39: Sodium 134 L, Carbon Dioxide 20 L, BUN 31 H, Creatinine 1.35 H, Lipase 91 H 04/28/20 16:39: RBC 3.60 L, Hgb 11.3 L, Hct 32.8 L, MCH 31.4 H, MPV 6.8 L, Neutrophils # 6.8 H, Monocytes # 0.8 H 04/28/20 17:34: Urine Protein 100 A, Urine Glucose (UA) >=1000 A, Urine Blood Trace A, Ur Leukocyte Esterase 25 A, Urine WBC 7-10 A, Urine Bacteria 3+ A 04/29/20 04:52: AST 54 H, Albumin 3.2 L, Triglycerides 376 H, Cholesterol 246 H, Lipase 101 H Vitals: Vital Signs (12 hours) Temp Pulse Resp BP BP Pulse Ox 04/29/20 07:30 98.1 F 66 17 109/54 L 96 04/29/20 06:00 97.8 F 64 16 103/51 L 96 04/29/20 00:58 94 L 04/29/20 00:12 98.4 F 78 18 162/69 H 95 Weight Weight 152 lb 8 oz Physical Exam: The patient was seen and examined on the day of discharge. General Appearance: NAD, awake alert Eye: PERRL, anicteric sclera ENT: normocephalic atraumatic, no oropharyngeal lesions Neck: supple, symmetric, no JVD, no thyromegaly Respiratory: no wheezes, no rales, no ronchi Cardiovascular: RRR, no murmur, no gallops, no rubs Gastrointestinal: non-tender, non-distended, normal bowel sounds Extremities: no clubbing, no edema Skin: normal turgor, no lesions Neurological: no focal deficits Musculoskeletal: normal tone, normal strength PSYCH: normal affect, normal behavior Problem (1) Chest pain Code(s): R07.9 - CHEST PAIN, UNSPECIFIED Status: Acute (2) COPD (chronic obstructive pulmonary disease) Status: Chronic (3) CKD (chronic kidney disease), stage III Status: Chronic (4) Diabetes type 2, controlled Code(s): E11.9 - TYPE 2 DIABETES MELLITUS WITHOUT COMPLICATIONS Status: Chronic Qualifiers: Diabetes mellitus half-way insulin use: without terminal supervisor use Diabetes mellitus complication status: with kidney complications Diabetes mellitus complication detail: with chronic kidney disease Chronic kidney disease stage: stage 3 (moderate) Qualified Code(s): E11.22 - Type 2 diabetes mellitus with diabetic chronic kidney disease; N18.30 - Chronic kidney disease, stage 3 unspecified (5) Hypertension Code(s): I10 - ESSENTIAL (PRIMARY) HYPERTENSION Status: Chronic (6) Tobacco abuse Code(s): Z72.0 - TOBACCO USE Status: Chronic Plan Home Medications: Medication Instructions Recorded Confirmed Type Amlodipine [Norvasc] 10 mg PO DAILY 08/01/19 08/01/19 History Mirtazapine 15 mg PO DAILY 08/01/19 08/01/19 History glipiZIDE [Glipizide] 10 mg PO BID 08/01/19 04/29/20 History hydrALAZINE [Apresoline] 25 mg PO TID #90 tab 08/04/19 Rx Gabapentin [Neurontin] 1 cap PO BID 04/29/20 04/29/20 History Pravastatin Sodium [Pravachol] 20 mg PO HS 04/29/20 04/29/20 History Allergies: No Known Allergies Allergy (Verified 08/01/19 01:01) Referrals: Coni An RN QUALITY [[facility]] - 04/30/20 11:00 am (Por favor, recuerde llevar todas las botellas de medicamentos a la clnica, junto con todos los papeles de [facility]iel hospital[facility]. ) Disposition: HOME Quality CORE MEASURES:: N/A
--- NOTE | 2020-04-29 14:22 | NM ---
Nuclear medicine myocardial perfusion scan: 04/29/2020 COMPARISON: None HISTORY: Chest pain TECHNIQUE: SPECT imaging of the left ventricular myocardium obtained during stress and rest following the intravenous administration of 30 and 9.8mCi technetium 99 M labeled sestamibi respectively. FINDINGS: No discrete fixed or reversible defect. TID is 1.45. Left ventricular wall motion appears within normal limits. End-diastolic volume is 60 mL and end systolic volume is 15 mL. Left ventricular ejection fraction is estimated at 75%. This is likely artifactually elevated seconda ry to a low ESV. IMPRESSION: No discrete reversible defect. Normal left ventricular wall motion. Estimated LVEF of 75%.
[2020-04-29 16:36] VITALS: BP 157/70; TEMP 98.1
[2020-04-29 19:09] LABS: SARS-CoV-2 PCR by NAA Not Detected (NotDetected)
[2020-04-29] MEDS ORDERED: Pravastatin Sodium 20 MG TAB PO SCH (21:00)
[2020-04-29] MEDS ORDERED: Simvastatin 10 MG TAB PO SCH (21:00)
== END 2020-04-29 18:45 | disposition home or self-care (01) ==
LOC: ERS 15:43 → 3SE 19:23
PROVIDERS: ADMIT Student in an Organized Health Care Education/Training Program; ATTEND Internal Medicine
DX: R07.9 Chest pain, unspecified (principal); J44.9 Chronic obstructive pulmonary disease, unspecified; I12.9 Hypertensive chronic kidney disease with stage 1 through stage 4 chronic kidney disease, or unspecified chronic kidney disease; E11.22 Type 2 diabetes mellitus with diabetic chronic kidney disease; N18.30 Chronic kidney disease, stage 3 unspecified; F17.210 Nicotine dependence, cigarettes, uncomplicated; M19.90 Unspecified osteoarthritis, unspecified site; F32.9 Major depressive disorder, single episode, unspecified; M79.89 Other specified soft tissue disorders; Z79.84 Long term (current) use of oral hypoglycemic drugs; Z79.899 Other long term (current) drug therapy; Z20.822 Contact with and (suspected) exposure to COVID-19
CPT/HCPCS: 36415; 36416; 71045; 78452; 80053; 80061; 80076; 81003; 81015; 82010; 83690; 83735; 84484; 85025; 85379; 87635; 93005; 93017; 94760; 96374; A9500; G0378; J1815; J2270; J2785; U0003; U0005

== ENCOUNTER 2020-05-25 20:00 | Inpatient (IN) | payer MEDICAID, SELFPAY ==
[2020-05-25 20:28] LABS: #Basophils 0.1 thou/uL (0.0-0.2); #Eosinphils 0.2 thou/uL (0.0-0.7); #Lymphocytes 2.8 thou/uL (1.20-3.40); #Monocytes 0.6 thou/uL (0.11-0.59); #Neutrophils 4.7 thou/uL (1.40-6.50); %Basophils 0.8 % (0.0-1.0); %Eosinophils 2.8 % (0.0-10.0); %Lymphocytes 33.2 % (21.0-51.0); %Monocytes 7.2 % (0.0-10.0); Hemoglobin 12.1 g/dL (12.0-16.0); Mean Corpuscular HGB CONC 34.7 g/dL (32.0-36.0); Mean Corpuscular Hemoglobin 31.4 pg (27.0-31.0); Mean Corpuscular Volume 90.4 fL (78.0-98.0); Mean Platelet Volume 6.9 fL (7.4-10.4); Platelet Count 391 thou/uL (130-400); RBC Distribution Width 12.5 % (11.5-14.5); Red Blood Cell (RBC) Count 3.86 mill/uL (4.20-5.40); White Blood Cell (WBC) Count 8.4 thou/uL (4.8-10.8)
[2020-05-25 20:51] LABS: ALT (SGPT) 9 U/L (8-55); AST (SGOT) 12 U/L (5-34); Albumin 3.8 g/dL (3.4-4.8); Alkaline Phosphatase 87 U/L (40-110); Anion Gap 18 mmol/L (10-20); BUN (Urea Nitrogen) 19 mg/dL (9.8-20.1); Bilirubin, Total 0.3 mg/dL (0.2-1.2); Calc. Creatinine Clearance 0 mL/min (70-130); Calcium 9.6 mg/dL (7.8-10.44); Carbon Dioxide 18 mmol/L (23-31); Chloride 104 mmol/L (98-107); Globulin 3.4 g/dL (2.4-3.5); Glucose 208 mg/dL (83-110); Lipase 86 U/L (8-78); Potassium 4.1 mmol/L (3.5-5.1); Protein, Total 7.2 g/dL (5.8-8.1); Sodium 136 mmol/L (136-145)
[2020-05-25 21:57] LABS: Bacteria/HPF 4+ HPF (None Seen); Bilirubin Negative (Negative); Blood, Urine Trace (Negative); Clarity Turbid (Clear); Glucose, Urine (Dipstick) 50 mg/dL (Negative); Ketone, Urine Negative (Negative); Leukocyte 500 Leu/uL (Negative); Nitrite Negative (Negative); Protein, Urine (Dipstick) 30 mg/dL (Neg-Trace); Specific Gravity, Urine 1.003 (1.002-1.036); Squamous Epithelial 0-3 HPF (0-3); Urobilinogen Normal mg/dL (Less than 2); WBC/HPF Greater than 50 HPF (0-3)
[2020-05-25] MEDS ORDERED: cefTRIAXone\\ROCEPHIN 2 GM VIAL ONE (23:12)
[2020-05-26 02:07] VITALS: BMI 27.1
[2020-05-26] MEDS ORDERED: Dextrose 5% in Water 1,000 ML IV PRN (02:40)
[2020-05-26] MEDS ORDERED: Dextrose 50% Abboject 50 ML SYRINGE SLOW IVP PRN (02:40)
[2020-05-26] MEDS: cefTRIAXone\\ROCEPHIN 1 GM in Sodium Chloride 0.9% 100 ML IVPB SCH (03:52)
[2020-05-26 04:10] LABS: SARS-CoV-2 PCR by NAA Not Detected (NotDetected)
[2020-05-26 05:26] LABS: #Basophils 0.1 thou/uL (0.0-0.2); #Eosinphils 0.3 thou/uL (0.0-0.7); #Lymphocytes 2.8 thou/uL (1.20-3.40); #Monocytes 0.6 thou/uL (0.11-0.59); #Neutrophils 3.4 thou/uL (1.40-6.50); %Basophils 0.8 % (0.0-1.0); %Eosinophils 4.1 % (0.0-10.0); %Lymphocytes 38.8 % (21.0-51.0); %Monocytes 8.4 % (0.0-10.0); %Neutrophils 47.8 % (42.0-75.0); Hemoglobin 10.3 g/dL (12.0-16.0); Mean Corpuscular HGB CONC 32.8 g/dL (32.0-36.0); Mean Corpuscular Volume 91.4 fL (78.0-98.0); Mean Platelet Volume 6.8 fL (7.4-10.4); Platelet Count 341 thou/uL (130-400); RBC Distribution Width 12.5 % (11.5-14.5); Red Blood Cell (RBC) Count 3.43 mill/uL (4.20-5.40); White Blood Cell (WBC) Count 7.2 thou/uL (4.8-10.8)
[2020-05-26 05:32] LABS: Hemoglobin A1c 11.3 % (4.0-6.0)
[2020-05-26 05:42] LABS: Phosphorus 3.3 mg/dL (2.3-4.7)
[2020-05-26 05:44] LABS: Anion Gap 13 mmol/L (10-20); BUN (Urea Nitrogen) 16 mg/dL (9.8-20.1); Calc. Creatinine Clearance 44 mL/min (70-130); Calcium 8.4 mg/dL (7.8-10.44); Carbon Dioxide 20 mmol/L (23-31); Chloride 111 mmol/L (98-107); Glucose 137 mg/dL (83-110); Sodium 140 mmol/L (136-145)
[2020-05-26] MEDS ORDERED: Aspirin 325 MG TAB PO SCH (07:45)
[2020-05-26] MEDS: Mirtazapine 15 MG TAB PO SCH (08:09)
[2020-05-26] MEDS: Gabapentin 300 MG CAP PO SCH ×2 (08:09→20:03)
[2020-05-26] MEDS: hydrALAZINE 25 MG TAB PO SCH ×3 (08:09→20:04)
[2020-05-26] MEDS: Amlodipine 10 MG TAB PO SCH (08:10)
[2020-05-26] MEDS: Nitroglycerin 2% Ointment 1 INCH/1 GM Packet TOP SCH ×2 (08:10→20:04)
[2020-05-26] MEDS: Enoxaparin Sodium 40 MG/0.4 ML SYRINGE SC SCH (08:10)
[2020-05-26 08:32] LABS: Lactic Acid 1.2 mmol/L (0.5-2.2)
[2020-05-26 08:51] LABS: Syphilis Antibody Nonreactive (Nonreactive); Syphilis Antibody Index 0.05 S/CO (<1.00 Non-Reactive)
[2020-05-26] MEDS ORDERED: Magnesium 2 GM/50 ML 2 GM in Premix Bag 1 BAG IVPB SCH (09:00)
[2020-05-26] MEDS: HumaLOG 300 UNITS/3 ML VIAL SC PRN ×3 (13:21→21:08)
[2020-05-26] MEDS ORDERED: Simvastatin 10 MG TAB PO SCH (21:00)
[2020-05-27] MEDS: cefTRIAXone\\ROCEPHIN 1 GM in Sodium Chloride 0.9% 100 ML IVPB SCH (02:25)
[2020-05-27] MEDS: HumaLOG 300 UNITS/3 ML VIAL SC PRN ×2 (05:56→13:00)
[2020-05-27 07:40] VITALS: BP 150/67; TEMP 97.6
[2020-05-27] MEDS: Amlodipine 10 MG TAB PO SCH (10:00)
[2020-05-27] MEDS: Mirtazapine 15 MG TAB PO SCH (10:00)
[2020-05-27] MEDS: Gabapentin 300 MG CAP PO SCH (10:01)
[2020-05-27] MEDS: hydrALAZINE 25 MG TAB PO SCH (10:03)
[2020-05-27] MEDS: Nitroglycerin 2% Ointment 1 INCH/1 GM Packet TOP SCH (10:03)
[2020-05-27] MEDS: Enoxaparin Sodium 40 MG/0.4 ML SYRINGE SC SCH (10:03)
== END 2020-05-27 15:40 | disposition home or self-care (01) | DRG 74 ==
LOC: ERS 20:00 → OBSVTOIN 05-26 00:06 → ONC 05-26 00:06
PROVIDERS: ADMIT Student in an Organized Health Care Education/Training Program; ATTEND Internal Medicine
DX: E11.40 Type 2 diabetes mellitus with diabetic neuropathy, unspecified (principal); N39.0 Urinary tract infection, site not specified; E11.65 Type 2 diabetes mellitus with hyperglycemia; E11.22 Type 2 diabetes mellitus with diabetic chronic kidney disease; I12.9 Hypertensive chronic kidney disease with stage 1 through stage 4 chronic kidney disease, or unspecified chronic kidney disease; R07.89 Other chest pain; M19.90 Unspecified osteoarthritis, unspecified site; Z20.822 Contact with and (suspected) exposure to COVID-19; Z90.49 Acquired absence of other specified parts of digestive tract
CPT/HCPCS: 36415; 36416; 70450; 71045; 80048; 80053; 81003; 81015; 82607; 82746; 83036; 83605; 83690; 83735; 83880; 84100; 84443; 84484; 85025; 85379; 86780; 87040; 87077; 87086; 87186; 87633; 87635; 93005; 93010; 93306; 94760; 96365; G0378; J0696; J1650; J1815; J3475; J3490; U0003; U0005

== ENCOUNTER 2020-08-09 21:55 | Observation (INO) | payer MEDICAID, SELFPAY ==
[2020-08-09 22:38] LABS: #Basophils 0.1 thou/uL (0.0-0.2); #Eosinphils 0.4 thou/uL (0.0-0.7); #Lymphocytes 2.7 thou/uL (1.20-3.40); #Monocytes 0.6 thou/uL (0.11-0.59); #Neutrophils 3.9 thou/uL (1.40-6.50); %Basophils 1.2 % (0.0-1.0); %Lymphocytes 35.6 % (21.0-51.0); %Monocytes 7.3 % (0.0-10.0); %Neutrophils 50.9 % (42.0-75.0); Hemoglobin 10.5 g/dL (12.0-16.0); Mean Corpuscular HGB CONC 33.1 g/dL (32.0-36.0); Mean Corpuscular Hemoglobin 29.3 pg (27.0-31.0); Mean Corpuscular Volume 88.5 fL (78.0-98.0); Mean Platelet Volume 6.8 fL (7.4-10.4); Platelet Count 316 thou/uL (130-400); Red Blood Cell (RBC) Count 3.58 mill/uL (4.20-5.40); White Blood Cell (WBC) Count 7.6 thou/uL (4.8-10.8)
[2020-08-09 23:31] LABS: ALT (SGPT) 10 U/L (8-55); AST (SGOT) 16 U/L (5-34); Albumin 3.5 g/dL (3.4-4.8); Alkaline Phosphatase 63 U/L (40-110); Anion Gap 16 mmol/L (10-20); BUN (Urea Nitrogen) 18 mg/dL (9.8-20.1); Bilirubin, Total 0.2 mg/dL (0.2-1.2); Calc. Creatinine Clearance 0 mL/min (70-130); Calcium 8.7 mg/dL (7.8-10.44); Carbon Dioxide 17 mmol/L (23-31); Chloride 104 mmol/L (98-107); Globulin 2.7 g/dL (2.4-3.5); Glucose 261 mg/dL (83-110); Lipase 77 U/L (8-78); Potassium 4.3 mmol/L (3.5-5.1); Protein, Total 6.2 g/dL (5.8-8.1); Sodium 133 mmol/L (136-145)
[2020-08-09] MEDS ORDERED: Nitroglycerin 2% Ointment 1 INCH/1 GM Packet ONE (23:49)
[2020-08-09] MEDS ORDERED: hydrALAZINE 20 MG/ML VIAL ONE (23:49)
[2020-08-09] MEDS ORDERED: Aspirin Chewable 81 MG TAB ONE (23:49)
[2020-08-10] MEDS ORDERED: Acetaminophen 500 MG TAB ONE (00:15)
[2020-08-10] MEDS ORDERED: Senokot S 8.6-50 MG TAB PO PRN (00:49)
[2020-08-10] MEDS ORDERED: Acetaminophen 325 MG TAB PO PRN (00:49)
[2020-08-10] MEDS ORDERED: Dextrose 5% in Water 1,000 ML IV PRN (00:56)
[2020-08-10] MEDS ORDERED: HumaLOG 300 UNITS/3 ML VIAL SC PRN ×2 (00:56)
[2020-08-10] MEDS ORDERED: Dextrose 50% Abboject 50 ML SYRINGE SLOW IVP PRN (00:56)
[2020-08-10] MEDS ORDERED: hydrALAZINE 20 MG/ML VIAL SLOW IVP PRN (00:57)
[2020-08-10] MEDS ORDERED: Nitroglycerin 0.4 MG TAB (25 Tab Bottle) SL PRN (00:57)
[2020-08-10] MEDS ORDERED: Sodium Chloride 0.9% 1,000 ML IV SCH (01:00)
[2020-08-10 01:47] VITALS: BMI 28.5
[2020-08-10 01:56] LABS: Troponin I Less than 0.010 ng/mL (< 0.028)
[2020-08-10 02:34] LABS: Bilirubin Negative (Negative); Blood, Urine Negative (Negative); Glucose, Urine (Dipstick) 500 mg/dL (Negative); Ketone, Urine Negative (Negative); Leukocyte Negative (Negative); Nitrite Negative (Negative); Protein, Urine (Dipstick) Negative (Neg-Trace); Urobilinogen 0.2 mg/dL (Less than 2); pH, Urine 6.5 (5.0-9.0)
[2020-08-10 02:36] LABS: Clarity Clear (Clear)
[2020-08-10] MEDS: Lidocaine 5% Patch TD SCH (02:37)
[2020-08-10] MEDS: Heparin 5,000 UNITS/ML VIAL SC SCH ×3 (02:37→18:29)
[2020-08-10 02:38] LABS: Bacteria/HPF 1+ HPF (None Seen); RBC/HPF 0-3 HPF (0-3); Specific Gravity, Urine 1.006 (1.002-1.036)
[2020-08-10 05:12] LABS: #Basophils 0.1 thou/uL (0.0-0.2); #Eosinphils 0.5 thou/uL (0.0-0.7); #Lymphocytes 3.5 thou/uL (1.20-3.40); #Monocytes 0.7 thou/uL (0.11-0.59); #Neutrophils 3.9 thou/uL (1.40-6.50); %Basophils 0.9 % (0.0-1.0); %Eosinophils 5.3 % (0.0-10.0); %Monocytes 8.5 % (0.0-10.0); %Neutrophils 45.3 % (42.0-75.0); Hemoglobin 10.3 g/dL (12.0-16.0); Mean Corpuscular HGB CONC 32.6 g/dL (32.0-36.0); Mean Corpuscular Hemoglobin 28.7 pg (27.0-31.0); Mean Corpuscular Volume 88.2 fL (78.0-98.0); Mean Platelet Volume 6.8 fL (7.4-10.4); Platelet Count 337 thou/uL (130-400); RBC Distribution Width 13.1 % (11.5-14.5); Red Blood Cell (RBC) Count 3.59 mill/uL (4.20-5.40); White Blood Cell (WBC) Count 8.7 thou/uL (4.8-10.8)
[2020-08-10 05:36] LABS: ALT (SGPT) 10 U/L (8-55); AST (SGOT) 16 U/L (5-34); Albumin 3.3 g/dL (3.4-4.8); Alkaline Phosphatase 61 U/L (40-110); Anion Gap 15 mmol/L (10-20); BUN (Urea Nitrogen) 19 mg/dL (9.8-20.1); Bilirubin, Total 0.2 mg/dL (0.2-1.2); Calc. Creatinine Clearance 31 mL/min (70-130); Calcium 8.8 mg/dL (7.8-10.44); Carbon Dioxide 18 mmol/L (23-31); Cardiac Risk 5.3 (Less than 4.5); Chloride 110 mmol/L (98-107); Cholesterol 171 mg/dl (< 200 Desired); Glucose 105 mg/dL (83-110); HDL Cholesterol 32 mg/dL (>60 Neg Risk); LDL Cholesterol, Calculated 90 mg/dL; Magnesium 2.3 mg/dL (1.6-2.6); Potassium 3.8 mmol/L (3.5-5.1); Protein, Total 6.3 g/dL (5.8-8.1); Sodium 139 mmol/L (136-145); Triglycerides 245 mg/dL (Less than 150)
[2020-08-10 05:39] LABS: Troponin I Less than 0.010 ng/mL (< 0.028)
[2020-08-10] MEDS: Aspirin 325 mg Enteric Coated Tablet PO SCH (08:59)
[2020-08-10] MEDS ORDERED: Enoxaparin Sodium 40 MG/0.4 ML SYRINGE SC SCH (09:00)
[2020-08-10] MEDS ORDERED: Heparin 5,000 UNITS/ML VIAL SC SCH (09:00)
[2020-08-10] MEDS ORDERED: hydrALAZINE 10 MG TAB PO SCH (09:00)
[2020-08-10 09:29] LABS: SARS-CoV-2 NAA Rapid Test Not Detected (NotDetected)
[2020-08-10] MEDS ORDERED: Transdermal Patch Removal TOP SCH (15:00)
[2020-08-10] MEDS: hydrALAZINE 25 MG TAB PO SCH (20:36)
[2020-08-10] MEDS ORDERED: Simvastatin 10 MG TAB PO SCH (21:00)
[2020-08-10] MEDS ORDERED: Famotidine 20 MG TAB PO SCH (21:00)
[2020-08-10] MEDS ORDERED: Mirtazapine 15 MG TAB PO SCH (21:00)
[2020-08-10] MEDS ORDERED: Amlodipine 5 MG TAB PO SCH (21:00)
[2020-08-11 03:15] VITALS: TEMP 98.1
[2020-08-11] MEDS: Heparin 5,000 UNITS/ML VIAL SC SCH ×2 (03:16→11:34)
[2020-08-11] MEDS: Lidocaine 5% Patch TD SCH (03:52)
[2020-08-11] MEDS: Aspirin 325 mg Enteric Coated Tablet PO SCH (09:30)
[2020-08-11] MEDS: hydrALAZINE 25 MG TAB PO SCH (09:30)
[2020-08-11 11:44] VITALS: BP 154/72
== END 2020-08-11 14:15 | disposition home or self-care (01) ==
LOC: ERS 21:55 → 2SW 08-10 00:12
PROVIDERS: ADMIT Internal Medicine; ATTEND Family Medicine
DX: R07.89 Other chest pain (principal); I12.9 Hypertensive chronic kidney disease with stage 1 through stage 4 chronic kidney disease, or unspecified chronic kidney disease; E11.22 Type 2 diabetes mellitus with diabetic chronic kidney disease; N18.9 Chronic kidney disease, unspecified; N17.9 Acute kidney failure, unspecified; E78.5 Hyperlipidemia, unspecified; F17.210 Nicotine dependence, cigarettes, uncomplicated; Z79.4 Long term (current) use of insulin; Z79.899 Other long term (current) drug therapy; Z20.822 Contact with and (suspected) exposure to COVID-19
CPT/HCPCS: 36415; 36416; 71045; 78451; 80053; 80061; 81001; 83690; 83735; 83880; 84443; 84484; 85025; 85379; 93005; 96372; 96374; A9540; G0378; J0360; J1644; J1815; U0002; U0005

== ENCOUNTER 2020-08-17 13:08 | Emergency (ER) | payer MEDICAID ==
[2020-08-17] MEDS ORDERED: Morphine 4 MG/ML VIAL ONE (13:50)
[2020-08-17] MEDS ORDERED: Ondansetron ODT 4 MG TAB ONE (13:51)
[2020-08-17 14:49] LABS: Bilirubin Negative (Negative); Blood, Urine Negative (Negative); Clarity Clear (Clear); Glucose, Urine (Dipstick) 150 mg/dL (Negative); Ketone, Urine Negative (Negative); Leukocyte Negative Leu/uL (Negative); Nitrite Negative (Negative); Protein, Urine (Dipstick) 10 mg/dL (Neg-Trace); Specific Gravity, Urine 1.006 (1.002-1.036); Urobilinogen Normal mg/dL (Less than 2); pH, Urine 7.5 (5.0-9.0)
[2020-08-17] MEDS ORDERED: Famotidine 20 MG TAB ONE (15:07)
[2020-08-17 15:34] LABS: #Basophils 0.1 thou/uL (0.0-0.2); #Eosinphils 0.4 thou/uL (0.0-0.7); #Lymphocytes 2.2 thou/uL (1.20-3.40); #Monocytes 0.6 thou/uL (0.11-0.59); #Neutrophils 3.7 thou/uL (1.40-6.50); %Basophils 1.2 % (0.0-1.0); %Eosinophils 5.4 % (0.0-10.0); %Lymphocytes 31.2 % (21.0-51.0); %Monocytes 8.6 % (0.0-10.0); %Neutrophils 53.5 % (42.0-75.0); Hemoglobin 11.2 g/dL (12.0-16.0); Mean Corpuscular HGB CONC 32.7 g/dL (32.0-36.0); Mean Corpuscular Hemoglobin 29.1 pg (27.0-31.0); Platelet Count 352 thou/uL (130-400); RBC Distribution Width 13.6 % (11.5-14.5); Red Blood Cell (RBC) Count 3.86 mill/uL (4.20-5.40); White Blood Cell (WBC) Count 6.9 thou/uL (4.8-10.8)
[2020-08-17 15:54] LABS: ALT (SGPT) 11 U/L (8-55); AST (SGOT) 16 U/L (5-34); Albumin 3.6 g/dL (3.4-4.8); Alkaline Phosphatase 65 U/L (40-110); Anion Gap 15 mmol/L (10-20); BUN (Urea Nitrogen) 27 mg/dL (9.8-20.1); Bilirubin, Total 0.3 mg/dL (0.2-1.2); Calc. Creatinine Clearance 0 mL/min (70-130); Calcium 9.2 mg/dL (7.8-10.44); Carbon Dioxide 20 mmol/L (23-31); Chloride 109 mmol/L (98-107); Globulin 3.3 g/dL (2.4-3.5); Glucose 101 mg/dL (83-110); Lipase 37 U/L (8-78); Potassium 4.1 mmol/L (3.5-5.1); Protein, Total 6.9 g/dL (5.8-8.1); Sodium 140 mmol/L (136-145)
== END 2020-08-17 16:20 | disposition home or self-care (01) ==
LOC: ERS 13:08
DX: R10.11 Right upper quadrant pain (principal); E11.9 Type 2 diabetes mellitus without complications; I10 Essential (primary) hypertension; M19.90 Unspecified osteoarthritis, unspecified site; F17.210 Nicotine dependence, cigarettes, uncomplicated; Z79.899 Other long term (current) drug therapy
CPT/HCPCS: 36415; 71045; 74176; 80053; 81003; 83690; 84484; 85025; 93005; J2270; Q0162

== ENCOUNTER 2020-11-25 00:16 | Emergency (ER) | payer MEDICAID ==
[2020-11-25 01:36] LABS: #Basophils 0.1 thou/uL (0.0-0.2); #Eosinphils 0.6 thou/uL (0.0-0.7); #Monocytes 0.9 thou/uL (0.11-0.59); #Neutrophils 4.6 thou/uL (1.40-6.50); %Basophils 0.9 % (0.0-1.0); %Eosinophils 6.8 % (0.0-10.0); %Lymphocytes 32.9 % (21.0-51.0); %Monocytes 9.4 % (0.0-10.0); %Neutrophils 50.1 % (42.0-75.0); Hemoglobin 11.4 g/dL (12.0-16.0); Mean Corpuscular HGB CONC 33.9 g/dL (32.0-36.0); Mean Corpuscular Hemoglobin 29.4 pg (27.0-31.0); Mean Corpuscular Volume 86.5 fL (78.0-98.0); Mean Platelet Volume 6.8 fL (7.4-10.4); Platelet Count 280 thou/uL (130-400); RBC Distribution Width 14.5 % (11.5-14.5); Red Blood Cell (RBC) Count 3.89 mill/uL (4.20-5.40); White Blood Cell (WBC) Count 9.2 thou/uL (4.8-10.8)
[2020-11-25 01:59] LABS: ALT (SGPT) 10 U/L (8-55); AST (SGOT) 15 U/L (5-34); Albumin 3.3 g/dL (3.4-4.8); Alkaline Phosphatase 75 U/L (40-110); Anion Gap 10 mmol/L (10-20); BUN (Urea Nitrogen) 21 mg/dL (9.8-20.1); Bilirubin, Total Less than 0.2 mg/dL (0.2-1.2); Calc. Creatinine Clearance 0 mL/min (70-130); Calcium 8.7 mg/dL (7.8-10.44); Carbon Dioxide 24 mmol/L (23-31); Chloride 104 mmol/L (98-107); Globulin 2.8 g/dL (2.4-3.5); Glucose 133 mg/dL (83-110); Potassium 4.3 mmol/L (3.5-5.1); Protein, Total 6.1 g/dL (5.8-8.1); Sodium 134 mmol/L (136-145)
[2020-11-25] MEDS ORDERED: Ondansetron PF 4 MG/2 ML Vial ONE (03:38)
[2020-11-25] MEDS ORDERED: Morphine 2 MG/ML VIAL ONE (03:38)
== END 2020-11-25 04:07 | disposition home or self-care (01) ==
LOC: ERS 00:16
DX: B02.9 Zoster without complications (principal); E11.9 Type 2 diabetes mellitus without complications; I10 Essential (primary) hypertension; M19.90 Unspecified osteoarthritis, unspecified site; F17.210 Nicotine dependence, cigarettes, uncomplicated
CPT/HCPCS: 74176; 76705; 80053; 83690; 85025; 96374; 96375; J2270; J2405

== ENCOUNTER 2021-09-29 02:18 | Observation (INO) | payer MEDICAID, SELFPAY ==
[2021-09-29] MEDS ORDERED: Ondansetron PF 4 MG/2 ML Vial ONE (02:51)
[2021-09-29] MEDS ORDERED: Morphine 4 MG/ML VIAL ONE (02:51)
[2021-09-29 03:12] LABS: #Eosinphils 0.4 thou/uL (0.0-0.7); #Lymphocytes 2.5 thou/uL (1.20-3.40); #Monocytes 0.8 thou/uL (0.11-0.59); #Neutrophils 6.5 thou/uL (1.40-6.50); %Basophils 0.5 % (0.0-1.0); %Eosinophils 3.8 % (0.0-10.0); %Lymphocytes 24.4 % (21.0-51.0); %Monocytes 8.2 % (0.0-10.0); %Neutrophils 63.1 % (42.0-75.0); Hemoglobin 10.3 g/dL (12.0-16.0); Mean Corpuscular HGB CONC 34.3 g/dL (32.0-36.0); Mean Corpuscular Hemoglobin 30.8 pg (27.0-31.0); Mean Corpuscular Volume 89.9 fL (78.0-98.0); Mean Platelet Volume 6.8 fL (7.4-10.4); Platelet Count 306 thou/uL (130-400); RBC Distribution Width 13.7 % (11.5-14.5); Red Blood Cell (RBC) Count 3.36 mill/uL (4.20-5.40); White Blood Cell (WBC) Count 10.2 thou/uL (4.8-10.8)
[2021-09-29 03:34] LABS: ALT (SGPT) 13 U/L (8-55); AST (SGOT) 20 U/L (5-34); Albumin 3.2 g/dL (3.4-4.8); Alkaline Phosphatase 60 U/L (40-110); Anion Gap 14 mmol/L (10-20); BUN (Urea Nitrogen) 31 mg/dL (9.8-20.1); Bilirubin, Total 0.2 mg/dL (0.2-1.2); Calc. Creatinine Clearance 0 mL/min (70-130); Calcium 8.5 mg/dL (7.8-10.44); Carbon Dioxide 20 mmol/L (23-31); Chloride 108 mmol/L (98-107); Estimated GFR 27; Globulin 2.7 g/dL (2.4-3.5); Glucose 129 mg/dL (83-110); Lipase 41 U/L (8-78); Potassium 4.3 mmol/L (3.5-5.1); Protein, Total 5.9 g/dL (5.8-8.1); Sodium 138 mmol/L (136-145)
[2021-09-29 04:45] LABS: Bacteria/HPF 4+ HPF (None Seen); Bilirubin Negative (Negative); Blood, Urine Trace (Negative); Clarity Clear (Clear); Glucose, Urine (Dipstick) Normal (Negative); Ketone, Urine Negative (Negative); Leukocyte 250 Leu/uL (Negative); Nitrite Negative (Negative); Protein, Urine (Dipstick) 70 mg/dL (Neg-Trace); RBC/HPF 0-3 HPF (0-3); Specific Gravity, Urine 1.008 (1.002-1.036); Squamous Epithelial 0-3 HPF (0-3); Urobilinogen Normal mg/dL (Less than 2)
[2021-09-29] MEDS ORDERED: cefTRIAXone\\ROCEPHIN 1 GM VIAL ONE (05:10)
[2021-09-29] MEDS ORDERED: Aspirin Chewable 81 MG TAB ONE (05:10)
[2021-09-29 07:38] LABS: SARS-CoV-2 NAA Rapid Test Not Detected (NotDetected)
[2021-09-29] MEDS ORDERED: Dextrose 5% in Water 1,000 ML IV PRN (08:48)
[2021-09-29] MEDS ORDERED: HumaLOG 300 UNITS/3 ML VIAL SC PRN ×2 (08:48)
[2021-09-29] MEDS ORDERED: Ondansetron ODT 4 MG TAB PO PRN (08:48)
[2021-09-29] MEDS ORDERED: Dextrose 50% Abboject 50 ML SYRINGE SLOW IVP PRN (08:48)
[2021-09-29 10:01] VITALS: BMI 26.4
[2021-09-29] MEDS: hydrALAZINE 20 MG/ML VIAL SLOW IVP PRN (10:18)
[2021-09-29] MEDS: Heparin 5,000 UNITS/ML VIAL SC SCH ×3 (10:18→20:10)
[2021-09-29] MEDS: Ondansetron PF 4 MG/2 ML Vial IVP PRN (10:18)
[2021-09-29] MEDS: Sodium Chloride 0.9% 1,000 ML IV SCH (10:19)
[2021-09-29] MEDS: Acetaminophen 325 MG TAB PO PRN ×2 (10:19→20:10)
[2021-09-29] MEDS ORDERED: Amlodipine 5 MG TAB PO SCH (10:45)
[2021-09-30] MEDS: Sodium Chloride 0.9% 1,000 ML IV SCH ×2 (02:11→11:53)
[2021-09-30] MEDS ORDERED: cefTRIAXone\\ROCEPHIN 1 GM in Sodium Chloride 0.9% 100 ML IVPB SCH (06:00)
[2021-09-30 06:50] LABS: #Eosinphils 0.6 thou/uL (0.0-0.7); #Lymphocytes 2.1 thou/uL (1.20-3.40); #Monocytes 0.6 thou/uL (0.11-0.59); #Neutrophils 3.3 thou/uL (1.40-6.50); %Basophils 0.7 % (0.0-1.0); %Eosinophils 8.7 % (0.0-10.0); %Lymphocytes 31.4 % (21.0-51.0); %Monocytes 8.7 % (0.0-10.0); %Neutrophils 50.5 % (42.0-75.0); Hemoglobin 9.8 g/dL (12.0-16.0); Mean Corpuscular HGB CONC 33.6 g/dL (32.0-36.0); Mean Corpuscular Hemoglobin 30.5 pg (27.0-31.0); Mean Platelet Volume 7.3 fL (7.4-10.4); Platelet Count 277 thou/uL (130-400); RBC Distribution Width 13.5 % (11.5-14.5); White Blood Cell (WBC) Count 6.6 thou/uL (4.8-10.8)
[2021-09-30 07:09] LABS: Anion Gap 10 mmol/L (10-20); BUN (Urea Nitrogen) 24 mg/dL (9.8-20.1); Calc. Creatinine Clearance 27 mL/min (70-130); Calcium 8.3 mg/dL (7.8-10.44); Carbon Dioxide 23 mmol/L (23-31); Chloride 112 mmol/L (98-107); Estimated GFR 28; Glucose 135 mg/dL (83-110); Potassium 4.6 mmol/L (3.5-5.1); Sodium 140 mmol/L (136-145)
[2021-09-30] MEDS: hydrALAZINE 20 MG/ML VIAL SLOW IVP PRN (08:35)
[2021-09-30] MEDS: Ondansetron PF 4 MG/2 ML Vial IVP PRN (08:35)
[2021-09-30] MEDS: Heparin 5,000 UNITS/ML VIAL SC SCH ×2 (08:35→15:05)
[2021-09-30] MEDS ORDERED: Amlodipine 5 MG TAB PO SCH (09:00)
[2021-09-30 11:41] VITALS: BP 169/79; TEMP 98.4
== END 2021-09-30 15:17 | disposition home or self-care (01) ==
LOC: ERS 02:18 → 2NO 06:16
PROVIDERS: ADMIT Internal Medicine; ATTEND Internal Medicine
DX: R10.13 Epigastric pain (principal); N30.00 Acute cystitis without hematuria; B96.20 Unspecified Escherichia coli [E. coli] as the cause of diseases classified elsewhere; I12.9 Hypertensive chronic kidney disease with stage 1 through stage 4 chronic kidney disease, or unspecified chronic kidney disease; E11.22 Type 2 diabetes mellitus with diabetic chronic kidney disease; N18.30 Chronic kidney disease, stage 3 unspecified; M19.90 Unspecified osteoarthritis, unspecified site; F17.290 Nicotine dependence, other tobacco product, uncomplicated; Z79.4 Long term (current) use of insulin; Z79.899 Other long term (current) drug therapy; Z20.822 Contact with and (suspected) exposure to COVID-19
CPT/HCPCS: 36415; 36416; 70450; 74176; 80048; 80053; 81003; 81015; 83605; 83690; 84484; 85025; 87077; 87086; 87186; 93005; 96361; 96365; 96372; 96375; 96376; G0378; J0360; J0696; J1644; J2270; J2405; J7050

== ENCOUNTER 2022-01-19 11:46 | Emergency (ER) | payer MEDICAID ==
[2022-01-19 12:59] LABS: #Basophils 0.1 thou/uL (0.0-0.2); #Eosinphils 0.3 thou/uL (0.0-0.7); #Lymphocytes 1.8 thou/uL (1.20-3.40); #Monocytes 0.6 thou/uL (0.11-0.59); #Neutrophils 6.1 thou/uL (1.40-6.50); %Basophils 0.7 % (0.0-1.0); %Eosinophils 3.1 % (0.0-10.0); %Lymphocytes 20.5 % (21.0-51.0); %Monocytes 6.7 % (0.0-10.0); Hemoglobin 10.4 g/dL (12.0-16.0); Mean Corpuscular HGB CONC 32.8 g/dL (32.0-36.0); Mean Corpuscular Hemoglobin 29.3 pg (27.0-31.0); Mean Corpuscular Volume 89.5 fl (78.0-98.0); Platelet Count 326 10x3/uL (130-400); RBC Distribution Width 14.5 % (11.5-14.5); Red Blood Cell (RBC) Count 3.53 mill/uL (4.20-5.40); White Blood Cell (WBC) Count 8.8 10x3/uL (4.8-10.8)
[2022-01-19 13:17] LABS: INR-International Normal Ratio 0.9; Prothrombin Time 12.8 sec (12.0-14.7)
[2022-01-19 13:18] LABS: PTT 32.4 sec (22.9-36.1)
[2022-01-19] MEDS ORDERED: Metoclopramide HCl 10 MG/2 ML VIAL ONE (13:19)
[2022-01-19] MEDS ORDERED: Ketorolac Tromethamine 30 MG/ML VIAL ONE (13:19)
[2022-01-19] MEDS ORDERED: diphenhydrAMINE 50 MG/ML VIAL ONE (13:19)
[2022-01-19 13:20] LABS: ALT (SGPT) 11 U/L (8-55); AST (SGOT) 23 U/L (5-34); Albumin 3.6 g/dL (3.4-4.8); Alkaline Phosphatase 67 U/L (40-110); Anion Gap 17 mmol/L (10-20); BUN (Urea Nitrogen) 27 mg/dL (9.8-20.1); Bilirubin, Total 0.3 mg/dL (0.2-1.2); Calc. Creatinine Clearance 0 mL/min (70-130); Calcium 9.2 mg/dL (7.8-10.44); Carbon Dioxide 18 mmol/L (23-31); Chloride 108 mmol/L (98-107); Estimated GFR 19; Glucose 68 mg/dL (83-110); Potassium 4.8 mmol/L (3.5-5.1); Protein, Total 7.6 g/dL (5.8-8.1); Sodium 138 mmol/L (136-145)
[2022-01-19 13:50] LABS: Magnesium 1.9 mg/dL (1.6-2.6); Phosphorus 4.2 mg/dL (2.3-4.7)
[2022-01-19] MEDS ORDERED: hydrALAZINE 20 MG/ML VIAL ONE (14:30)
[2022-01-19 15:05] LABS: Bilirubin Negative (Negative); Blood, Urine Trace (Negative); Clarity Clear (Clear); Glucose, Urine (Dipstick) Normal (Negative); Ketone, Urine Negative (Negative); Leukocyte Negative Leu/uL (Negative); Nitrite Negative (Negative); Protein, Urine (Dipstick) 200 mg/dL (Neg-Trace); RBC/HPF 0-3 HPF (0-3); Specific Gravity, Urine 1.011 (1.002-1.036); Urobilinogen Normal mg/dL (Less than 2); WBC/HPF 0-3 HPF (0-3)
[2022-01-19 15:06] LABS: Bacteria/HPF None Seen HPF (None Seen); Squamous Epithelial 0-3 HPF (0-3)
== END 2022-01-19 15:33 | disposition home or self-care (01) ==
LOC: ERS 11:46
DX: R51.9 Headache, unspecified (principal); E11.9 Type 2 diabetes mellitus without complications; I10 Essential (primary) hypertension; E78.5 Hyperlipidemia, unspecified; F17.210 Nicotine dependence, cigarettes, uncomplicated
CPT/HCPCS: 36415; 70450; 71045; 80053; 81003; 81015; 83735; 84100; 84484; 85025; 85610; 85730; 93005; 96374; 96375; J0360; J1200; J1885; J2765